=== PATIENT | female | born 1935 | race Caucasian/White ===

== ENCOUNTER 2016-11-03 15:35 | Inpatient (IN) | payer OTHER, MEDICARE ==
[2016-11-03] VITALS (10 sets, daily range): BP systolic 87–146; BP diastolic 50–88; PULSE 86–138; RESP 18–22; TEMP 97.9–98; O2SAT 92–95
[~2016-11-03] VITALS: Ht 149.9 cm; Wt 77.9 kg
[~2016-11-03 15:35] MED LIST: ALBU1AER INH; ASPI81TA82 PO; ATOR10TA PO; CETI10 PO; CLIN1CAP6 PO; ENAL20TA81 PO; GABA100C4 PO; GLUCTAB PO; HYDR-2768 PO; IRON325T2 PO; LEVO100T4 PO; MAGN400C2 PO; METF-324 PO; METO50TA PO; OMEP20TA39 PO; PERC5TAB12 PO; SPIRCAP INH; TAB-TAB PO; Z.0.OXYGEN INH
[2016-11-03] MEDS ORDERED: SODIUM CHLORIDE 0.9% FLUSH 5 ML FLUSH IVF PRN ×2 (16:00→18:15)
[2016-11-03] MEDS: RESP: ALBUTEROL 2.5 MG/3 ML NEB (SCH) INH (16:02)
--- NOTE | 2016-11-03 16:12 | PD ---
HPI Chief Complaint: copd exacerbation Time Seen by Provider: 15:42 Travel History International Travel<30 days: No Contact w/Intl Traveler<30days: No History of Present Illness HPI Patient is an 81-year-old female with history of COPD who wears 2 L of oxygen nasal cannula at nighttime, presents to the emergency room with COPD exacerbation. Patient reports for the past few days, she has had an increased productive cough with increased congestion. Reports that when she coughs, she has thick yellow -green mucous production. Reports no fever/chills. Reports that her son was sick prior to her with similar symptoms and may have gotten her sick. Patient denies any recent travels/trips. pt presents to ER via [facility]. pt was given solumedrol 125mg as well as 4 duonebs on route to ER. PFSH Past Medical History Cancer: No Cardiovascular Problems: No High Cholesterol: Yes COPD: Yes Diabetes: Yes Diminished Hearing: No Endocrine: Yes Gastrointestinal Disorders: Yes (COLITIS,DIVERTICULITIS ; GERD) Genitourinary: Yes (CURRENTLY ON CIPRO FOR UTI) Hepatitis: No Hiatal Hernia: No Hypertension: Yes Immune Disorder: No Musculoskeletal: Yes Neurologic: Yes (BACK PROBLEM; ARTHRITIS) Psychiatric: No Reproductive: No Respiratory: Yes (COPD; SLEEP APNEA ; O2 HS @2 LITERS) Sleep Apnea: Yes Thyroid Disease: Yes Menopausal: Yes Past Surgical History Abdominal Surgery: Yes ( X3) Section: Yes Eye Surgery: Yes (MAGNUS CATARACT EXTRACTION) Gynecologic Surgery: Yes ( X 3) Other Surgery: Yes Social History Alcohol Use: No Tobacco Use: No (quit 28 years ago) Substance Use: No Allergies-Medications (Allergen,Severity, Reaction): Coded Allergies: Penicillin (Verified Allergy, Intermediate, Rash, 11/03/16) Reported Meds & Prescriptions Reported Meds & Active Scripts Active Reported Levothyroxine (Levothyroxine Sodium) 88 Mcg Tab 88 Mcg PO DAILY Proair Hfa 8.5 GM Inh (Albuterol Sulfate) 90 Mcg/Act Aer 2 Puff INH Q6H PRN 108 mcg/actuation Latanoprost Opth Drops (Latanoprost) 0.005% Drops 1 Drop EACH EYE HS Refrigerate until opened. Stool Softener (Docusate Sodium) 100 Mg Cap 100 Mg PO BID Multivitamin Adults (Multiple Vitamins W/ Minerals) 1 Tab 1 Tab PO DAILY Iron (Ferrous Sulfate) 50 Mg Tab 65 Mg PO DAILY Aspirin 81 Mg Tabdr 81 Mg PO DAILY Fish Oil + D3 (Fish Oil-Cholecalciferol) 1,200-1,000 Mg-Unit Cap 1 Cap PO BID Magnesium Oxide 500 Mg Tab 500 Mg PO BID Vitamin B-12 (Cyanocobalamin) 500 Mcg Tab 500 Mcg PO DAILY Vitamin D (Cholecalciferol) 1,000 Unit Tab 1,000 Units PO DAILY Spiriva Handihaler (Tiotropium Inh) 18 Mcg Cap 18 Mcg INH DAILY 1 capsule = 18 mcg Gabapentin 100 Mg Cap 100 Mg PO TID Atorvastatin (Atorvastatin Calcium) 10 Mg Tab 10 Mg PO HS Hydrochlorothiazide 12.5 Mg Cap 12.5 Mg PO DAILY Enalapril (Enalapril Maleate) 20 Mg Tab 20 Mg PO BID Metoprolol Tartrate 50 Mg Tab 50 Mg PO BID Review of Systems General / Constitutional: No: Fever, Chills Eyes: No: Visual changes HENT: No: Headaches Cardiovascular: No: Chest Pain or Discomfort Respiratory: Positive: Cough, Shortness of Breath, Wheezing Gastrointestinal: No: Nausea, Vomiting, Diarrhea, Abdominal Pain Genitourinary: No: Dysuria Musculoskeletal: No: Pain Skin: No Rash Neurologic: No: Weakness Psychiatric: No: Depression Endocrine: No: Polydipsia Hematologic/Lymphatic: No: Easy Bruising Physical Exam Narrative GENERAL: Patient in mild distress SKIN: Warm and dry. HEAD: Atraumatic. Normocephalic. EYES: Pupils equal and round. No scleral icterus. No injection or drainage. ENT: No nasal bleeding or discharge. Mucous membranes pink and moist. NECK: Trachea midline. No JVD. CARDIOVASCULAR: Regular rate and rhythm. No murmur appreciated. RESPIRATORY: Patient with scattered wheezing on exam, pt with intercostal retractions GASTROINTESTINAL: Abdomen soft, non-tender, nondistended. Hepatic and splenic margins not palpable. MUSCULOSKELETAL: No obvious deformities. No clubbing. No cyanosis. +2 edema to b/l le's NEUROLOGICAL: Awake and alert. No obvious cranial nerve deficits. Motor grossly within normal limits. Normal speech. PSYCHIATRIC: Appropriate mood and affect; insight and judgment normal. Data Data Last Documented VS Vital Signs Date Time Temp Pulse Resp B/P Pulse Ox O2 Delivery O2 Flow Rate FiO2 11/03/16 16:23 95 2 11/03/16 16:23 Nasal Cannula 11/03/16 16:13 86 22 11/03/16 15:41 97.9 146/79 Orders Complete Blood Count With Diff (11/03/16 15:46) Comprehensive Metabolic Panel (11/03/16 15:46) B-Type Natriuretic Peptide (11/03/16 15:46) Act Partial Throm Time (Ptt) (11/03/16 15:46) Prothrombin Time / Inr (Pt) (11/03/16 15:46) Ckmb (Isoenzyme) Profile (11/03/16 15:46) Troponin I (11/03/16 15:46) Urinalysis - C+S If Indicated (11/03/16 15:46) Influenzae A/B Antigen (11/03/16 15:46) Blood Culture (11/03/16 15:46) Iv Access Insert/Monitor (11/03/16 15:46) Ecg Monitoring (11/03/16 15:46) Oximetry (11/03/16 15:46) Oxygen Administration (11/03/16 15:46) Chest, Single Ap (11/03/16 15:46) Sodium Chloride 0.9% Flush (Ns Flush) (11/03/16 16:00) Albuterol Neb (Albuterol Neb) (11/03/16 16:00) Lactic Acid Sepsis Protocol (11/03/16 15:46) Sputum Culture And Gram Stain (11/03/16 16:08) Magnesium Sulfate 1 Gm Premix (Magnesium (11/03/16 16:15) Albuterol Neb (Albuterol Neb) (11/03/16 17:15) Albuterol Neb (Albuterol Neb) (11/03/16 17:15) Admit Order (Ed Use Only) (11/03/16 17:13) Labs Laboratory Tests Test 11/03/16 11/03/16 15:50 17:00 White Blood Count 12.0 TH/MM3 Red Blood Count 3.78 MIL/MM3 Hemoglobin 12.0 GM/DL Hematocrit 37.0 % Mean Corpuscular Volume 97.9 FL Mean Corpuscular Hemoglobin 31.8 PG Mean Corpuscular Hemoglobin 32.5 % Concent Red Cell Distribution Width 12.0 % Platelet Count 228 TH/MM3 Mean Platelet Volume 8.8 FL Neutrophils (%) (Auto) 76.1 % Lymphocytes (%) (Auto) 16.3 % Monocytes (%) (Auto) 4.8 % Eosinophils (%) (Auto) 1.6 % Basophils (%) (Auto) 1.2 % Neutrophils # (Auto) 9.1 TH/MM3 Lymphocytes # (Auto) 2.0 TH/MM3 Monocytes # (Auto) 0.6 TH/MM3 Eosinophils # (Auto) 0.2 TH/MM3 Basophils # (Auto) 0.1 TH/MM3 CBC Comment DIFF FINAL Differential Comment Prothrombin Time 10.9 SEC Prothromb Time International 1.0 RATIO Ratio Activated Partial 28.0 SEC Thromboplast Time Sodium Level 131 MEQ/L Potassium Level 3.6 MEQ/L Chloride Level 90 MEQ/L Carbon Dioxide Level 29.6 MEQ/L Anion Gap 11 MEQ/L Blood Urea Nitrogen 16 MG/DL Creatinine 0.87 MG/DL Estimat Glomerular Filtration 63 ML/MIN Rate Random Glucose 111 MG/DL Lactic Acid Level 1.6 mmol/L Calcium Level 9.2 MG/DL Total Bilirubin 0.8 MG/DL Aspartate Amino Transf 27 U/L (AST/SGOT) Alanine Aminotransferase 17 U/L (ALT/SGPT) Alkaline Phosphatase 61 U/L Total Creatine Kinase 97 U/L Troponin I 0.02 NG/ML B-Type Natriuretic Peptide 196 PG/ML Total Protein 7.3 GM/DL Albumin 3.3 GM/DL Urine Collection Type CLEAN CATCH Urine Color YELLOW Urine Turbidity CLEAR Urine pH 6.5 Urine Specific [place] 1.015 Urine Protein TRACE mg/dL Urine Glucose (UA) NEG mg/dL Urine Ketones NEG mg/dL Urine Occult Blood NEG Urine Nitrite NEG Urine Bilirubin NEG Urine Leukocyte Esterase NEG Urine WBC 0-2 /hpf Urine Squamous Epithelial 0-5 /hpf Cells Microscopic Urinalysis Comment CULT NOT INDICATED MDM Medical Decision Making Medical Screen Exam Complete: Yes Emergency Medical Condition: Yes Interpretation(s) EKG at 1516: Normal sinus rhythm at 74 bpm, QT/qtc: 400/447, no acute st or t wave changes Differential Diagnosis copd exacerbation, pneumonia, influenza, PE, arrhythmia, electrolyte abnormality , pneumothorax Narrative Course Patient is an 81-year-old female with history of COPD, presents to emergency room with complaints of COPD exacerbation. Patient reports that for the past 3 days, she has had increased cough congestion with thick sputum production. Patient has had sick contacts at home. Patient was given Solu-Medrol 125 mg IV by EMS as well as 4 DuoNeb's Patient with continued wheezing and increased work of breathing with retraction on exam. IV magnesium as well as albuterol treatments ordered for patient. CBC, BMP, EKG, x-ray of chest, lactate and blood culture ordered for patient. We'll continue to monitor patient Kecia Dailey DO Nov 03, 2016 16:12
[2016-11-03] MEDS ORDERED: MAGNESIUM SULFATE 1 GM PREMIX 100 ML IV ONE (16:15)
[2016-11-03 16:18] LABS: AUTOMATED NEUTROPHIL # 9.1 TH/MM3 (1.8-7.7); BASOPHIL # 0.1 TH/MM3 (0-0.2); BASOPHIL % 1.2 % (0.0-2.0); EOSINOPHIL # 0.2 TH/MM3 (0-0.4); EOSINOPHIL % 1.6 % (0.0-4.0); LYMPH % 16.3 % (9.0-44.0); MEAN CELL VOLUME 97.9 FL (80.0-100.0); MEAN CORPUSCULAR HEMOGLOBIN 31.8 PG (27.0-34.0); MEAN CORPUSCULAR HGB CONC 32.5 % (32.0-36.0); MONO % 4.8 % (0.0-8.0); NEUT % 76.1 % (16.0-70.0); PLATELET COUNT 228 TH/MM3 (150-450); RED BLOOD COUNT 3.78 MIL/MM3 (4.00-5.30)
[2016-11-03 16:19] LABS: HEMO FLAGS DIFF FINAL
[2016-11-03 16:26] LABS: CHLORIDE 90 MEQ/L (98-107); POTASSIUM 3.6 MEQ/L (3.5-5.1); SODIUM (NA) 131 MEQ/L (136-145)
[2016-11-03 16:30] LABS: ANION GAP 11 MEQ/L (5-15); BICARBONATE 29.6 MEQ/L (21.0-32.0); BLOOD UREA NITROGEN 16 MG/DL (7-18)
[2016-11-03 16:32] LABS: PROTHROMBIN TIME - PATIENT 10.9 SEC (9.8-11.6)
[2016-11-03 16:33] LABS: ALT (GPT) 17 U/L (10-53); AST (GOT) 27 U/L (15-37); GLOMERULAR FILTRATION RATE 63 ML/MIN (>89)
[2016-11-03 16:35] LABS: TOTAL BILIRUBIN ADULT 0.8 MG/DL (0.2-1.0)
[2016-11-03 16:36] LABS: ALKALINE PHOSPHATASE 61 U/L (45-117)
[2016-11-03 16:38] LABS: CREATINE KINASE 97 U/L (26-192)
[2016-11-03] MEDS ORDERED: LATA0.002 EACH EYE (16:44)
[2016-11-03] MEDS ORDERED: ATOR10TA15 PO (16:44)
[2016-11-03] MEDS ORDERED: MAGN500T2 PO (16:44)
[2016-11-03] MEDS ORDERED: ASPI1TAB69 PO (16:44)
[2016-11-03] MEDS ORDERED: METO50TA PO (16:44)
[2016-11-03] MEDS ORDERED: GABA100C4 PO (16:44)
[2016-11-03] MEDS ORDERED: ENAL20TA PO (16:44)
[2016-11-03] MEDS ORDERED: STOO100C PO (16:44)
[2016-11-03] MEDS ORDERED: MULT1TAB84 PO (16:44)
[2016-11-03] MEDS ORDERED: [UNRECOGNIZED DRUG - CODE] PO (16:44)
[2016-11-03] MEDS ORDERED: SPIRCAP INH (16:44)
[2016-11-03] MEDS ORDERED: ALBUAER3 INH (16:44)
[2016-11-03] MEDS ORDERED: HYDR12.57 PO (16:44)
[2016-11-03] MEDS ORDERED: VITA500T4 PO (16:44)
[2016-11-03] MEDS ORDERED: VITA100064 PO (16:44)
[2016-11-03] MEDS ORDERED: FISHCAP4 PO (16:44)
[2016-11-03] MEDS ORDERED: FERR1TAB58 PO (16:44)
--- NOTE | 2016-11-03 17:08 | RADHPO ---
EXAM DATE/TIME: 11/03/2016 16:23 [facility] COMPARISON: CHEST SINGLE AP, October 23, 2014, 13:48. INDICATIONS : Shortness of breath. MEDICAL HISTORY : None. SURGICAL HISTORY : None. ENCOUNTER: Initial ACUITY: 1 day PAIN SCORE: 3/10 LOCATION: Bilateral chest FINDINGS: A single view of the chest demonstrates the lungs to be symmetrically aerated without evidence of mas s, infiltrate or effusion. The cardiomediastinal contours are unremarkable. Osseous structures are intact. CONCLUSION: No acute cardiopulmonary disease demonstrated. Pj Armando MD on November 03, 2016 at 17:06 Board Certified Radiologist. This report was verified electronically.
[2016-11-03] MEDS ORDERED: RESP: ALBUTEROL 2.5 MG/3 ML NEB (SCH) NEB ONE ×2 (17:15)
[2016-11-03 17:26] LABS: BLOOD, URINE NEG (NEG); GLUCOSE,URINE NEG (NEG); KETONE, URINE NEG (NEG); NITRITE,URINE NEG (NEG); PH, URINE 6.5 (5.0-8.5)
[2016-11-03 17:46] LABS: METHOD OF COLLECTION CLEAN CATCH
[2016-11-03 17:47] LABS: COMMENT (UR) CULT NOT INDICATED; CULTURE IF INDICATED CULT NOT INDICATED; SQUAMOUS EPITHELIAL CELL URINE 0-5 /hpf (0-5); URINE COLOR YELLOW (YELLW/STRAW); WBC, URINE 0-2 /hpf (0-5)
[2016-11-03] MEDS ORDERED: LEVO88TA2 PO (17:52)
--- NOTE | 2016-11-03 18:00 | HHI.HP ---
[facility] Valentino Ellis MD Admission Diagnosis COPD Exacerbation Diagnoses: (1) COPD exacerbation Diagnosis: Principal (2) Leukocytosis Diagnosis: Principal Chief Complaint: "can't breathe good" Travel History International Travel<30 Days: No Contact w/Intl Traveler <30 Da: No Traveled to Known Affected Are: No History of Present Illness 81 year-old female with history of COPD, diabetes mellitus, hypertension, hyperlipidemia, thyroid disease, anemia, GERD, and colitis is admitted for COPD exacerbation. 2 daughters at bedside. Patient states she can' t breathe well. She has cold symptoms which started on Friday. Her daughter states she has been wheezing and dizzy, hasn't eaten, and is weak. Daughter states she was unable to bring patient to the car and hence called ambulance. States the patient's son has been sick. The patient admits to presyncopal feeling and weakness. She admits to productive cough with yellow phlegm. Patient uses 2 L of oxygen at night and as needed during the day although her daughter states she is supposed to use it during the daytime. She admits to feeling constipated but states this is chronic. She denies any fevers, chills, chest pain. Denies any nausea, vomiting, or diarrhea. Her leadership program associate is Dr. Webb. PCP is Valentino lElis. Review of Systems Other ROS 10 negative unless otherwise indicated in history of present illness. Past Family Social History Past Medical History COPD on O2 at night Hypertension Hyperlipidemia A. fib with RVR during hospitalization in 2013 Diabetes mellitus. Patient was taken off metformin a couple of months ago due to hemoglobin A1c of 5.8. Thyroid disease Colitis, diverticulitis GERD Back pain, arthritis EMR indicates history of UTIs and pyelonephritis Past Surgical History 3 Bilateral cataract surgery Tonsillectomy Reported Medications Levothyroxine (Levothyroxine Sodium) 88 Mcg Tab 88 Mcg PO DAILY Proair Hfa 8.5 GM Inh (Albuterol Sulfate) 90 Mcg/Act Aer 2 Puff INH Q6H PRN 108 mcg/actuation Latanoprost Opth Drops (Latanoprost) 0.005% Drops 1 Drop EACH EYE HS Refrigerate until opened. Stool Softener (Docusate Sodium) 100 Mg Cap 100 Mg PO BID Multivitamin Adults (Multiple Vitamins W/ Minerals) 1 Tab 1 Tab PO DAILY Iron (Ferrous Sulfate) 50 Mg Tab 65 Mg PO DAILY Aspirin 81 Mg Tabdr 81 Mg PO DAILY Fish Oil + D3 (Fish Oil-Cholecalciferol) 1,200-1,000 Mg-Unit Cap 1 Cap PO BID Magnesium Oxide 500 Mg Tab 500 Mg PO BID Vitamin B-12 (Cyanocobalamin) 500 Mcg Tab 500 Mcg PO DAILY Vitamin D (Cholecalciferol) 1,000 Unit Tab 1,000 Units PO DAILY Spiriva Handihaler (Tiotropium Inh) 18 Mcg Cap 18 Mcg INH DAILY 1 capsule = 18 mcg Gabapentin 100 Mg Cap 100 Mg PO TID Atorvastatin (Atorvastatin Calcium) 10 Mg Tab 10 Mg PO HS Hydrochlorothiazide 12.5 Mg Cap 12.5 Mg PO DAILY Enalapril (Enalapril Maleate) 20 Mg Tab 20 Mg PO BID Metoprolol Tartrate 50 Mg Tab 50 Mg PO BID Allergies: Coded Allergies: Penicillin (Verified Allergy, Intermediate, Rash, 11/03/16) Family History Mother: Enlarged heart, diabetes. Cancer runs in father's side of family. Social History Patient quit smoking 50+ years ago. Denies alcohol use. Denies illicit drug use. Physical Exam Vital Signs Vital Signs Date Time Temp Pulse Resp B/P Pulse Ox O2 Delivery O2 Flow Rate FiO2 11/03/16 16:23 95 2 11/03/16 16:23 95 Nasal Cannula 2 11/03/16 16:13 86 22 95 Nasal Cannula 2 11/03/16 16:01 95 Nasal Cannula 2.00 11/03/16 15:41 97.9 86 22 146/79 95 Physical Exam GENERAL: This is a pleasant elderly patient who appears tired and ill. SKIN: No rashes, ecchymoses or lesions. HEAD: Atraumatic. Normocephalic. EYES: No scleral icterus. No injection or drainage. ENT: Tongue dry. Airway patent. NECK: Trachea midline. CARDIOVASCULAR: Tachycardic rate with regular rhythm. RESPIRATORY: Significant wheezing. Productive cough. GASTROINTESTINAL: Abdomen soft, non-tender, nondistended. MUSCULOSKELETAL: Bilateral lower extremity edema. NEUROLOGICAL: Awake and alert. Motor grossly within normal limits. Normal speech. Laboratory Laboratory Tests Test 11/03/16 11/03/16 15:50 17:00 White Blood Count 12.0 Red Blood Count 3.78 Hemoglobin 12.0 Hematocrit 37.0 Mean Corpuscular Volume 97.9 Mean Corpuscular Hemoglobin 31.8 Mean Corpuscular Hemoglobin 32.5 Concent Red Cell Distribution Width 12.0 Platelet Count 228 Mean Platelet Volume 8.8 Neutrophils (%) (Auto) 76.1 Lymphocytes (%) (Auto) 16.3 Monocytes (%) (Auto) 4.8 Eosinophils (%) (Auto) 1.6 Basophils (%) (Auto) 1.2 Neutrophils # (Auto) 9.1 Lymphocytes # (Auto) 2.0 Monocytes # (Auto) 0.6 Eosinophils # (Auto) 0.2 Basophils # (Auto) 0.1 CBC Comment DIFF FINAL Differential Comment Prothrombin Time 10.9 Prothromb Time International 1.0 Ratio Activated Partial 28.0 Thromboplast Time Sodium Level 131 Potassium Level 3.6 Chloride Level 90 Carbon Dioxide Level 29.6 Anion Gap 11 Blood Urea Nitrogen 16 Creatinine 0.87 Estimat Glomerular Filtration 63 Rate Random Glucose 111 Lactic Acid Level 1.6 Calcium Level 9.2 Total Bilirubin 0.8 Aspartate Amino Transf 27 (AST/SGOT) Alanine Aminotransferase 17 (ALT/SGPT) Alkaline Phosphatase 61 Total Creatine Kinase 97 Troponin I 0.02 B-Type Natriuretic Peptide 196 Total Protein 7.3 Albumin 3.3 Urine Collection Type CLEAN CATCH Urine Color YELLOW Urine Turbidity CLEAR Urine pH 6.5 Urine Specific [place] 1.015 Urine Protein TRACE Urine Glucose (UA) NEG Urine Ketones NEG Urine Occult Blood NEG Urine Nitrite NEG Urine Bilirubin NEG Urine Leukocyte Esterase NEG Urine WBC 0-2 Urine Squamous Epithelial 0-5 Cells Microscopic Urinalysis Comment CULT NOT INDICATED Date/Time Procedure Status Source Growth 11/03/16 16:05 Gram Stain Received Sputum Expectorated Sputum Pending 11/03/16 16:05 Sputum Culture Received Sputum Expectorated Sputum Pending 11/03/16 16:00 Aerobic Blood Culture Received Blood Peripheral Pending 11/03/16 16:00 Anaerobic Blood Culture Received Blood Peripheral Pending 11/03/16 15:50 Influenza Types A,B Antigen (MAURICE) - Final Complete Nasal Aspirate NEGATIVE FOR FLU A AND B ANTIGEN.... Result Diagram: 11/03/16 1550 11/03/16 1550 Assessment and Plan Assessment and Plan 81 year-old female with: COPD exacerbation: Significant wheezing on exam. Mild leukocytosis of 12.0. Oxygen saturation 95% on 2 L. Patient appears tired and generally weak due to illness. Influenza test is negative. Lactic acid is normal. BNP 196. Chest x- ray personally reviewed and compared to prior from 2013, appears similar. No acute abnormalities. Patient received 125 mg Solu-Medrol in ambulance and total of 8 DuoNeb's as well as 1 g of magnesium IV. -Start azithromycin 500 mg IV every 24 -Solu-Medrol 60 mg every 6 hours IV -DuoNebs q 4 hours scheduled with albuterol q2 prn. Patient's heart rate on telemetry is 130s-150 during evaluation likely due to 8 DuoNebs which had been administered although patient also did not take her metoprolol this morning per med rec. EKG personally interpreted without arrhythmia. Will not continue nebulizer treatments for a few hours due to this. -Monitor on telemetry -Sputum culture pending -Oxygen Chronic medical problems include anemia, hypertension, hyperlipidemia, thyroid disease: -Hold home Lisinopril and HCTZ due to hypotension on most recent vitals (96/54 MAP 68). Continue night dose of metoprolol as patient is tachycardic only if SBP >110. Constipation: Scheduled Colace, Dulcolax as needed. Deconditioning: Consult physical therapy. DVT prevention: heparin sq. Written by Eli Arce PA-C acting as scribe for Dr. Fontana on 11/03/16 at 1745. The documentation accurately reflects the work and decisions performed face-to- face by de Dr. Fontana on 11/03/16 at 1745. Discussed Condition With ED physician, patient and her daughters Eli Arce Nov 03, 2016 18:00
[2016-11-03] MEDS: AZITHROMYCIN INJ 500 MG in SODIUM CHLOR 0.9% 250 ML INJ 250 ML IV SCH (18:27)
[2016-11-03] MEDS ORDERED: BISACODYL 10 MG SUPP PR PRN (19:00)
[2016-11-03] MEDS ORDERED: RESP: ALBUTEROL 2.5 MG/3 ML NEB (PRN) INH (20:00)
[2016-11-03] MEDS: RESP: ALBUTEROL 2.5 MG/IPRATROPIUM 0.5 MG NEB (SCH) INH ×2 (20:00→23:20)
[2016-11-03] MEDS: HEPARIN SODIUM - SQ 10,000 UNITS/ML VIAL SQ SCH (20:49)
[2016-11-03] MEDS: METOPROLOL TARTRATE 50 MG TAB PO SCH (20:50)
[2016-11-03] MEDS: SODIUM CHLORIDE 0.9% FLUSH 5 ML FLUSH IVF SCH (20:50)
[2016-11-03] MEDS: MAGNESIUM OXIDE 400 MG TAB PO SCH (20:50)
[2016-11-03] MEDS: DOCUSATE SODIUM 100 MG CAP PO SCH (20:50)
[2016-11-03] MEDS: ATORVASTATIN 10 MG TAB PO SCH (20:53)
[2016-11-03] MEDS: LATANOPROST 0.005% OPHT SOLN 2.5 ML BTL EACH EYE SCH (20:53)
[2016-11-03] MEDS: methylPREDNISolone SOD SUCC 125 MG/2 ML VIAL IVP SCH (21:34)
[2016-11-04] VITALS (12 sets, daily range): BP systolic 131–156; BP diastolic 70–77; PULSE 63–71; RESP 17–18; TEMP 96.5–97.8; O2SAT 92–97
[2016-11-04] MEDS: methylPREDNISolone SOD SUCC 125 MG/2 ML VIAL IVP SCH ×4 (03:45→21:33)
[2016-11-04] MEDS: RESP: ALBUTEROL 2.5 MG/IPRATROPIUM 0.5 MG NEB (SCH) INH ×6 (04:12→23:24)
[2016-11-04] MEDS: ONDANSETRON HCL 4 MG/2 ML VIAL IV PUSH PRN ×2 (04:29→16:52)
[2016-11-04] MEDS: LEVOTHYROXINE SODIUM 88 MCG TAB PO SCH (05:55)
[2016-11-04 06:28] LABS: AUTOMATED NEUTROPHIL # 10.9 TH/MM3 (1.8-7.7); BASOPHIL # 0.3 TH/MM3 (0-0.2); BASOPHIL % 2.5 % (0.0-2.0); EOSINOPHIL # 0.1 TH/MM3 (0-0.4); EOSINOPHIL % 0.7 % (0.0-4.0); LYMPH % 5.3 % (9.0-44.0); LYMPHOCYTE # 0.6 TH/MM3 (1.0-4.8); MEAN CELL VOLUME 97.4 FL (80.0-100.0); MEAN CORPUSCULAR HGB CONC 32.9 % (32.0-36.0); NEUT % 90.5 % (16.0-70.0); PLATELET COUNT 224 TH/MM3 (150-450); RED BLOOD COUNT 3.59 MIL/MM3 (4.00-5.30); RED CELL DISTRIBUTION WIDTH 11.9 % (11.6-17.2); WHITE BLOOD COUNT 12.1 TH/MM3 (4.0-11.0)
[2016-11-04 06:29] LABS: HEMO FLAGS AUTO DIFF
[2016-11-04 06:38] LABS: BICARBONATE 30.8 MEQ/L (21.0-32.0)
[2016-11-04 07:05] LABS: BANDS 3 % (0-6); NEUTROPHIL # MANUAL DIFF 10.9 TH/MM3 (1.8-7.7); POLYS (SEG NEUTROPHILS) 87 % (16-70); SCAN/DIFF FINAL DIFF MANUAL; WBC DIFF SAMPLE 100
[2016-11-04] MEDS: HEPARIN SODIUM - SQ 10,000 UNITS/ML VIAL SQ SCH ×2 (08:51→21:31)
[2016-11-04] MEDS: ASPIRIN EC 81 MG TABEC PO SCH (08:52)
[2016-11-04] MEDS: DOCUSATE SODIUM 100 MG CAP PO SCH ×2 (08:52→21:32)
[2016-11-04] MEDS: MULTIVITAMINS/MINERALS THERAPEUTIC TAB PO SCH (08:53)
[2016-11-04] MEDS: METOPROLOL TARTRATE 50 MG TAB PO SCH ×2 (08:53→21:31)
[2016-11-04] MEDS: MAGNESIUM OXIDE 400 MG TAB PO SCH ×2 (08:53→21:32)
[2016-11-04] MEDS: CHOLECALCIFEROL (VIT D3) 1000 UNIT TAB PO SCH (08:53)
[2016-11-04] MEDS: CYANOCOBALAMIN 1,000 MCG TAB PO SCH (08:54)
[2016-11-04] MEDS: SODIUM CHLORIDE 0.9% FLUSH 5 ML FLUSH IVF SCH ×2 (08:55→21:33)
[2016-11-04] MEDS ORDERED: GABAPENTIN 100 MG CAP PO SCH (09:00)
[2016-11-04] MEDS ORDERED: FERROUS SULFATE 325 MG (65 MG ELEMENTAL IRON) TAB PO SCH (09:00)
[2016-11-04] MEDS ORDERED: LEVOTHYROXINE SODIUM 88 MCG TAB PO SCH (09:00)
[2016-11-04] MEDS ORDERED: GABAPENTIN 100 MG CAP PO ONE (09:15)
[2016-11-04] MEDS ORDERED: GLUCAGON 1 MG/ML VIAL OTHER PRN (09:30)
[2016-11-04] MEDS ORDERED: DEXTROSE 50% IN WATER 50 ML VIAL(D50) IV PUSH PRN (09:30)
[2016-11-04] MEDS: ENALAPRIL MALEATE 10 MG TAB PO SCH ×2 (10:19→21:33)
[2016-11-04] MEDS: HYDROCHLOROTHIAZIDE 12.5 MG CAP PO SCH (10:19)
[2016-11-04] MEDS: ACETAMINOPHEN 325 MG TAB PO PRN (10:20)
[2016-11-04] MEDS: INSULIN ASPART SUPPLEMENTAL SCALE SQ SCH ×3 (13:27→21:00)
[2016-11-04] MEDS: AZITHROMYCIN INJ 500 MG in SODIUM CHLOR 0.9% 250 ML INJ 250 ML IV SCH (16:53)
--- NOTE | 2016-11-04 17:17 | HHI.PR ---
Subjective Remarks Pt sleeping during duoneb treatment, she remains weak per nursing staff, stable on NC. Objective Vitals Vital Signs Date Time Temp Pulse Resp B/P Pulse Ox O2 Delivery O2 Flow Rate FiO2 11/04/16 12:00 96.6 63 17 136/74 93 11/04/16 11:43 71 11/04/16 08:06 96 Nasal Cannula 2.00 11/04/16 08:00 97.0 63 18 136/76 96 11/04/16 07:09 Nasal Cannula 2 11/04/16 07:09 97 Nasal Cannula 2 11/04/16 07:09 97.8 68 17 156/77 97 Nasal Cannula 2 11/04/16 05:00 93 Nasal Cannula 2 11/04/16 05:00 70 18 153/71 93 Nasal Cannula 2 11/04/16 03:35 64 18 142/76 92 Nasal Cannula 2 11/04/16 03:00 18 92 Nasal Cannula 2 11/04/16 01:40 65 18 134/70 93 Nasal Cannula 2 11/04/16 01:00 18 93 Nasal Cannula 2 11/03/16 23:14 121 18 128/88 92 Nasal Cannula 2 11/03/16 23:00 92 Nasal Cannula 2 11/03/16 22:03 123 18 123/69 93 Nasal Cannula 2 11/03/16 21:21 128 18 117/71 92 Nasal Cannula 2 11/03/16 21:00 92 Nasal Cannula 2 11/03/16 20:43 124 20 121/61 92 Nasal Cannula 2 11/03/16 19:55 93 Nasal Cannula 2.00 11/03/16 19:22 98.0 125 18 87/50 93 Nasal Cannula 2 11/03/16 19:01 20 94 Nasal Cannula 2 11/03/16 18:28 138 20 96/54 94 Nasal Cannula 2 I/O 11/03/16 11/03/16 11/03/16 11/04/16 11/04/16 11/04/16 06:59 14:59 22:59 06:59 14:59 22:59 Intake Total 100 ml Balance 100 ml Intake IV Total 100 ml # Voids 2 Result Diagram: 11/04/16 0605 11/04/16 06 Objective Remarks GENERAL: Well-nourished, well-developed obese elderly CF patient. SKIN: Warm and dry. HEAD: Normocephalic. EYES: No scleral icterus. No injection or drainage. NECK: Supple, trachea midline. No JVD or lymphadenopathy. CARDIOVASCULAR: Regular rate and rhythm without murmurs, gallops, or rubs. RESPIRATORY: Breath sounds equal bilaterally with end exp wheeze anteriorly. No accessory muscle use. GASTROINTESTINAL: Abdomen soft, non-tender, nondistended. EXTREMITIES: No cyanosis, or edema. NEUROLOGICAL: sleeping. A/P Problem List: (1) COPD exacerbation ICD Code: J44.1 Status: Acute (2) Leukocytosis ICD Code: D72.829 Status: Acute Assessment and Plan 81 year-old female with: COPD exacerbation: Significant wheezing on exam yesterday, much improved today but she still requires continued inpatient treatment as she failed treatment in [facility] and ER. -Continue azithromycin 500 mg IV every 24 -Solu-Medrol 60 mg every 6 hours IV -DuoNebs q 4 hours scheduled with albuterol q2 prn. -Monitor on telemetry -Sputum culture growing Moraxella Catarrhalis - cont zithromax -Oxygen via NC -Hypertension. Blood pressure is running higher. I will resume her lisinopril. Hold HCTZ. Continue metoprolol. -Chronic anemia - stable. -Hypothyroidism. Continue Synthroid. -Constipation: Scheduled Colace, Dulcolax as needed. -Generalized weakness. Continue PT. -DVT prevention: heparin sq. Luh Banks MD Nov 04, 2016 17:17
[2016-11-04] MEDS ORDERED: MAGNESIUM HYDROXIDE SUSP 30 ML CUP PO PRN (18:30)
[2016-11-04] MEDS: POLYETHYLENE GLYCOL 17 GM PKG PO SCH (21:28)
[2016-11-04] MEDS: ATORVASTATIN 10 MG TAB PO SCH (21:32)
[2016-11-04] MEDS: GABAPENTIN 100 MG CAP PO SCH (21:32)
[2016-11-04] MEDS: LATANOPROST 0.005% OPHT SOLN 2.5 ML BTL EACH EYE SCH (21:42)
[2016-11-05] VITALS (8 sets, daily range): BP systolic 109–172; BP diastolic 59–92; PULSE 62–72; RESP 16–18; TEMP 97.5–98; O2SAT 18–98
[2016-11-05] MEDS: RESP: ALBUTEROL 2.5 MG/IPRATROPIUM 0.5 MG NEB (SCH) INH ×6 (03:56→23:35)
[2016-11-05] MEDS: ACETAMINOPHEN 325 MG TAB PO PRN (04:34)
[2016-11-05] MEDS: methylPREDNISolone SOD SUCC 125 MG/2 ML VIAL IVP SCH ×4 (04:36→21:44)
[2016-11-05] MEDS: LEVOTHYROXINE SODIUM 88 MCG TAB PO SCH (07:01)
[2016-11-05] MEDS: INSULIN ASPART SUPPLEMENTAL SCALE SQ SCH ×4 (07:05→21:35)
[2016-11-05] MEDS: MAGNESIUM OXIDE 400 MG TAB PO SCH ×2 (08:34→21:34)
[2016-11-05] MEDS: CHOLECALCIFEROL (VIT D3) 1000 UNIT TAB PO SCH (08:34)
[2016-11-05] MEDS: GABAPENTIN 100 MG CAP PO SCH ×2 (08:34→21:34)
[2016-11-05] MEDS: METOPROLOL TARTRATE 50 MG TAB PO SCH ×2 (08:34→21:34)
[2016-11-05] MEDS: MULTIVITAMINS/MINERALS THERAPEUTIC TAB PO SCH (08:34)
[2016-11-05] MEDS: CYANOCOBALAMIN 1,000 MCG TAB PO SCH ×2 (08:34→09:00)
[2016-11-05] MEDS: DOCUSATE SODIUM 100 MG CAP PO SCH ×2 (08:34→21:34)
[2016-11-05] MEDS: ASPIRIN EC 81 MG TABEC PO SCH (08:34)
[2016-11-05] MEDS: ENALAPRIL MALEATE 10 MG TAB PO SCH ×2 (08:34→21:34)
[2016-11-05] MEDS: HYDROCHLOROTHIAZIDE 12.5 MG CAP PO SCH (08:34)
[2016-11-05] MEDS: HEPARIN SODIUM - SQ 10,000 UNITS/ML VIAL SQ SCH ×2 (08:35→21:35)
[2016-11-05] MEDS: POLYETHYLENE GLYCOL 17 GM PKG PO SCH (08:35)
[2016-11-05] MEDS: SODIUM CHLORIDE 0.9% FLUSH 5 ML FLUSH IVF SCH ×2 (08:38→21:35)
[2016-11-05] MEDS ORDERED: IBUPROFEN 600 MG TAB PO PRN (09:00)
--- NOTE | 2016-11-05 12:12 | HHI.PR ---
Subjective Remarks The patient states that her cough and wheezing have improved by about 25% but she still gets easily fatigued. She does not feel any stronger. She does not want to go to a rehabilitation at discharge and she states she cannot afford co- pay for home health care. Objective Vitals Vital Signs Date Time Temp Pulse Resp B/P Pulse Ox O2 Delivery O2 Flow Rate FiO2 11/05/16 12:00 97.9 68 17 148/82 95 11/05/16 08:00 62 11/05/16 08:00 97.6 70 18 172/89 18 11/05/16 07:37 98 Nasal Cannula 2.00 11/05/16 04:00 97.5 72 18 159/87 96 11/05/16 00:00 98.0 68 16 109/59 96 11/04/16 23:24 95 Nasal Cannula 2.00 11/04/16 20:00 65 11/04/16 20:00 97.5 67 18 131/73 96 11/04/16 19:48 97 Nasal Cannula 2.00 11/04/16 16:00 96.5 64 18 133/76 95 I/O 11/04/16 11/04/16 11/04/16 11/05/16 11/05/16 11/05/16 06:59 14:59 22:59 06:59 14:59 22:59 Intake Total 240 ml 280 ml Balance 240 ml 280 ml Intake Oral 240 ml 280 ml # Voids 6 1 1 # Bowel Movements 0 0 0 Result Diagram: 11/04/16 0605 11/04/16 06 Objective Remarks GENERAL: Well-nourished, well-developed obese elderly CF patient. Appears fatigued. SKIN: Warm and dry. HEAD: Normocephalic. EYES: No scleral icterus. No injection or drainage. NECK: Supple, trachea midline. No JVD or lymphadenopathy. CARDIOVASCULAR: Regular rate and rhythm without murmurs, gallops, or rubs. RESPIRATORY: Breath sounds equal bilaterally with exp wheeze anteriorly. No accessory muscle use. GASTROINTESTINAL: Abdomen soft, non-tender, nondistended. EXTREMITIES: No cyanosis, or edema. NEUROLOGICAL: awake, alert, cognitively sharp. A/P Problem List: (1) COPD exacerbation ICD Code: J44.1 Status: Acute (2) Leukocytosis ICD Code: D72.829 Status: Acute Assessment and Plan 81 year-old female with: COPD exacerbation: Still wheezing, but she still requires continued inpatient treatment as she failed treatment in [facility] and ER. -Continue azithromycin 500 mg IV every 24 -Solu-Medrol 60 mg every 6 hours IV -DuoNebs q 4 hours scheduled with albuterol q2 prn. -Monitor on telemetry -Sputum culture growing Moraxella Catarrhalis - cont zithromax -Oxygen via NC -Hypertension. Cont HCTZ, enalapril, metoprolol. -Chronic anemia - stable. -Hypothyroidism. Continue Synthroid. -Constipation: Scheduled Colace, Dulcolax as needed. MOM this morning. -Generalized weakness. Continue PT. -DVT prevention: heparin sq. Luh Banks MD Nov 05, 2016 12:12
[2016-11-05] MEDS: AZITHROMYCIN INJ 500 MG in SODIUM CHLOR 0.9% 250 ML INJ 250 ML IV SCH (17:00)
[2016-11-05] MEDS: oxyCODONE/ACETAMINOPHEN 5 MG/325 MG TAB PO PRN ×2 (17:00→23:18)
[2016-11-05] MEDS: ATORVASTATIN 10 MG TAB PO SCH (21:34)
[2016-11-05] MEDS: LATANOPROST 0.005% OPHT SOLN 2.5 ML BTL EACH EYE SCH (21:39)
[2016-11-05] MEDS: FERROUS SULFATE 325 MG (65 MG ELEMENTAL IRON) TAB PO SCH (21:43)
[2016-11-06] VITALS: BP 169/92; PULSE 61; RESP 18; TEMP 96.9; O2SAT 98
[2016-11-06] MEDS: RESP: ALBUTEROL 2.5 MG/IPRATROPIUM 0.5 MG NEB (SCH) INH ×4 (03:57→15:14)
[2016-11-06] MEDS: LEVOTHYROXINE SODIUM 88 MCG TAB PO SCH (05:23)
[2016-11-06] MEDS: methylPREDNISolone SOD SUCC 125 MG/2 ML VIAL IVP SCH ×3 (05:23→15:56)
[2016-11-06] MEDS: INSULIN ASPART SUPPLEMENTAL SCALE SQ SCH ×3 (05:24→16:00)
[2016-11-06 07:26] VITALS: O2SAT 92
[2016-11-06 08:00] VITALS: BP 142/78; PULSE 62; RESP 17; TEMP 97.1; O2SAT 93
[2016-11-06] MEDS: ASPIRIN EC 81 MG TABEC PO SCH (09:19)
[2016-11-06] MEDS: METOPROLOL TARTRATE 50 MG TAB PO SCH (09:19)
[2016-11-06] MEDS: HYDROCHLOROTHIAZIDE 12.5 MG CAP PO SCH (09:19)
[2016-11-06] MEDS: CHOLECALCIFEROL (VIT D3) 1000 UNIT TAB PO SCH (09:19)
[2016-11-06] MEDS: DOCUSATE SODIUM 100 MG CAP PO SCH (09:20)
[2016-11-06] MEDS: MAGNESIUM OXIDE 400 MG TAB PO SCH (09:20)
[2016-11-06] MEDS: FERROUS SULFATE 325 MG (65 MG ELEMENTAL IRON) TAB PO SCH (09:20)
[2016-11-06] MEDS: MULTIVITAMINS/MINERALS THERAPEUTIC TAB PO SCH (09:20)
[2016-11-06] MEDS: CYANOCOBALAMIN 1,000 MCG TAB PO SCH (09:21)
[2016-11-06] MEDS: ENALAPRIL MALEATE 10 MG TAB PO SCH (09:21)
[2016-11-06] MEDS: GABAPENTIN 100 MG CAP PO SCH (09:22)
[2016-11-06] MEDS: SODIUM CHLORIDE 0.9% FLUSH 5 ML FLUSH IVF SCH (09:23)
[2016-11-06] MEDS: POLYETHYLENE GLYCOL 17 GM PKG PO SCH (09:23)
[2016-11-06] MEDS: HEPARIN SODIUM - SQ 10,000 UNITS/ML VIAL SQ SCH (09:23)
[2016-11-06] MEDS ORDERED: PRED20 PO (11:48)
[2016-11-06] MEDS ORDERED: NEBULIZER1 MI1 (11:48)
[2016-11-06] MEDS ORDERED: AZIT500T2 PO (11:48)
[2016-11-06] MEDS ORDERED: VENTAER INH (11:48)
[2016-11-06] MEDS ORDERED: IPRASOL INH (11:48)
--- NOTE | 2016-11-06 11:49 | HHI.FF ---
Face to Face Verification Diagnosis: (1) Positive blood cultures (2) COPD exacerbation (3) Chronic respiratory failure Physical Therapy Order: Evaluate and Treat Occupational Therapy Order: Evaluate and Treat Home Health Nursing Order: Medical education Oxygen administration education Medication education-adverse effect Nursing assessment with vital signs I have seen patient Ana Zepeda on 11/06/16. My clinical findings support the need for the requested home health care services because: Ltd mobility - disease progression Patient has SOB Deconditioned w/ increased weakness I certify that my clinical findings support that this patient is homebound because: Unsteady gait/balance Need for psychosocial assistance Luh Banks MD Nov 06, 2016 11:49
[2016-11-06] MEDS ORDERED: REME15TA PO (11:51)
[2016-11-06] MEDS: ACETAMINOPHEN 325 MG TAB PO PRN (11:52)
--- NOTE | 2016-11-06 11:54 | HHI.DS ---
Discharge Summary Admission Date Nov 04, 2016 at 16:22 Discharge Date: Nov 06, 2016 Admitting Diagnosis COPD Exacerbation (1) COPD exacerbation ICD Code: J44.1 Diagnosis: Principal (2) Leukocytosis ICD Code: D72.829 Diagnosis: Principal (3) Chronic respiratory failure ICD Code: J96.10 (4) Weakness generalized ICD Code: R53.1 (5) Depression ICD Code: F32.9 Procedures None Brief History - From Admission 81 year-old female with history of COPD, diabetes mellitus, hypertension, hyperlipidemia, thyroid disease, anemia, GERD, and colitis is admitted for COPD exacerbation. 2 daughters at bedside. Patient states she can' t breathe well. She has cold symptoms which started on Friday. Her daughter states she has been wheezing and dizzy, hasn't eaten, and is weak. Daughter states she was unable to bring patient to the car and hence called ambulance. States the patient's son has been sick. The patient admits to presyncopal feeling and weakness. She admits to productive cough with yellow phlegm. Patient uses 2 L of oxygen at night and as needed during the day although her daughter states she is supposed to use it during the daytime. She admits to feeling constipated but states this is chronic. She denies any fevers, chills, chest pain. Denies any nausea, vomiting, or diarrhea. Her inventory control assistant is Dr. Webb. PCP is Valentino Ellis. CBC/BMP: 11/04/16 0605 11/04/16 0605 Significant Findings Laboratory Tests Test 11/03/16 11/04/16 15:50 06:05 White Blood Count 12.0 TH/MM3 12.1 TH/MM3 (4.0-11.0) (4.0-11.0) Red Blood Count 3.78 MIL/MM3 3.59 MIL/MM3 (4.00-5.30) (4.00-5.30) Neutrophils (%) (Auto) 76.1 % 90.5 % (16.0-70.0) (16.0-70.0) Neutrophils # (Auto) 9.1 TH/MM3 10.9 TH/MM3 (1.8-7.7) (1.8-7.7) Sodium Level 131 MEQ/L 131 MEQ/L (136-145) (136-145) Chloride Level 90 MEQ/L 90 MEQ/L (98-107) (98-107) Estimat Glomerular Filtration 63 ML/MIN (>89) 53 ML/MIN (>89) Rate Random Glucose 111 MG/DL 170 MG/DL (74-106) (74-106) B-Type Natriuretic Peptide 196 PG/ML (0-100) Albumin 3.3 GM/DL (3.4-5.0) Hemoglobin 11.5 GM/DL (11.6-15.3) Lymphocytes (%) (Auto) 5.3 % (9.0-44.0) Basophils (%) (Auto) 2.5 % (0.0-2.0) Lymphocytes # (Auto) 0.6 TH/MM3 (1.0-4.8) Basophils # (Auto) 0.3 TH/MM3 (0-0.2) Neutrophils % (Manual) 87 % (16-70) Lymphocytes % 7 % (9-44) Neutrophils # (Manual) 10.9 TH/MM3 (1.8-7.7) Blood Urea Nitrogen 24 MG/DL (7-18) Imaging Last Impressions Chest X-Ray 11/03/16 1546 Signed Impressions: Service Date/Time: Thursday, November 03, 2016 16:23 - CONCLUSION: No acute cardiopulmonary disease demonstrated. Pj Armando MD PE at Discharge GENERAL: Well-nourished, well-developed obese elderly CF patient. Appears fatigued. SKIN: Warm and dry. HEAD: Normocephalic. EYES: No scleral icterus. No injection or drainage. NECK: Supple, trachea midline. No JVD or lymphadenopathy. CARDIOVASCULAR: Regular rate and rhythm without murmurs, gallops, or rubs. RESPIRATORY: Breath sounds equal bilaterally with exp wheeze anteriorly. No accessory muscle use. GASTROINTESTINAL: Abdomen soft, non-tender, nondistended. EXTREMITIES: No cyanosis, or edema. NEUROLOGICAL: awake, alert, cognitively sharp. Pt update on day of discharge Breathing well. C/o headache and constipation which is a chronic problem for her. Hospital Course Mrs. Zepeda was admitted to the hospital and treated with IV Solu-Medrol, bronchodilators. The patient made clinical progress and ambulated well today with physical therapy. She is on oxygen at home only at night but is requiring this 24 7 currently. While hospitalized she appeared depressed and her family voiced concerns about this. Patient endorses depression and insomnia and would like to try Remeron which will be prescribed to her. She is to follow-up with her primary care physician Dr. Ellis within 1 week. The patient is advised to wear her oxygen 24 7 at this time. She's been divided prescriptions for prednisone, nebulizer machine and Ventolin inhaler. Pt Condition on Discharge: Stable Discharge Disposition: Disch w/ Home Health Serv Discharge Time: > 30 minutes Discharge Instructions DIET: Follow Instructions for: Heart Healthy Diet Activities you can perform: Regular-No Restrictions New Medications: Albuterol 18 GM Inh (Ventolin Hfa 18 GM Inh) 90 Mcg/Act Aer 2 PUFF INH Q4H PRN SHORTNESS OF BREATH #1 Ref 0 INHALER Azithromycin (Azithromycin) 500 Mg Tab 500 MG PO DAILY Infection #2 Ref 0 TAB Ipratropium-Albuterol Neb (Duoneb) 0.5-2.5 Mg/3 Ml Neb 1 NEBULE INH Q4HR NEB Breathing Treatment #180 Ref 0 NEBULE Mirtazapine (Remeron) 15 Mg Tab 15 MG PO HS Depression Control #30 Ref 0 TAB Nebulizer (Nebulizer) 1 Mis Mis 1 EA .ROUTE DIRECTED Breathing Treatment #1 Ref 0 EA Prednisone (Prednisone) 20 Mg Tab 20 MG PO DIRECTED 40 MG twice a day x 3 days, then 20 MG daily x 3 days, then 10 MG daily x 3 days Inflammation #11 Ref 0 TAB Polyethylene Glycol 3350 Powder (Polyethylene Glycol 3350 Powder) 17 Gm Pow 17 GM PO DAILY constipation #1 BOTTLE Continued Medications: Albuterol 8.5 GM Inh (Proair Hfa 8.5 GM Inh) 90 Mcg/Act Aer 2 PUFF INH Q6H 108 mcg/actuation PRN SHORTNESS OF BREATH #1 Ref 0 INHALER Aspirin (Aspirin) 81 Mg Tabdr 81 MG PO DAILY TAB Atorvastatin (Atorvastatin) 10 Mg Tab 10 MG PO HS Cholesterol Management #30 Ref 0 TAB Cholecalciferol (Vitamin D) 1,000 Unit Tab 1000 UNITS PO DAILY Nutritional Supplement #1 Ref 0 BOTTLE Cyanocobalamin (Vitamin B-12) 500 Mcg Tab 500 MCG PO DAILY Nutritional Supplement #1 Ref 0 BOTTLE Docusate Sodium (Stool Softener) 100 Mg Cap 100 MG PO BID Enalapril (Enalapril) 20 Mg Tab 20 MG PO BID #30 Ref 0 TAB Ferrous Sulfate (Iron) 50 Mg Tab 65 MG PO DAILY Nutritional Supplement Ref 0 TAB Fish Oil-Cholecalciferol (Fish Oil + D3) 1,200-1,000 Mg-Unit Cap 1 CAP PO BID Nutritional Supplement #30 Ref 0 CAP Gabapentin (Gabapentin) 100 Mg Cap 100 MG PO TID #90 Ref 0 CAP Hydrochlorothiazide (Hydrochlorothiazide) 12.5 Mg Cap 12.5 MG PO DAILY #30 Ref 0 CAP Latanoprost Opth Drops (Latanoprost Opth Drops) 0.005% Drops 1 DROP EACH EYE HS Refrigerate until opened. Glaucoma #2.5 Ref 0 ML Levothyroxine (Levothyroxine) 88 Mcg Tab 88 MCG PO DAILY Thyroid #30 Ref 0 TAB Magnesium Oxide (Magnesium Oxide) 500 Mg Tab 500 MG PO BID Ref 0 TAB Metoprolol Tartrate (Metoprolol Tartrate) 50 Mg Tab 50 MG PO BID #60 Ref 0 TAB Multiple Vitamins W/ Minerals (Multivitamin Adults) 1 Tab 1 TAB PO DAILY Nutritional Supplement Ref 0 TAB Tiotropium Inh (Spiriva Handihaler) 18 Mcg Cap 18 MCG INH DAILY 1 capsule = 18 mcg COPD #30 Ref 0 CAP Luh Banks MD Nov 06, 2016 11:54
[2016-11-06] MEDS ORDERED: POLY17S PO (11:55)
[2016-11-06] MEDS ORDERED: ACETAMIN 325 MG/BUTALBITAL 50 MG/CAFFEINE 40 MG TAB PO ONE (12:00)
[2016-11-06] MEDS: ONDANSETRON HCL 4 MG/2 ML VIAL IV PUSH PRN (12:45)
[2016-11-06] MEDS: AZITHROMYCIN INJ 500 MG in SODIUM CHLOR 0.9% 250 ML INJ 250 ML IV SCH (17:07)
== END 2016-11-06 18:25 | disposition home health service (06) | DRG 191 ==
LOC: PHED 15:35 → PHEDA 17:15 → PHEDH 20:38 → PH3B 11-04 07:54 → OBSVTOIN 11-04 16:22
PROVIDERS: ADMIT Family Medicine; ATTEND Family Medicine
PROC: 3E0F7GC Introduction of Other Therapeutic Substance into Respiratory Tract, Via Natural or Artificial Opening (ICD-10-PCS; principal; 2016-11-04)
DX: J44.1 Chronic obstructive pulmonary disease with (acute) exacerbation (principal); J96.10 Chronic respiratory failure, unspecified whether with hypoxia or hypercapnia; Z99.81 Dependence on supplemental oxygen; E11.9 Type 2 diabetes mellitus without complications; I10 Essential (primary) hypertension; D72.829 Elevated white blood cell count, unspecified; E03.9 Hypothyroidism, unspecified; E78.00 Pure hypercholesterolemia, unspecified; M19.90 Unspecified osteoarthritis, unspecified site; G47.30 Sleep apnea, unspecified; K21.9 Gastro-esophageal reflux disease without esophagitis; E78.5 Hyperlipidemia, unspecified; K59.00 Constipation, unspecified; M54.9 Dorsalgia, unspecified; Z87.891 Personal history of nicotine dependence; F32.9 Major depressive disorder, single episode, unspecified; G47.00 Insomnia, unspecified
CPT/HCPCS: 71010; 80048; 80053; 81001; 82550; 82948; 83605; 83880; 84484; 85007; 85025; 85027; 85610; 85730; 87040; 87070; 87205; 87804; 94640; 94664; 96374; G0378; G8987-GP; G8988-GP; J0456; J1644; J1815; J2405; J2930; J3475; J7050; J7613

== ENCOUNTER 2018-07-14 12:29 | Inpatient (IN) ==
[2018-07-14] MEDS ORDERED: MethylPREDNISolone Sod Succinate Inj 125 MG/2 ML Vial IV.PUSH ONE (13:56)
[2018-07-14] MEDS ORDERED: Sod Chloride 0.9% Inj 1,000 ML IV.CONT SCH (14:15)
[2018-07-14] MEDS ORDERED: Azithromycin 250 MG Tablet PO ONE (14:15)
--- NOTE | 2018-07-14 14:40 | XR ---
EXAM DATE: 07/14/2018 2:37 PM EDT AGE/SEX: 83 years / Female INDICATIONS: Shortness of breath, chest pain, and weakness. CLINICAL DATA: This is the patient's initial encounter. Patient reports that signs and symptoms have been present for 3 days and indicates a pain score of 3/10. MEDICAL/SURGICAL HISTORY: Chronic obstructive pulmonary disease. None. COMPARISON: [facility], CHEST SINGLE AP, 11/03/2016. . FINDINGS: Lungs are hyperinflated. Emphysematous changes are noted throughout. There is no evidence of acute ai rspace disease, mass densities or effusions. Heart is within normal limits in size. Osseous structures are intact. CONCLUSION: COPD Otherwise stable chest without evidence of acute process. Electronically signed by: Kody Crawford MD 07/14/2018 2:38 PM EDT
--- NOTE | 2018-07-14 14:53 | ED ---
HPI General Chief Complaint: Respiratory Symptoms Stated Complaint: Caugh x 1 week History of Present Illness 83-year-old female with a past medical history COPD, diabetes, coronary artery disease presents to the emergency room with one-week history of persistent cough , productive sputum, fever, chills, generalized weakness, pleuritic chest pain and increased use of nebulizer due to shortness of breath and wheezing. She denies seeing a primary care physician for this episode or receiving steroids or antibiotics in the last week. Patient denies any nausea, vomiting, chills, diarrhea, skin rash or recent falls. Related Data Home Medications Medication Instructions Recorded Confirmed acetaminophen 325 mg PO Q6H PRN 07/14/18 07/14/18 aspirin [Aspir-81] 07/14/18 atorvastatin 10 mg PO DAILY 07/14/18 07/14/18 calcium carbonate [Calcium 500] 1,000 mg PO DAILY 07/14/18 07/14/18 cholecalciferol (vitamin D3) 07/14/18 [Vitamin D3] cyanocobalamin (vitamin B-12) 500 mcg PO DAILY 07/14/18 07/14/18 [Vitamin B-12] docusate sodium [Stool Softener] 50 mg PO DAILY 07/14/18 07/14/18 enalapril maleate 20 mg PO BID 07/14/18 07/14/18 ferrous sulfate, dried [iron] 65 mg PO DAILY 07/14/18 07/14/18 gabapentin 300 mg PO TID 07/14/18 07/14/18 lactobacillus combination no.4 3,000 mmu cells PO DAILY 07/14/18 07/14/18 [Probiotic] latanoprost 1 drp OPHTHALMIC (EYE) QPM 07/14/18 07/14/18 levothyroxine 88 mcg PO DAILY 07/14/18 07/14/18 magnesium 600 mg PO BID 07/14/18 07/14/18 metoprolol tartrate 50 mg PO BID 07/14/18 07/14/18 multivitamin 1 cap PO QAM 07/14/18 07/14/18 omega 9-lnf-hcb-fish oil [Fish Oil] 07/14/18 polyethylene glycol 3350 [Miralax] 17 g PO DAILY PRN 07/14/18 07/14/18 psyllium seed (with dextrose) 1.7 g PO DAILY 07/14/18 07/14/18 [fiber] Allergies Allergy/AdvReac Type Severity Reaction Status Date / Time Cephalosporins Allergy Intermediate Rash Verified 07/14/18 14:20 penicillin G Allergy Intermediate Rash Verified 07/14/18 13:18 Review of Systems Constitutional Reports chills and Reports weakness Eyes Denies change in vision ENT Denies headache(s) and Denies nasal congestion Cardiovascular Denies chest pain Respiratory Reports change in phlegm color, Reports cough, Reports pain with cough, Reports dyspnea and Reports dyspnea on exertion Gastrointestinal Denies abdominal pain Genitourinary Denies difficulty voiding Musculoskeletal Denies myalgias Integumentary/Breasts Denies rash Neurologic Denies headache(s) Psychiatric Denies depression Endocrine Denies polyuria Hematologic/Lymphatic Denies easy bruising PMFSH Medical History Medical History Back pain (Acute) COPD (chronic obstructive pulmonary disease) (Acute) Diabetes mellitus (Acute) High cholesterol (Acute) Hypertension (Acute) Social History Social History Substance History: No History of Abuse Second Hand Smoke Exposure: No Smoking Status: Never smoker How Often Do You Have a Drink Containing Alcohol: Never Recent Travel in [facility] within the Last 8 Weeks: No Recent Out of Country Travel within the Last 8 Weeks: No Immunization History Tetanus Immunization: Unsure Hx Influenza Vaccine This Season: Yes Exam Narrative Exam Narrative: GENERAL: Patient is alert and oriented -3 SKIN: Focused skin assessment warm/dry. HEAD: Atraumatic. Normocephalic. EYES: Pupils equal and round. No scleral icterus. No injection or drainage. ENT: No nasal bleeding or discharge. Mucous membranes pink and moist. NECK: Trachea midline. No JVD. CARDIOVASCULAR: Regular rate and rhythm. No murmur appreciated. RESPIRATORY: No accessory muscle use. Decreased air entry bilaterally with scattered rhonchi and bibasilar rales. GASTROINTESTINAL: Abdomen soft, non-tender, nondistended. Hepatic and splenic margins not palpable. MUSCULOSKELETAL: No obvious deformities. No clubbing. No cyanosis. No edema. NEUROLOGICAL: Awake and alert. No obvious cranial nerve deficits. Motor grossly within normal limits. Normal speech. PSYCHIATRIC: Appropriate mood and affect; insight and judgment normal. Course Reevaluation(s) Reevaluation #1: Patient condition improved during the ER course. Improved lung aeration was decreased rhonchi and decreased work of breathing. I personally reexamined and counseled the patient about her diagnosis and results. Time: 17:00 Initial Documented Vital Signs Temperature 97.6 F 07/14/18 13:14 Pulse Rate 62 07/14/18 13:14 Blood Pressure 131/82 07/14/18 13:14 Pulse Oximetry 95 07/14/18 13:14 Last Documented Vital Signs Temperature 97.6 F 07/14/18 13:14 Pulse Rate 68 07/14/18 16:55 Respiratory Rate 16 07/14/18 16:55 Blood Pressure 162/87 H 07/14/18 16:55 Pulse Oximetry 95 07/14/18 16:55 Medical Decision Making MDM Narrative Medical Screen Exam Complete: Yes Emergency Medical Condition: Yes Lab Data Result diagrams: 07/14/18 14:29 07/14/18 14:29 Lab Results 07/14/18 07/14/18 07/14/18 Range/Units 14:29 14:29 14:31 CBC w Diff Slide review pending WBC 9.7 (4.0-11.0) th/mm3 RBC 3.73 L (4.00-5.30) mil/mm3 Hgb 12.5 (11.6-15.3) gm/dL Hct 37.2 (35.0-46.0) % MCV 99.6 (80.0-100.0) fL MCH 33.6 (27.0-34.0) pg MCHC 33.7 (32.0-36.0) % RDW 11.7 (11.6-17.2) % Plt Count 221 (150-450) th/mm3 MPV 9.0 (7.0-11.0) fL Neut % (Auto) 74.3 H (16.0-70.0) % Lymph % (Auto) 15.0 (9.0-44.0) % Dewitt % (Auto) 8.2 H (0.0-8.0) % Eos % (Auto) 1.4 (0.0-4.0) % Baso % (Auto) 1.1 (0.0-2.0) % Neut # (Auto) 7.2 (1.8-7.7) th/mm3 Lymph # (Auto) 1.5 (1.0-4.8) th/mm3 Dewitt # (Auto) 0.8 (0.0-0.9) th/mm3 Eos # (Auto) 0.1 (0.0-0.4) th/mm3 Baso # (Auto) 0.1 (0.0-0.2) th/mm3 WBC Differential Manual diff final Seg Neuts % (Manual) 66 (16-70) % Band Neuts % (Manual) 7 H (0-6) % Lymphocytes % (Manual) 14 (9-44) % Monocytes % (Manual) 10 H (0-8) % Eosinophils % (Manual) 2 (0-4) % Basophils % (Manual) 1 (0-2) % Abs Neuts (Manual) 7.1 (1.8-7.7) th/mm3 Differential Comment . Platelet Estimate Normal (Normal) Platelet Morphology Normal (Normal) RBC Morphology Normal (Normal) Sodium 132 L (136-145) meq/L Potassium 5.5 H (3.5-5.1) meq/L Chloride 93 L (98-107) meq/L Carbon Dioxide 29.1 (21.0-32.0) meq/L Anion Gap 10 (5-15) meq/L BUN 12 (7-18) mg/dL Creatinine 0.95 (0.50-1.00) mg/dL Estimated GFR 56 L (>89) mL/min Random Glucose 88 (74-106) mg/dL Lactic Acid 1.0 (0.4-2.0) mmol/L Calcium 9.7 (8.5-10.1) mg/dL Total Bilirubin 1.0 (0.2-1.0) mg/dL AST 39 H (15-37) U/L ALT 22 (10-53) U/L Alkaline Phosphatase 76 (45-117) U/L Total Protein 7.2 (6.4-8.2) g/dL Albumin 3.5 (3.4-5.0) g/dL Imaging Data Radiologist's impression: Chest X-Ray 07/14/18 13:56 CONCLUSION: COPD Otherwise stable chest without evidence of acute process. Discharge Plan Discharge Disposition Patient Disposition: Transfer to [facility] Discharge Condition Condition: Stable Discharge Details Discharge Comment: Admission has been accepted by Dr. MURPHY as an observation to the [facility] Diagnosis: COPD exacerbation Physicians Team ED Provider: Deniz Mccray Primary Care Provider: Valentino Ellis Rxs /Orders / Referrals /Forms Prescriptions: No Action atorvastatin 10 mg Tablet 10 mg PO DAILY RF: 0 enalapril maleate 20 mg Tablet 20 mg PO BID RF: 0 cyanocobalamin (vitamin B-12) [Vitamin B-12] 1,000 mcg Tablet 500 mcg PO DAILY RF: 0 aspirin [Aspir-81] 81 mg Tablet,Delayed Release (Dr/Ec) RF: 0 metoprolol tartrate 50 mg Tablet 50 mg PO BID RF: 0 magnesium 250 mg Tablet 600 mg PO BID RF: 0 gabapentin 100 mg Capsule 300 mg PO TID RF: 0 cholecalciferol (vitamin D3) [Vitamin D3] 1,000 unit Capsule RF: 0 omega 0-ndh-tlt-fish oil [Fish Oil] 1,000 mg (120 mg-180 mg) Capsule RF: 0 levothyroxine 88 mcg Capsule 88 mcg PO DAILY RF: 0 ferrous sulfate, dried [iron] 159 mg (45 mg iron) Tablet Extended Release 65 mg PO DAILY RF: 0 latanoprost 0.005 % Drops 1 drp OPHTHALMIC (EYE) QPM RF: 0 polyethylene glycol 3350 [Miralax] 17 gram Powder In Packet 17 g PO DAILY PRN (Reason: Constipation) RF: 0 docusate sodium [Stool Softener] 50 mg Capsule 50 mg PO DAILY RF: 0 calcium carbonate [Calcium 500] 500 mg calcium (1,250 mg) Tablet 1,000 mg PO DAILY RF: 0 multivitamin Capsule 1 cap PO QAM RF: 0 psyllium seed (with dextrose) [fiber] Powder 1.7 g PO DAILY RF: 0 acetaminophen 325 mg Capsule 325 mg PO Q6H PRN (Reason: Acute Pain) RF: 0 lactobacillus combination no.4 [Probiotic] 3 billion cell Capsule 3,000 mmu cells PO DAILY RF: 0 Discharge Interventions Interventions: Vital Signs Last Done: 07/14/18 16:55 Status ED Status: With Nurse
[2018-07-14 14:54] LABS: Baso # (Auto) 0.1 th/mm3 (0.0-0.2); Baso % (Auto) 1.1 % (0.0-2.0); Eos # (Auto) 0.1 th/mm3 (0.0-0.4); Eos % (Auto) 1.4 % (0.0-4.0); Hematocrit 37.2 % (35.0-46.0); Hemoglobin 12.5 gm/dL (11.6-15.3); Lymph # (Auto) 1.5 th/mm3 (1.0-4.8); Mean Corpuscular HGB Conc 33.7 % (32.0-36.0); Mean Corpuscular Hemoglobin 33.6 pg (27.0-34.0); Mean Corpuscular Volume 99.6 fL (80.0-100.0); Mono # (Auto) 0.8 th/mm3 (0.0-0.9); Mono % (Auto) 8.2 % (0.0-8.0); Neut # (Auto) 7.2 th/mm3 (1.8-7.7); Neut % (Auto) 74.3 % (16.0-70.0); Platelet Count 221 th/mm3 (150-450); Red Blood Count 3.73 mil/mm3 (4.00-5.30); Red Cell Distribution Width 11.7 % (11.6-17.2); White Blood Count 9.7 th/mm3 (4.0-11.0)
[2018-07-14 15:06] LABS: Chloride 93 meq/L (98-107); Sodium 132 meq/L (136-145)
[2018-07-14 15:07] LABS: Potassium 5.5 meq/L (3.5-5.1)
[2018-07-14 15:10] LABS: Calcium 9.7 mg/dL (8.5-10.1)
[2018-07-14 15:11] LABS: Albumin 3.5 g/dL (3.4-5.0); Anion Gap 10 meq/L (5-15); Blood Urea Nitrogen 12 mg/dL (7-18); Carbon Dioxide 29.1 meq/L (21.0-32.0); Glucose,Random 88 mg/dL (74-106)
[2018-07-14 15:14] LABS: Alanine Aminotransferase 22 U/L (10-53); Aspartate Aminotransferase 39 U/L (15-37); Glomerular Filtration Rate 56 mL/min (>89)
[2018-07-14 15:16] LABS: Total Protein 7.2 g/dL (6.4-8.2)
[2018-07-14 15:17] LABS: Alkaline Phosphatase 76 U/L (45-117)
[2018-07-14 15:18] LABS: Eosinophils 2 % (0-4); Lymphocytes 14 % (9-44); Monocytes 10 % (0-8)
[2018-07-14 15:19] LABS: Platelet Estimate Normal (Normal); Platelet Morphology Normal (Normal); RBC Morphology Normal (Normal)
[2018-07-14] MEDS ORDERED: Dextrose 5%/NaCl 0.9% Inj 1,000 ML IV.CONT SCH (17:45)
--- NOTE | 2018-07-14 17:57 | P.HPIM ---
History of Present Illness Primary Care Physician: Valentino Ellis MD Chief Complaint: Cough History of Present Illness: The patient is an 83-year-old female with a past medical history of COPD on home oxygen who is presenting to the hospital with cough and phlegm production. The patient states that over a week ago she developed a cough productive of yellow phlegm. She says she has not been eating much over the past few days. She has a generalized sensation of weakness throughout her body. She says she normally ambulates with a cane but she also has a walker. She denies any recent sick contacts or any recent travel. She says she is on home oxygen at night but she has been told to use it whenever she needs it. She denies any chest pain. She denies any dysuria but does endorse constipation. She has not noticed any fevers. Inpatient Certification: I certify that the inpatient services were ordered in accordance with Medicare regulations governing the order. This includes certification that hospital inpatient services are reasonable and necessary and in the case of services not specified as inpatient-only under 42 CFR 419.22(n), that they are appropriately provided as inpatient services in accordance to with the 2-midnight benchmark under 43 CFR 412.3(e) Estimated Total Length of Stay (Days): 2 Plans for Post Hospital Care: Not yet determined Review of Systems All other systems reviewed negative except as stated in HPI [facility] - History History Provided By: Patient, Family Member - Medical History Medical History: Medical History (Last Updated 07/14/18 @ 17:51 by Mahendra Hogdes DO) Aortic valve regurgitation Back pain COPD (chronic obstructive pulmonary disease) Colitis Diabetes mellitus High cholesterol Hypertension Hypothyroidism - Family History Family History: Family History (Last Updated 07/14/18 @ 17:52 by Mahendra Hodges DO) Other CAD (coronary artery disease) Epilepsy - Social History I have reviewed the patient's Social History: Yes - Tobacco History Second Hand Smoke Exposure: No Tobacco Use In Past 30 Days: No Smoking Status: Former smoker - Alcohol History How Often Do You Have a Drink Containing Alcohol: Never - Substance Use History Substance History: No History of Abuse - Travel History Recent Travel in the [place] Within the Last 8 Weeks: No Recent Travel Out of the Country Within the Last 8 Weeks: No - Immunization History Tetanus Immunization: Unsure Hx Influenza Vaccine This Season: Yes Medications and Allergies Active Medications: Active Medications Albuterol (Duoneb Neb (Sharif)) 1 ampul NEB Q6HR WHILE AWAKE NEB SHARIF Albuterol (Duoneb Neb (Prn)) 1 ampul NEB Q2HR NEB PRN PRN Reason: DYSPNEA Aspirin (Ecotrin) 81 mg PO DAILY [facility] Atorvastatin Calcium (Lipitor) 10 mg PO DAILY [facility] Cyanocobalamin (Vitamin B12) 500 mcg PO DAILY [facility] Gabapentin (Neurontin) 300 mg PO TID [facility] Dextrose/Sodium Chloride (D5w/Normal Saline Inj) 1,000 mls @ 100 mls/hr IV.CONT .Q10H SHARIF Stop: 07/15/18 03:44 Levofloxacin/Dextrose (Levaquin 750 Mg Premix Inj) 150 mls @ 100 mls/hr IV.SIG Q24H [facility] Latanoprost (Xalatan 0.005% Opth Drops) 1 drop EACH EYE QPM [facility] Levothyroxine Sodium (Synthroid) 88 mcg PO DAILY@0600 [facility] Magnesium Oxide (Mag-Ox) 400 mg PO BID [facility] Methylprednisolone Sodium Succinate (Solumedrol Inj) 40 mg IV.PUSH Q8HR [facility] Metoprolol Tartrate (Lopressor) 50 mg PO BID [facility] Allergies Allergy/AdvReac Type Severity Reaction Status Date / Time Cephalosporins Allergy Intermediate Rash Verified 07/14/18 14:20 penicillin G Allergy Intermediate Rash Verified 07/14/18 13:18 Home Medications Medication Instructions Recorded Confirmed Type acetaminophen 325 mg PO Q6H PRN 07/14/18 07/14/18 History aspirin [Aspir-81] 07/14/18 History atorvastatin 10 mg PO DAILY 07/14/18 07/14/18 History calcium carbonate [Calcium 500] 1,000 mg PO DAILY 07/14/18 07/14/18 History cholecalciferol (vitamin D3) 07/14/18 History [Vitamin D3] cyanocobalamin (vitamin B-12) 500 mcg PO DAILY 07/14/18 07/14/18 History [Vitamin B-12] docusate sodium [Stool Softener] 50 mg PO DAILY 07/14/18 07/14/18 History enalapril maleate 20 mg PO BID 07/14/18 07/14/18 History ferrous sulfate, dried [iron] 65 mg PO DAILY 07/14/18 07/14/18 History gabapentin 300 mg PO TID 07/14/18 07/14/18 History lactobacillus combination no.4 3,000 mmu cells PO DAILY 07/14/18 07/14/18 History [Probiotic] latanoprost 1 drp OPHTHALMIC (EYE) QPM 07/14/18 07/14/18 History levothyroxine 88 mcg PO DAILY 07/14/18 07/14/18 History magnesium 600 mg PO BID 07/14/18 07/14/18 History metoprolol tartrate 50 mg PO BID 07/14/18 07/14/18 History multivitamin 1 cap PO QAM 07/14/18 07/14/18 History omega 6-fwd-xys-fish oil [Fish Oil] 07/14/18 History polyethylene glycol 3350 [Miralax] 17 g PO DAILY PRN 07/14/18 07/14/18 History psyllium seed (with dextrose) 1.7 g PO DAILY 07/14/18 07/14/18 History [fiber] Exam Vital signs: Vital Signs 07/14/18 13:14 07/14/18 13:29 07/14/18 15:02 Temperature 97.6 F Pulse Rate 62 64 59 L Respiratory Rate 20 20 Blood Pressure 131/82 152/76 H Pulse Oximetry 95 100 07/14/18 15:37 07/14/18 16:55 Temperature Pulse Rate 65 68 Respiratory Rate 16 16 Blood Pressure 158/82 H 162/87 H Pulse Oximetry 95 95 Intake & Output 07/13/18 07/14/18 07/14/18 18:59 06:59 18:59 Weight 70.2 kg Narrative: GENERAL: No distress. SKIN: Focused skin assessment warm/dry. HEAD: Atraumatic. Normocephalic. EYES: Pupils equal and round. No scleral icterus. No injection or drainage. ENT: No nasal bleeding or discharge. Mucous membranes pink and moist. NECK: Trachea midline. No JVD. CARDIOVASCULAR: Regular rate and rhythm. No murmur appreciated. RESPIRATORY: Diffuse wheezing and rhonchi. GASTROINTESTINAL: Abdomen soft, non-tender, nondistended. Hepatic and splenic margins not palpable. MUSCULOSKELETAL: No obvious deformities. No clubbing. No cyanosis. 1+ edema. NEUROLOGICAL: Awake and alert. No obvious cranial nerve deficits. Motor grossly within normal limits. Normal speech. Results - Labs CBC & Chem 7: 07/14/18 14:29 07/14/18 14:29 Labs: Short CBC 07/14/18 Range/Units 14:29 WBC 9.7 (4.0-11.0) th/mm3 Hgb 12.5 (11.6-15.3) gm/dL Hct 37.2 (35.0-46.0) % Plt Count 221 (150-450) th/mm3 BMP 07/14/18 14:29 Sodium 132 L Potassium 5.5 H Chloride 93 L Carbon Dioxide 29.1 BUN 12 Creatinine 0.95 Calcium 9.7 Liver Function 07/14/18 Range/Units 14:29 Total Bilirubin 1.0 (0.2-1.0) mg/dL AST 39 H (15-37) U/L ALT 22 (10-53) U/L Alkaline Phosphatase 76 (45-117) U/L Albumin 3.5 (3.4-5.0) g/dL - Imaging Impressions Chest X-Ray 07/14/18 13:56 CONCLUSION: COPD Otherwise stable chest without evidence of acute process. Caprini VTE Risk Assessment Caprini VTE Risk Assessment: Moderate/High Risk (score >= 2) Caprini Risk Assessment Model: Point Value = 1 Point Value = 2 Point Value = 3 Point Value = 5 Age 41-60 Minor surgery BMI > 25 kg/m2 Swollen legs Varicose veins or History of unexplained or recurrent spontaneous Oral contraceptives or hormone replacement Sepsis (< 1 month) Serious lung disease, including pneumonia (< 1 month) Abnormal pulmonary function Acute myocardial infarction Congestive heart failure (< 1 month) History of inflammatory bowel disease Medical patient at bed rest Age 61-74 Arthroscopic surgery Major open surgery (> 45 min) Laparoscopic surgery (> 45 min) Malignancy Confined to bed (> 72 hours) Immobilizing plaster cast Central venous access Age >= 75 History of VTE Family history of VTE Factor V Leiden Prothrombin [id number] Lupus anticoagulant Anticardiolipin antibodies Elevated serum homocysteine Heparin-induced thrombocytopenia Other congenital or acquired thrombophilia Stroke (< 1 month) Elective arthroplasty Hip, pelvis, or leg fracture Acute spinal cord injury (< 1 month) Prophylaxis Regimen: Total Risk Factor Score Risk Level Prophylaxis Regimen 0-1 Low Early ambulation 2 Moderate Order ONE of the following: *Sequential Compression Device (SCD) *Heparin 5000 units SQ BID 3-4 Higher Order ONE of the following medications: *Heparin 5000 units SQ TID *Enoxaparin/Lovenox 40 mg SQ daily (WT < 150 kg, CrCl > 30 mL/min) *Enoxaparin/Lovenox 30 mg SQ daily (WT < 150 kg, CrCl > 10-29 mL/min) *Enoxaparin/Lovenox 30 mg SQ BID (WT < 150 kg, CrCl > 30 mL/min) AND/OR *Sequential Compression Device (SCD) 5 or more Highest Order ONE of the following medications: *Heparin 5000 units SQ TID (Preferred with Epidurals) *Enoxaparin/Lovenox 40 mg SQ daily (WT < 150 kg, CrCl > 30 mL/min) *Enoxaparin/Lovenox 30 mg SQ daily (WT < 150 kg, CrCl > 10-29 mL/min) *Enoxaparin/Lovenox 30 mg SQ BID (WT < 150 kg, CrCl > 30 mL/min) AND *Sequential Compression Device (SCD) Assessment and Plan - Plan Acute COPD exacerbation On home oxygen at night. CXR unremarkable. Diffuse wheezing on exam. -IV Solumedrol and Levaquin. -standing and as needed nebs. -incentive spirometry. -oxygen as needed. -encourage ambulation. -sputum and blood cultures. Hyperkalemia Potassium level 5.5. -telemetry. -check EKG. -Kayexalate 15 g po x 1. Weakness Likely s/t respiratory status. -PT eval. -IVFs. -treatment as above. HTN Blood pressure has been elevated. -resume home meds. -clonidine as needed. PPx: Lovenox
[2018-07-14] MEDS ORDERED: Sodium Polystyrene Sulfonate/Sorbitol Liq 15 GM/60 ML UDC PO ONE (18:00)
[2018-07-14] MEDS: Gabapentin 300 MG Capsule PO SCH (18:10)
[2018-07-14] MEDS: Enoxaparin Inj 30 MG/0.3 ML Syringe SQ SCH (18:15)
[2018-07-14] MEDS: Magnesium Oxide 400 MG Tablet PO SCH (21:43)
[2018-07-14] MEDS: Metoprolol Tartrate 50 MG Tablet PO SCH (21:43)
[2018-07-14] MEDS: Latanoprost 0.005% Opth Drops 2.5 ML Bottle EACH EYE SCH (21:43)
[2018-07-14] MEDS: MethylPREDNISolone Sod Succinate Inj 40 MG/ML Vial IV.PUSH SCH (21:43)
[2018-07-14] MEDS: Senna/Docusate Sodium 8.6/50 MG Tablet PO SCH (21:43)
[2018-07-14] MEDS ORDERED: Dextrose 50% in Water 50 ML Vial IV.PUSH PRN (23:21)
[2018-07-15] MEDS: Levothyroxine 88 MCG Tablet PO SCH ×2 (04:44→05:03)
[2018-07-15] MEDS: MethylPREDNISolone Sod Succinate Inj 40 MG/ML Vial IV.PUSH SCH ×4 (04:44→21:17)
[2018-07-15 06:38] LABS: Hemoglobin 12.1 gm/dL (11.6-15.3); Mean Corpuscular HGB Conc 32.8 % (32.0-36.0); Mean Corpuscular Hemoglobin 32.8 pg (27.0-34.0); Mean Platelet Volume 8.6 fL (7.0-11.0); Platelet Count 218 th/mm3 (150-450); Red Cell Distribution Width 11.6 % (11.6-17.2); White Blood Count 11.2 th/mm3 (4.0-11.0)
[2018-07-15 07:11] LABS: Calcium 8.9 mg/dL (8.5-10.1); Carbon Dioxide 27.1 meq/L (21.0-32.0); Magnesium 1.6 mg/dL (1.5-2.5); Phosphorus 2.6 mg/dL (2.5-4.9); Potassium 3.5 meq/L (3.5-5.1)
[2018-07-15] MEDS: Senna/Docusate Sodium 8.6/50 MG Tablet PO SCH ×2 (08:51→20:40)
[2018-07-15] MEDS: Gabapentin 300 MG Capsule PO SCH ×3 (08:51→18:14)
[2018-07-15] MEDS: Metoprolol Tartrate 50 MG Tablet PO SCH ×2 (08:51→20:40)
[2018-07-15] MEDS: Calcium Carbonate 500 MG Tablet PO SCH (08:52)
[2018-07-15] MEDS: Magnesium Oxide 400 MG Tablet PO SCH ×2 (08:52→20:41)
[2018-07-15] MEDS: Insulin NovoLOG Aspart Correctional Sugar Inj SQ SCH ×4 (08:52→20:58)
--- NOTE | 2018-07-15 11:53 | ECG ---
Date Performed: 07/14/2018 Time Performed: 15:37:34 PTAGE: 83 years EKG: Sinus rhythm MINIMAL ST DEPRESSION BORDERLINE ECG PREVIOUS TRACING : 06/16/2014 00.20 DOCTOR: Sudeep Paredes Interpretating Date/Time 07/15/2018 11:50:18
--- NOTE | 2018-07-15 13:23 | P.PNIM ---
Subjective Interval history: The patient was sitting up in a chair. She said she was ready to get back to bed. She said she worked with physical therapy. She said she feels a bit better. She had a bowel movement. Tolerating a diet. Physical Exam Vital signs: Vital Signs 07/14/18 13:29 07/14/18 15:02 07/14/18 15:37 Temperature Pulse Rate 64 59 L 65 Respiratory Rate 20 20 16 Blood Pressure 152/76 H 158/82 H Pulse Oximetry 100 95 07/14/18 16:55 07/14/18 17:55 07/14/18 20:00 Temperature 96.2 F L Pulse Rate 68 69 75 Respiratory Rate 16 16 18 Blood Pressure 162/87 H 165/78 H 141/67 H Pulse Oximetry 95 95 97 07/15/18 00:00 07/15/18 04:00 07/15/18 07:15 Temperature 96.4 F L 96.6 F L Pulse Rate 71 66 63 Respiratory Rate 18 18 18 Blood Pressure 183/90 H 182/83 H Pulse Oximetry 95 93 L 95 07/15/18 08:00 Temperature 95.6 F L Pulse Rate 77 Respiratory Rate 20 Blood Pressure 189/85 H Pulse Oximetry 90 L Intake & Output 07/14/18 07/15/18 07/15/18 18:59 06:59 18:59 Intake Total 400 / 400 1390 / 1390 Output Total 600 / 600 250 / 250 Balance -200 / -200 1140 / 1140 Weight 70.2 kg 71.6 kg Intake: IV 400 / 400 1150 / 1150 D5W/Normal Saline Inj 1,000 ML 1000 / 1000 @ 100 mls/hr IV.CONT .Q10H [facility] Rx#:[id number] NS Inj 1,000 ML @ 250 mls/hr IV 400 / 400 .CONT .Q4H [facility] Rx#:[id number] Levaquin 750 mg Premix Inj 150 150 / 150 ML @ 100 mls/hr IV.SIG Q24H [facility] Rx#:[id number] Oral 240 / 240 Output: Urine 600 / 600 250 / 250 Other: # Voids 1 Weight On Admission 71.7 kg Narrative: GENERAL: No distress. SKIN: Focused skin assessment warm/dry. HEAD: Atraumatic. Normocephalic. EYES: Pupils equal and round. No scleral icterus. No injection or drainage. ENT: No nasal bleeding or discharge. Mucous membranes pink and moist. NECK: Trachea midline. No JVD. CARDIOVASCULAR: Regular rate and rhythm. No murmur appreciated. RESPIRATORY: Diffuse wheezing and rhonchi, improved. GASTROINTESTINAL: Abdomen soft, non-tender, nondistended. Hepatic and splenic margins not palpable. MUSCULOSKELETAL: No obvious deformities. No clubbing. No cyanosis. 1+ edema. NEUROLOGICAL: Awake and alert. No obvious cranial nerve deficits. Motor grossly within normal limits. Normal speech. Results - Labs CBC & Chem 7: 07/15/18 04:45 07/15/18 04:45 Laboratory Results - last 24 hr 07/14/18 07/14/18 07/14/18 14:29 14:29 14:31 CBC w Diff Slide review pending WBC 9.7 RBC 3.73 L Hgb 12.5 Hct 37.2 MCV 99.6 MCH 33.6 MCHC 33.7 RDW 11.7 Plt Count 221 MPV 9.0 Neut % (Auto) 74.3 H Lymph % (Auto) 15.0 [place] % (Auto) 8.2 H Eos % (Auto) 1.4 Baso % (Auto) 1.1 Neut # (Auto) 7.2 Lymph # (Auto) 1.5 [place] # (Auto) 0.8 Eos # (Auto) 0.1 Baso # (Auto) 0.1 WBC Differential Manual diff final Seg Neuts % (Manual) 66 Band Neuts % (Manual) 7 H Lymphocytes % (Manual) 14 Monocytes % (Manual) 10 H Eosinophils % (Manual) 2 Basophils % (Manual) 1 Abs Neuts (Manual) 7.1 Differential Comment . Platelet Estimate Normal Platelet Morphology Normal RBC Morphology Normal Sodium 132 L Potassium 5.5 H Chloride 93 L Carbon Dioxide 29.1 Anion Gap 10 BUN 12 Creatinine 0.95 Estimated GFR 56 L POC Glucose Random Glucose 88 Lactic Acid 1.0 Calcium 9.7 Phosphorus Magnesium Total Bilirubin 1.0 AST 39 H ALT 22 Alkaline Phosphatase 76 Total Protein 7.2 Albumin 3.5 07/15/18 07/15/18 07/15/18 00:02 04:45 04:45 CBC w Diff WBC 11.2 H RBC 3.70 L Hgb 12.1 Hct 37.0 MCV 100.0 MCH 32.8 MCHC 32.8 RDW 11.6 Plt Count 218 MPV 8.6 Neut % (Auto) Lymph % (Auto) [place] % (Auto) Eos % (Auto) Baso % (Auto) Neut # (Auto) Lymph # (Auto) [place] # (Auto) Eos # (Auto) Baso # (Auto) WBC Differential Seg Neuts % (Manual) Band Neuts % (Manual) Lymphocytes % (Manual) Monocytes % (Manual) Eosinophils % (Manual) Basophils % (Manual) Abs Neuts (Manual) Differential Comment Platelet Estimate Platelet Morphology RBC Morphology Sodium 133 L Potassium 3.5 D Chloride 95 L Carbon Dioxide 27.1 Anion Gap 11 BUN 16 Creatinine 0.84 Estimated GFR 65 L POC Glucose 190 H Random Glucose 203 H D Lactic Acid Calcium 8.9 D Phosphorus 2.6 Magnesium 1.6 Total Bilirubin AST ALT Alkaline Phosphatase Total Protein Albumin 07/15/18 07/15/18 08:14 12:09 CBC w Diff WBC RBC Hgb Hct MCV MCH MCHC RDW Plt Count MPV Neut % (Auto) Lymph % (Auto) [place] % (Auto) Eos % (Auto) Baso % (Auto) Neut # (Auto) Lymph # (Auto) [place] # (Auto) Eos # (Auto) Baso # (Auto) WBC Differential Seg Neuts % (Manual) Band Neuts % (Manual) Lymphocytes % (Manual) Monocytes % (Manual) Eosinophils % (Manual) Basophils % (Manual) Abs Neuts (Manual) Differential Comment Platelet Estimate Platelet Morphology RBC Morphology Sodium Potassium Chloride Carbon Dioxide Anion Gap BUN Creatinine Estimated GFR POC Glucose 156 H 210 H Random Glucose Lactic Acid Calcium Phosphorus Magnesium Total Bilirubin AST ALT Alkaline Phosphatase Total Protein Albumin Microbiology 07/14/18 14:31 Blood - Peripheral Aerobic Blood Culture - Preliminary No growth in 1 day 07/14/18 14:31 Blood - Peripheral Anaerobic Blood Culture - Preliminary No growth in 1 day 07/14/18 14:25 Blood - Peripheral Aerobic Blood Culture - Preliminary No growth in 1 day 07/14/18 14:25 Blood - Peripheral Anaerobic Blood Culture - Preliminary No growth in 1 day 07/15/18 00:30 Sputum - Expectorated Sputum Gram Stain - Final - Imaging Impressions Chest X-Ray 07/14/18 13:56 CONCLUSION: COPD Otherwise stable chest without evidence of acute process. Assessment and Plan - Plan Acute COPD exacerbation On home oxygen at night. CXR unremarkable. Diffuse wheezing on exam. Improved. -IV Solumedrol and Levaquin. -standing and as needed nebs. -incentive spirometry. -oxygen as needed. -encourage ambulation. -sputum and blood cultures. Hyperkalemia Potassium level 5.5. Improved with Kayexalate. -telemetry. -follow BMP. Check mag and phos. Weakness Likely s/t respiratory status. -PT eval. -IVFs. -treatment as above. HTN Blood pressure has been elevated. -resume home meds. -add amlodipine 5 mg daily. -clonidine as needed. DM Diet controlled. Exacerbated by steroids. -insulin sliding scale. -would add low dose Levemir if needed. PPx: Lovenox Discharge Planning: Awaiting improvement in respiratory status. Anticipate two more days with home health care.
[2018-07-15] MEDS: amLODIPine 5 MG Tablet PO SCH (13:45)
[2018-07-15] MEDS: Enoxaparin Inj 30 MG/0.3 ML Syringe SQ SCH (18:14)
[2018-07-15] MEDS: Latanoprost 0.005% Opth Drops 2.5 ML Bottle EACH EYE SCH (18:25)
[2018-07-16] MEDS: Levothyroxine 88 MCG Tablet PO SCH (06:01)
[2018-07-16] MEDS: MethylPREDNISolone Sod Succinate Inj 40 MG/ML Vial IV.PUSH SCH ×3 (06:02→21:15)
[2018-07-16] MEDS: Insulin NovoLOG Aspart Correctional Sugar Inj SQ SCH ×4 (09:18→20:40)
[2018-07-16] MEDS: Magnesium Oxide 400 MG Tablet PO SCH ×2 (09:19→20:47)
[2018-07-16] MEDS: Senna/Docusate Sodium 8.6/50 MG Tablet PO SCH ×2 (09:19→20:47)
[2018-07-16] MEDS: amLODIPine 5 MG Tablet PO SCH (09:19)
[2018-07-16] MEDS: Metoprolol Tartrate 50 MG Tablet PO SCH ×2 (09:19→20:47)
[2018-07-16] MEDS: Calcium Carbonate 500 MG Tablet PO SCH (09:19)
[2018-07-16] MEDS: Gabapentin 300 MG Capsule PO SCH ×3 (09:19→17:27)
--- NOTE | 2018-07-16 09:29 | P.PN ---
Subjective Interval history: 83-year-old female who is seen and examined today for follow-up on chronic obstructive pulmonary disease exacerbation. Patient states still having difficulty breathing. She did work with physical therapy this morning and she feels more shaky than usual. Patient indicates that she does not feel much better than yesterday. Vital signs are stable. Patient remains afebrile. Physical Exam Vital signs: Vital Signs 07/15/18 12:00 07/15/18 13:32 07/15/18 16:00 Temperature 97.2 F L 96.7 F L Pulse Rate 65 66 62 Respiratory Rate 20 18 20 Blood Pressure 170/73 H 160/79 H Pulse Oximetry 96 94 L 07/15/18 20:00 07/16/18 00:00 07/16/18 04:00 Temperature 97.4 F L 97.1 F L 97.1 F L Pulse Rate 64 65 59 L Respiratory Rate 16 16 16 Blood Pressure 92/58 L 108/58 L 134/65 Pulse Oximetry 95 95 97 07/16/18 07:31 07/16/18 07:32 07/16/18 07:53 Temperature Pulse Rate 64 Respiratory Rate 20 Blood Pressure Pulse Oximetry 98 96 07/16/18 08:00 Temperature 97.8 F Pulse Rate 80 Respiratory Rate 19 Blood Pressure 134/63 Pulse Oximetry 96 Intake & Output 07/15/18 07/16/18 07/16/18 18:59 06:59 18:59 Intake Total 240 / 240 Output Total 300 / 300 Balance -60 / -60 Intake: Oral 240 / 240 Output: Urine 300 / 300 Narrative: GENERAL: Well-developed, well-nourished, in no acute distress. alert and orientated HEENT: Head is normocephalic without any lesions or masses noted. Facial features are symmetric. Eyes: Extraocular muscles are intact. Conjunctivae were clear. NECK: Supple without any masses. Trachea midline no deviation. No JVD, CARDIAC: Regular rhythm, regular rate. S1/S2 are heard. No murmurs gallops or rubs. LUNGS: Patient with rather impressive lung sounds with wheeze, rhonchi bilaterally. Patient able to take a deep breath due to induced coughing. No use of accessory muscles on inspiration or expiration. ABDOMEN: Soft, nontender. Nondistended. Bowel sounds heard in all 4 quadrants. No organomegaly or masses. Negative rebound, negative guarding EXTREMITIES: No edema, pulses are equal bilaterally. No cyanosis or clubbing NEUROLOGY: Mood and affect appear appropriate. Cranial nerves II through XII grossly intact. Moving all extremities, speech is clear Results - Labs CBC & Chem 7: 07/15/18 04:45 07/15/18 04:45 Laboratory Results - last 24 hr 07/15/18 07/15/18 07/15/18 12:09 16:46 20:52 POC Glucose 210 H 188 H 213 H 07/16/18 08:03 POC Glucose 194 H Microbiology 07/14/18 14:31 Blood - Peripheral Aerobic Blood Culture - Preliminary No growth in 1 day 07/14/18 14:31 Blood - Peripheral Anaerobic Blood Culture - Preliminary No growth in 1 day 07/14/18 14:25 Blood - Peripheral Aerobic Blood Culture - Preliminary No growth in 1 day 07/14/18 14:25 Blood - Peripheral Anaerobic Blood Culture - Preliminary No growth in 1 day 07/15/18 00:30 Sputum - Expectorated Sputum Gram Stain - Final Assessment and Plan - Plan Acute chronic obstructive pulmonary disease exacerbation in a patient with chronic hypoxic respiratory failure on home oxygen -Continue Solu-Medrol 40 mg IV every 8 -Continue Levaquin 750 mg daily -Duo nebs every 6 hours while awake and every 2 hours as needed -Start Mucinex 600 mg twice daily -Continue incentive spirometry -Continue O2 supplementation maintain O2 sats greater than 92% -Continue to monitor sputum culture Hyperkalemia, resolved -Potassium level 5.5. Status post Kayexalate -Continue to monitor Weakness -Continue physical therapy, patient may need home health care Hypertension -Blood pressure improved today -Home medications were continued -Amlodipine 5 mg daily was added -Clonidine as needed Diabetes -Diet controlled. Exacerbated by steroids. -Accu-Cheks with sliding scale insulin DVT prevention -Subcutaneous Lovenox
[2018-07-16] MEDS: guaiFENesin 600 MG ER Tablet PO SCH ×2 (12:27→20:47)
[2018-07-16] MEDS: Enoxaparin Inj 30 MG/0.3 ML Syringe SQ SCH (17:27)
[2018-07-16] MEDS: Latanoprost 0.005% Opth Drops 2.5 ML Bottle EACH EYE SCH (17:33)
[2018-07-17] MEDS: MethylPREDNISolone Sod Succinate Inj 40 MG/ML Vial IV.PUSH SCH ×3 (05:46→21:25)
[2018-07-17] MEDS: Acetaminophen 325 MG Tablet PO PRN ×3 (05:47→20:23)
[2018-07-17] MEDS: Levothyroxine 88 MCG Tablet PO SCH (05:47)
[2018-07-17 06:22] LABS: Baso # (Auto) 0.2 th/mm3 (0.0-0.2); Baso % (Auto) 0.8 % (0.0-2.0); Eos % (Auto) 0.1 % (0.0-4.0); Hematocrit 39.4 % (35.0-46.0); Hemoglobin 13.5 gm/dL (11.6-15.3); Lymph # (Auto) 1.8 th/mm3 (1.0-4.8); Lymph % (Auto) 8.7 % (9.0-44.0); Mean Corpuscular HGB Conc 34.3 % (32.0-36.0); Mean Corpuscular Hemoglobin 33.3 pg (27.0-34.0); Mean Corpuscular Volume 97.1 fL (80.0-100.0); Mono # (Auto) 0.5 th/mm3 (0.0-0.9); Mono % (Auto) 2.5 % (0.0-8.0); Neut % (Auto) 87.9 % (16.0-70.0); Platelet Count 317 th/mm3 (150-450); Red Blood Count 4.05 mil/mm3 (4.00-5.30); Red Cell Distribution Width 12.2 % (11.6-17.2); White Blood Count 20.5 th/mm3 (4.0-11.0)
[2018-07-17 06:45] LABS: Calcium 9.2 mg/dL (8.5-10.1); Carbon Dioxide 31.4 meq/L (21.0-32.0); Potassium 4.5 meq/L (3.5-5.1)
[2018-07-17] MEDS: Insulin NovoLOG Aspart Correctional Sugar Inj SQ SCH ×4 (08:34→20:19)
[2018-07-17] MEDS: Calcium Carbonate 500 MG Tablet PO SCH (08:37)
[2018-07-17] MEDS: Metoprolol Tartrate 50 MG Tablet PO SCH ×2 (08:37→20:15)
[2018-07-17] MEDS: Gabapentin 300 MG Capsule PO SCH ×3 (08:38→17:29)
[2018-07-17] MEDS: Magnesium Oxide 400 MG Tablet PO SCH ×2 (08:38→20:15)
[2018-07-17] MEDS: guaiFENesin 600 MG ER Tablet PO SCH ×2 (08:38→20:15)
[2018-07-17] MEDS: Senna/Docusate Sodium 8.6/50 MG Tablet PO SCH ×2 (08:40→20:15)
[2018-07-17] MEDS: amLODIPine 5 MG Tablet PO SCH (08:40)
--- NOTE | 2018-07-17 10:32 | P.PN ---
Subjective Interval history: 83-year-old female who is seen and examined today for follow-up on chronic obstructive pulmonary disease exacerbation. Patient is improving on a daily basis. She is up and walking around when I saw her today. Patient states that she still more short of breath than she usually is. Vital signs appear to be stable. Patient remains afebrile. Physical Exam Vital signs: Vital Signs 07/16/18 12:00 07/16/18 13:24 07/16/18 16:00 Temperature 98.7 F 97.9 F Pulse Rate 68 67 67 Respiratory Rate 22 20 20 Blood Pressure 144/75 H 113/57 L Pulse Oximetry 96 95 07/16/18 19:40 07/16/18 20:00 07/17/18 00:00 Temperature 97.7 F 97.3 F L Pulse Rate 69 61 68 Respiratory Rate 18 20 18 Blood Pressure 132/74 127/62 Pulse Oximetry 95 95 95 07/17/18 07:45 07/17/18 08:00 Temperature 97.8 F Pulse Rate 66 64 Respiratory Rate 16 19 Blood Pressure 170/79 H Pulse Oximetry 98 95 Intake & Output 07/16/18 07/17/18 07/17/18 18:59 06:59 18:59 Intake Total 780 / 780 270 / 270 240 / 240 Output Total 750 / 750 Balance 30 / 30 270 / 270 240 / 240 Weight 71.4 kg Intake: IV 150 / 150 Levaquin 750 mg Premix Inj 150 150 / 150 ML @ 100 mls/hr IV.SIG Q48H JABIER Rx#:[id number] Oral 780 / 780 120 / 120 240 / 240 Output: Urine 750 / 750 Other: # Voids 2 Narrative: GENERAL: Well-developed, well-nourished, in no acute distress. alert and orientated HEENT: Head is normocephalic without any lesions or masses noted. Facial features are symmetric. Eyes: Extraocular muscles are intact. Conjunctivae were clear. NECK: Supple without any masses. Trachea midline no deviation. No JVD, CARDIAC: Regular rhythm, regular rate. S1/S2 are heard. No murmurs gallops or rubs. LUNGS: Lung sounds are much improved today. There is diminished breath sounds. However no wheeze, rhonchi, rales. No use of accessory muscles on inspiration or expiration. ABDOMEN: Soft, nontender. Nondistended. Bowel sounds heard in all 4 quadrants. No organomegaly or masses. Negative rebound, negative guarding EXTREMITIES: No edema, pulses are equal bilaterally. No cyanosis or clubbing NEUROLOGY: Mood and affect appear appropriate. Cranial nerves II through XII grossly intact. Moving all extremities, speech is clear Results - Labs CBC & Chem 7: 07/17/18 05:48 07/17/18 05:48 Laboratory Results - last 24 hr 07/16/18 07/16/18 07/16/18 12:17 16:24 20:38 CBC w Diff WBC RBC Hgb Hct MCV MCH MCHC RDW Plt Count MPV Neut % (Auto) Lymph % (Auto) [place]ickson % (Auto) Eos % (Auto) Baso % (Auto) Neut # (Auto) Lymph # (Auto) [place] # (Auto) Eos # (Auto) Baso # (Auto) WBC Differential Diff Scan Differential Comment Sodium Potassium Chloride Carbon Dioxide Anion Gap BUN Creatinine Estimated GFR POC Glucose 174 H 165 H 210 H Random Glucose Calcium 07/17/18 07/17/18 07/17/18 05:48 05:48 07:40 CBC w Diff Slide review pending WBC 20.5 H RBC 4.05 Hgb 13.5 Hct 39.4 MCV 97.1 MCH 33.3 MCHC 34.3 RDW 12.2 Plt Count 317 D MPV 9.0 Neut % (Auto) 87.9 H Lymph % (Auto) 8.7 L Dickson % (Auto) 2.5 Eos % (Auto) 0.1 Baso % (Auto) 0.8 Neut # (Auto) 18.0 H Lymph # (Auto) 1.8 Dickson # (Auto) 0.5 Eos # (Auto) 0.0 Baso # (Auto) 0.2 WBC Differential . Diff Scan Auto diff confirmed Differential Comment . Sodium 132 L Potassium 4.5 Chloride 93 L Carbon Dioxide 31.4 Anion Gap 8 BUN 26 H Creatinine 1.10 H Estimated GFR 48 L POC Glucose 162 H Random Glucose 155 H Calcium 9.2 Microbiology 07/15/18 00:30 Sputum - Expectorated Sputum Gram Stain - Final 07/15/18 00:30 Sputum - Expectorated Sputum Sputum Culture - Preliminary Heavy growth normal respiratory mana at 24 hours 07/14/18 14:31 Blood - Peripheral Aerobic Blood Culture - Preliminary No growth in 2 days 07/14/18 14:31 Blood - Peripheral Anaerobic Blood Culture - Preliminary No growth in 2 days 07/14/18 14:25 Blood - Peripheral Aerobic Blood Culture - Preliminary No growth in 2 days 07/14/18 14:25 Blood - Peripheral Anaerobic Blood Culture - Preliminary No growth in 2 days Assessment and Plan - Plan Acute chronic obstructive pulmonary disease exacerbation in a patient with chronic hypoxic respiratory failure on home oxygen -Continue Solu-Medrol 40 mg IV every 8 -Continue Levaquin 750 mg daily -Duo nebs every 6 hours while awake and every 2 hours as needed -Continue Mucinex 600 mg twice daily -Continue incentive spirometry/Acapella -Continue O2 supplementation maintain O2 sats greater than 92% -Continue to monitor sputum culture Leukocytosis -Secondary to steroid use -Patient remains afebrile, patient is on empirical antibiotics -No signs of any infection at this time hyperkalemia, resolved -Potassium level 5.5. Status post Kayexalate -Continue to monitor Weakness -Continue physical therapy, patient may need home health care Hypertension -Blood pressure improved today -Home medications were continued -Amlodipine 5 mg daily was added -Clonidine as needed Diabetes -Diet controlled. Exacerbated by steroids. -Accu-Cheks with sliding scale insulin DVT prevention -Subcutaneous Lovenox Discharge Planning: Anticipate discharge home tomorrow with home health care if continues to improve
--- NOTE | 2018-07-17 10:37 | P.DCO ---
- Physical Therapy Order: Evaluate and treat, Improve ambulation, Strength and gait training - Home Health Nursing Order: Medical education, Signs/symptoms of disease process, Oxygen administration education, Nursing assessment with vital signs - Certification I have seen patient Ana Zepeda on 07/17/18. My clinical findings support the need for the requested home health care services because: Patient has SOB, High risk of falls I certify that my clinical findings support that this patient is homebound because: Hx COPD - exertion dyspnea/weakness, Unsteady gait/balance
[2018-07-17 14:33] LABS: Bilirubin,Urine Negative (Negative); Clarity,Urine Clear (Clear); Color,Urine Yellow (Yellw/Straw); Glucose,Urine (UA) Negative (Negative); Leukocyte Esterase,Urine Negative (Negative); Nitrite,Urine Negative (Negative); Specific Gravity,Urine 1.015 (1.002-1.035); Urobilinogen,Urine 0.2 mg/dL (Less than 2)
[2018-07-17 14:38] LABS: Squamous Epithelial Cell,Urine 0-5 /hpf (0-5); WBC,Urine 0-5 /hpf (0-5)
[2018-07-17 14:39] LABS: Bacteria,Urine Rare /hpf
[2018-07-17] MEDS: Enoxaparin Inj 30 MG/0.3 ML Syringe SQ SCH (17:29)
[2018-07-17] MEDS: Latanoprost 0.005% Opth Drops 2.5 ML Bottle EACH EYE SCH (17:49)
[2018-07-18] MEDS: Levothyroxine 88 MCG Tablet PO SCH (05:05)
[2018-07-18] MEDS: MethylPREDNISolone Sod Succinate Inj 40 MG/ML Vial IV.PUSH SCH (05:06)
[2018-07-18] MEDS ORDERED: amLODIPine 5 MG Tablet PO SCH (07:27)
--- NOTE | 2018-07-18 07:45 | P.DS ---
Date of admission: 07/14/18 17:44 Primary care physician: Valentino Ellis MD Attending physician on discharge: Jorge Walker Anticipated date of discharge: 07/18/18 Brief History from admission: The patient is an 83-year-old female with a past medical history of COPD on home oxygen who is presenting to the hospital with cough and phlegm production. The patient states that over a week ago she developed a cough productive of yellow phlegm. She says she has not been eating much over the past few days. She has a generalized sensation of weakness throughout her body. She says she normally ambulates with a cane but she also has a walker. She denies any recent sick contacts or any recent travel. She says she is on home oxygen at night but she has been told to use it whenever she needs it. She denies any chest pain. She denies any dysuria but does endorse constipation. She has not noticed any fevers. DS: Diagnosis - Discharge Diagnosis (1) COPD (chronic obstructive pulmonary disease) Status: Acute (2) Physical deconditioning Status: Acute DS: Medications - Discharge Medications Prescriptions: guaifenesin [Mucinex] 600 mg PO BID #14 tab ipratropium-albuterol 1 amp NEB Q6HR WHILE AWAKE NEB #1 box levofloxacin [Levaquin] 750 mg PO Q48H #4 tab prednisone 5 mg PO DIRECTED #21 tab DS: Summary Hospital Course: 83-year-old female who originally presented the hospital because of shortness of breath and dyspnea. Patient does have chronic proximal respiratory failure on home O2, long-standing history of chronic obstructive pulmonary disease and was admitted for acute on chronic hypoxic respiratory failure secondary to COPD exacerbation. Patient had significantly decreased lung sounds with rhonchi, wheeze. Patient was admitted with IV antibiotics to include Levaquin, IV Solu-Medrol, duo nebs every 6 hours while awake and every 2 hours as needed, Mucinex 600 mg twice daily. Patient was started on supportive treatments to include incentive spirometry and Acapella. Patient tolerated treatment throughout the hospitalization with continued improvement of airway and lung sounds. Patient did undergo physical therapy who recommended outpatient home health care with physical therapy. Patient did have cultures performed blood cultures remain negative during his stay in the hospital. Sputum culture showed heavy growth normal respiratory mana. Patient did have increase leukocytosis during his stay in the hospital secondary to steroid use. Patient did remain afebrile during her stay in the hospital. Patient is doing much better. Patient does have oxygen at home which she is on 2 L on a regular basis. It was discussed with patient that she should continue oxygen when she gets home. Patient clinically improved at this time. Case management consulted to arrange home health care. We will plan discharge accordingly. - Time Spent with Patient Total time spent providing and/or coordinating discharge services: Greater than 30 minutes - Quality: VTE Deep Vein Thrombosis/Pulmonary Embolism Present on Admission: No Exam Vital signs: Vital Signs 07/17/18 07:45 07/17/18 08:00 07/17/18 11:16 Temperature 97.8 F Pulse Rate 66 64 Respiratory Rate 16 19 18 Blood Pressure 170/79 H Pulse Oximetry 98 95 07/17/18 12:00 07/17/18 16:00 07/17/18 19:43 Temperature 97.8 F 97.8 F Pulse Rate 64 71 69 Respiratory Rate 21 20 18 Blood Pressure 136/66 157/75 H Pulse Oximetry 97 95 98 07/17/18 20:00 07/18/18 00:00 Temperature 97.1 F L 96.1 F L Pulse Rate 65 61 Respiratory Rate 20 20 Blood Pressure 155/95 H 152/70 H Pulse Oximetry 98 97 Intake & Output 07/17/18 07/18/18 07/18/18 18:59 06:59 18:59 Intake Total 920 / 920 720 / 720 Output Total 201 / 201 1000 / 1000 Balance 719 / 719 -280 / -280 Weight 73.9 kg Intake: Oral 920 / 920 720 / 720 Output: Urine 200 / 200 1000 / 1000 Stool Other: # Voids 3 Date of Last Bowel Movement 07/17/18 Narrative: GENERAL: Well-developed, well-nourished, in no acute distress. alert and orientated HEENT: Head is normocephalic without any lesions or masses noted. Facial features are symmetric. Eyes: Extraocular muscles are intact. Conjunctivae were clear. NECK: Supple without any masses. Trachea midline no deviation. No JVD, CARDIAC: Regular rhythm, regular rate. S1/S2 are heard. No murmurs gallops or rubs. LUNGS: Lung sounds continue to be improved. There is diminished breath sounds. However no wheeze, rhonchi, rales. No use of accessory muscles on inspiration or expiration. ABDOMEN: Soft, nontender. Nondistended. Bowel sounds heard in all 4 quadrants. No organomegaly or masses. Negative rebound, negative guarding EXTREMITIES: No edema, pulses are equal bilaterally. No cyanosis or clubbing NEUROLOGY: Mood and affect appear appropriate. Cranial nerves II through XII grossly intact. Moving all extremities, speech is clear Results Procedures completed during hospitalization: none Labs on day of discharge: Labs from last 24 hours 07/17/18 07/17/18 07/17/18 20:18 16:27 14:20 POC Glucose 146 H 133 H Urine Color Yellow Urine Clarity Clear Urine pH 6.0 Ur Specific [place] 1.015 Urine Protein Negative Urine Glucose (UA) Negative Urine Ketones Negative Urine Occult Blood Negative Urine Nitrate Negative Urine Bilirubin Negative Urine Urobilinogen 0.2 Ur Leukocyte Esterase Negative Urine WBC 0-5 Ur Squamous Epith Cells 0-5 Urine Bacteria Rare H Micro UA Comment Culture not ind Ur Microscopic Review Microscopic reviewed Urine Culture Comments Culture not ind 07/17/18 07/17/18 11:15 07:40 POC Glucose 254 H 162 H Urine Color Urine Clarity Urine pH Ur Specific [place] Urine Protein Urine Glucose (UA) Urine Ketones Urine Occult Blood Urine Nitrate Urine Bilirubin Urine Urobilinogen Ur Leukocyte Esterase Urine WBC Ur Squamous Epith Cells Urine Bacteria Micro UA Comment Ur Microscopic Review Urine Culture Comments Preliminary micro results at discharge 07/14/18 14:31 Aerobic Blood Culture - Preliminary Blood - Peripheral No growth in 3 days Anaerobic Blood Culture - Preliminary No growth in 3 days 07/14/18 14:25 Aerobic Blood Culture - Preliminary Blood - Peripheral No growth in 3 days Anaerobic Blood Culture - Preliminary No growth in 3 days - Impressions ITS Impressions Chest X-Ray 07/14/18 13:56 CONCLUSION: COPD Otherwise stable chest without evidence of acute process. Discharge Plan - Discharge Disposition Patient Disposition: /Home Health Service - Discharge Condition Condition: Stable - Discharge Order Discharge Orders: Discharge Order (Routine); Ordered 07/18/18 Ordered By: Oumar Carter - Discharge Details Anticipated Discharge Date: 07/18/18 Discharge Comment: Admission has been accepted by Dr. MURPHY as an observation to the [facility] - Physicians Team Primary Care Provider: Valentino Ellis Attending Provider: Jorge Walker Other Providers: Terell Figueredo
[2018-07-18] MEDS: Calcium Carbonate 500 MG Tablet PO SCH (09:03)
[2018-07-18 09:04] LABS: Hematocrit 38.3 % (35.0-46.0); Mean Corpuscular HGB Conc 33.8 % (32.0-36.0); Mean Corpuscular Hemoglobin 33.6 pg (27.0-34.0); Mean Corpuscular Volume 99.2 fL (80.0-100.0); Mean Platelet Volume 8.3 fL (7.0-11.0); Platelet Count 243 th/mm3 (150-450); Red Blood Count 3.86 mil/mm3 (4.00-5.30); White Blood Count 15.1 th/mm3 (4.0-11.0)
[2018-07-18] MEDS: Gabapentin 300 MG Capsule PO SCH (09:04)
[2018-07-18] MEDS: Magnesium Oxide 400 MG Tablet PO SCH (09:04)
[2018-07-18] MEDS: guaiFENesin 600 MG ER Tablet PO SCH (09:05)
[2018-07-18] MEDS: Insulin NovoLOG Aspart Correctional Sugar Inj SQ SCH (09:06)
[2018-07-18] MEDS: Metoprolol Tartrate 50 MG Tablet PO SCH (09:06)
[2018-07-18] MEDS: Senna/Docusate Sodium 8.6/50 MG Tablet PO SCH (09:06)
[2018-07-18 09:32] VITALS: BP 154/82; PULSE 74; RESP 17; TEMP 98.1; O2SAT 96
[2018-07-18 09:36] LABS: Lymphocytes 17 % (9-44); Monocytes 3 % (0-8); Platelet Estimate Normal (Normal); Platelet Morphology Normal (Normal); RBC Morphology Normal (Normal)
== END 2018-07-18 10:07 | disposition home health service (06) ==
LOC: PHED 12:29 → PHEDA 17:44 → PH3 19:56
PROVIDERS: ADMIT Family Medicine; ATTEND Family Medicine

== ENCOUNTER 2018-07-23 14:14 | Observation (INO) ==
--- NOTE | 2018-07-23 14:27 | ED ---
HPI General Chief Complaint: Altered Mental Status Stated Complaint: AMS Time Seen by Provider: 07/23/18 14:20 Source: patient and EMS Mode of arrival: EMS Limitations: physical limitation History of Present Illness HPI Narrative: The patient is an 83-year-old female with past medical of COPD as well as colitis, aortic valve regurgitation, hypothyroidism, hypertension, diabetes and hyperlipidemia that was brought in by EMS as a possible stroke. It is unknown whether the onset of symptoms were the source convoluted. As per EMS they received a call 30 minutes prior to arrival for what they believed to be a vasovagal response because the patient felt dizzy as per daughter that was there. It is unknown about the onset of symptoms and and on arrival EMS reported a blood pressure of we asked the paramedics several times but they stated that they were both poor historians and will cannot get an onset of symptoms. Apparently the patient had episodes of dizziness 90/60 that did not start an IV that did not give any fluids in the just brought to the emergency department as a possible stroke alert. She had taken MiraLAX this morning for constipation and it is unknown whether she had any diarrhea or bowel movement since then. Apparently her daughter is on the way here. we do not have information if the patient is on any anticoagulation meds. EMS also reported that on arrival to the house her HR was in the 30s Apparently the patient was discharged on the of this month when she was admitted for COPD exacerbation and physical deconditioning. Onset (ago): unknown (call to EMS was 30 minutes prior to arrival here) Location: other (weakness, EMS reported Right Facial droop) History of same: No Quality: weak Associated symptoms: confusion Treatments Prior to Arrival: none Related Data Home Medications Medication Instructions Recorded Confirmed aspirin [Aspir-81] 81 mg PO DAILY 07/14/18 07/24/18 atorvastatin 10 mg PO DAILY 07/14/18 07/23/18 calcium carbonate [Calcium 500] 1,000 mg PO DAILY 07/14/18 07/23/18 cholecalciferol (vitamin D3) See Label Instructions .ROUTE 07/14/18 07/23/18 [Vitamin D3] .COMPLEX cyanocobalamin (vitamin B-12) 500 mcg PO DAILY 07/14/18 07/23/18 [Vitamin B-12] docusate sodium [Stool Softener] 50 mg PO DAILY 07/14/18 07/23/18 enalapril maleate 20 mg PO BID 07/14/18 07/23/18 ferrous sulfate, dried [iron] 65 mg PO DAILY 07/14/18 07/23/18 gabapentin 300 mg PO TID 07/14/18 07/23/18 lactobacillus combination no.4 3,000 mmu cells PO DAILY 07/14/18 07/23/18 [Probiotic] latanoprost 1 drp OPHTHALMIC (EYE) QPM 07/14/18 07/23/18 levothyroxine 88 mcg PO DAILY 07/14/18 07/23/18 magnesium 600 mg PO BID 07/14/18 07/23/18 metoprolol tartrate 50 mg PO BID 07/14/18 07/23/18 multivitamin See Label Instructions .ROUTE 07/14/18 07/23/18 .COMPLEX omega [id number]-fish oil [Fish Oil] See Label Instructions .ROUTE 07/14/1807/23 .COMPLEX polyethylene glycol 3350 [Miralax] 17 g PO DAILY PRN 07/14/18 07/23/18 psyllium seed (with dextrose) 1.7 g PO DAILY 07/14/18 07/23/18 [fiber] Previous Rx's Medication Instructions Recorded guaifenesin [Mucinex] 600 mg PO BID #14 tab 07/18/18 ipratropium-albuterol 1 amp NEB Q6HR WHILE AWAKE NEB #1 07/18/18 box levofloxacin [Levaquin] 750 mg PO Q48H #4 tab 07/18/18 prednisone 5 mg PO DIRECTED #21 tab 07/18/18 Allergies Allergy/AdvReac Type Severity Reaction Status Date / Time Cephalosporins Allergy Intermediate Rash Verified 07/14/18 14:20 penicillin G Allergy Intermediate Rash Verified 07/14/18 13:18 Review of Systems ROS Unobtainable ROS Unobtainable: unobtainable due to mental condition and other (Patient denies any pain.) PMFSH History History Provided By: Patient, Medical Record and Devulcanizer Head / EMT Medical History Medical History Aortic valve regurgitation (Acute) Back pain (Acute) COPD (chronic obstructive pulmonary disease) (Acute) Colitis (Acute) Diabetes mellitus (Acute) High cholesterol (Acute) Hypertension (Acute) Hypothyroidism (Acute) Social History Social History Substance History: No History of Abuse Second Hand Smoke Exposure: No Smoking Status: Former smoker Tobacco Type: Cigarettes How Often Do You Have a Drink Containing Alcohol: Never Recent Travel in [facility] within the Last 8 Weeks: No Recent Out of Country Travel within the Last 8 Weeks: No Immunization History Hx Influenza Vaccine This Season: Unable to Assess Exam Narrative Exam Narrative: GENERAL: Alert and oriented in no distress SKIN: Focused skin assessment warm/dry. HEAD: Atraumatic. Normocephalic. EYES: Pupils equal and round. No scleral icterus. No injection or drainage. ENT: No nasal bleeding or discharge. Mucous membranes pink and moist. NECK: Trachea midline. No JVD. CARDIOVASCULAR: Regular rate and rhythm. No murmur appreciated. RESPIRATORY: No accessory muscle use. Clear to auscultation. Breath sounds equal bilaterally. GASTROINTESTINAL: Abdomen soft, non-tender, nondistended. Hepatic and splenic margins not palpable. MUSCULOSKELETAL: No obvious deformities. No clubbing. No cyanosis. No edema. NEUROLOGICAL: Awake and alert. No obvious cranial nerve deficits. Motor grossly within normal limits. Normal speech. PSYCHIATRIC: Appropriate mood and affect; insight and judgment normal. Course Reevaluation(s) Reevaluation #1: Her son just arrived and he actually told us that she was fine up until 5 minutes prior to them calling an ambulance which means that the patient was at normal baseline 36 minutes prior to arriving to our facility. We will initiate stroke alert and continue with our evaluation. Time: 14:54 Reevaluation #2: Family not very helpful with presentation disease process and past medical history. Pt appears to be comfortable in no distress. Alert and Oriented Time: 15:58 Reevaluation #3: Patient with elevated lactate and white count of 14,000 she has 1800 cc of urine in the collection bag. UA is pending still at this time. We will going to start her on Cipro for presumptive UTI/urosepsis because she is allergic to penicillin and cephalosporins. Time: 17:09 Additional Reevaluation(s): admitting physician requested ABGs. will obtain and call back with results Initial Documented Vital Signs Temperature 97.9 F 07/23/18 14:36 Pulse Rate 66 07/23/18 14:36 Respiratory Rate 20 07/23/18 14:36 Blood Pressure 139/80 07/23/18 14:36 Pulse Oximetry 96 07/23/18 14:36 Last Documented Vital Signs Temperature 98.4 F 07/25/18 11:50 Pulse Rate 66 07/25/18 11:50 Respiratory Rate 18 07/25/18 11:50 Blood Pressure 127/67 07/25/18 11:50 Pulse Oximetry 100 07/25/18 11:50 Critical Care Time Critical Care Time: Yes Total Critical Care Time: 30 Attestation: Aggregate critical care time was 30 minutes. Time to perform other separately billable procedures was not included in the critical care time. My time did not include minutes spent treating any other patients simultaneously or on activities that did not directly contribute to the patient's treatment. The services I provided to this patient were to treat and/or prevent clinically significant deterioration that could result in: Permanent disability and/or I provided critical care services requiring my management, as noted below: Chart data review, documentation time, medication orders and management, vital sign assessments/reviewing monitor data, ordering and reviewing lab tests, ordering and interpreting/reviewing x-rays and diagnostic studies, care of the patient and discussion of the patient with the admitting physicians. Sign Out Sign Out Data: Patient Sign Out occurred on 07/23/18 at 19:03. Patient's care was discussed, and care was transferred from Hugh Urbano DO to Haresh Smith. Sign Out Comment: Patient to be admitted for possible TIA. She has an elevated lactate and leukocytosis without definitive source. Will awaiting ABGs at this time patient CARE was transferred to Dr. Smith. Last updated by Hugh Urbano DO at 07/23/18 18:57 Post-Handoff Eval: UA negative for UTI Leukocytosis 14.5, no anemia, normal platelet count, mild left shift of 74% neutrophilia Chest x-ray read by radiologist as no acute cardia pulmonary disease CT head read by radiologist as old findings such as lacunar infarcts, periventricular white matter disease, cerebral atrophy, no acute hemorrhage CTA shows no significant stenosis occlusion or aneurysm CTA neck shows no significant carotid artery disease and patent bilateral vertebral arteries Coagulation profile within normal limits ABG shows 7.57 PCO2 of 26 PaO2 0105 this was on room air showing respiratory hyper ventilation/respiratory alkalosis Hyponatremia noted at 128, potassium 4.1, chloride 87, BUN of 28, 1.3 creatinine First set of cardiac enzymes negative. Lactic acid slightly elevated at 2.3 NIH Stroke Scale NIHSS Time Completed NIHSS Time Completed: 14:20 NIH Stroke Scale Level of Consciousness: 0-Alert Orientation Questions: 0-Answers both correct Responds to Commands: 0-Both tasks correct Gaze Eye Movement: 0-Horizontal movement WNL Visual [place]: 0-No visual field defect Facial Movement: 0-Normal Motor Functions Arm LEFT: 1-Drift before 10 seconds Motor Functions Arm RIGHT: 1-Drift before 10 seconds Motor Functions Leg LEFT: 1-Drift before 5 seconds Motor Functions Leg RIGHT: 1-Drift before 5 seconds Limb Ataxia: 0-No ataxia Sensory Loss: 0-No sensory loss Best Language: 0-Normal Articulation: 1-Mild dysarthia Extinction or Inattention Sensory: 0-Absent Total: 5 Medical Decision Making MDM Narrative Medical decision making narrative: not a TPa Candidate. Medical Screen Exam Complete: Yes Emergency Medical Condition: Yes Medical Records Medical records reviewed: Yes I reviewed the patient's medical records. Lab Data Lab results reviewed: Yes I reviewed the patient's lab results. Result diagrams: 07/25/18 04:30 07/25/18 04:30 Lab Results 07/23/18 07/23/18 07/23/18 Range/Units 14:23 14:50 14:50 WBC 14.5 H (4.0-11.0) th/mm3 RBC 4.04 (4.00-5.30) mil/mm3 Hgb 13.3 (11.6-15.3) gm/dL POC Hgb (Calc) (11.6-15.3) g/dL Hct 39.7 (35.0-46.0) % POC Hct (35-46.0) % MCV 98.2 (80.0-100.0) fL MCH 32.9 (27.0-34.0) pg MCHC 33.5 (32.0-36.0) % RDW 12.8 (11.6-17.2) % Plt Count 257 (150-450) th/mm3 MPV 8.1 (7.0-11.0) fL Neut % (Auto) 73.7 H (16.0-70.0) % Lymph % (Auto) 18.7 (9.0-44.0) % [place] % (Auto) 7.0 (0.0-8.0) % Eos % (Auto) 0.4 (0.0-4.0) % Baso % (Auto) 0.2 (0.0-2.0) % Neut # (Auto) 10.7 H (1.8-7.7) th/mm3 Lymph # (Auto) 2.7 (1.0-4.8) th/mm3 [place] # (Auto) 1.0 H (0.0-0.9) th/mm3 Eos # (Auto) 0.1 (0.0-0.4) th/mm3 Baso # (Auto) 0.0 (0.0-0.2) th/mm3 WBC Differential . Differential Comment Auto diff final PT 11.0 (9.8-11.6) sec INR 1.1 Ratio APTT 21.2 L (24.3-30.1) sec Puncture Site Patient Temperature O2 Saturation (90-100) % ABG pH (7.380-7.420) ABG pCO2 (38-42) mmHg ABG pO2 (61-120) mmHg ABG HCO3 (22-26) mmol/L ABG O2 Content (12.0-20.0) Vol % ABG Base Excess (-2-2) mmol/L ABG Methemoglobin (0-2) % Ming Test Hemoglobin (12.0-16.0) G/DL Carboxyhemoglobin (0-4) % O2 Delivery Device Liter Flow L/M Critical Value POC Sodium (137-144) mmol/L Sodium (136-145) meq/L POC Potassium (3.6-5.0) mmol/L Potassium (3.5-5.1) meq/L POC Chloride (102-111) mmol/L Chloride (98-107) meq/L Carbon Dioxide (21.0-32.0) meq/L Anion Gap (5-15) meq/L POC BUN (5-21) mg/dL BUN (7-18) mg/dL Creatinine (0.50-1.00) mg/dL POC Creatinine (0.6-1.3) mg/dL Estimated GFR (>89) mL/min POC Glucose 131 H (68-110) mg/dl Random Glucose (74-106) mg/dL Lactic Acid (0.4-2.0) mmol/L Calcium (8.5-10.1) mg/dL Total Bilirubin (0.2-1.0) mg/dL AST (15-37) U/L ALT (10-53) U/L Alkaline Phosphatase (45-117) U/L Total Creatine Kinase (26-192) U/L Troponin I (0.02-0.05) ng/mL Total Protein (6.4-8.2) g/dL Albumin (3.4-5.0) g/dL Urine Color (Yellw/Straw) Urine Clarity (Clear) Urine pH (5.0-8.5) Ur Specific [place] (1.002-1.035) Urine Protein (Neg-Trace) mg/dL Urine Glucose (UA) (Negative) mg/dL Urine Ketones (Negative) mg/dL Urine Occult Blood (Negative) Urine Nitrate (Negative) Urine Bilirubin (Negative) Urine Urobilinogen (Less than 2) mg/dL Ur Leukocyte Esterase (Negative) Urine RBC (0-3) /hpf Urine WBC (0-5) /hpf Hyaline Casts (0-3) /lpf Urine Mucus (Occasional) /lpf Micro UA Comment Ur Microscopic Review Urine Culture Comments 07/23/18 07/23/18 07/23/18 Range/Units 14:51 15:20 15:20 WBC (4.0-11.0) th/mm3 RBC (4.00-5.30) mil/mm3 Hgb (11.6-15.3) gm/dL POC Hgb (Calc) 12.9 (11.6-15.3) g/dL Hct (35.0-46.0) % POC Hct 38.0 (35-46.0) % MCV (80.0-100.0) fL MCH (27.0-34.0) pg MCHC (32.0-36.0) % RDW (11.6-17.2) % Plt Count (150-450) th/mm3 MPV (7.0-11.0) fL Neut % (Auto) (16.0-70.0) % Lymph % (Auto) (9.0-44.0) % [place] % (Auto) (0.0-8.0) % Eos % (Auto) (0.0-4.0) % Baso % (Auto) (0.0-2.0) % Neut # (Auto) (1.8-7.7) th/mm3 Lymph # (Auto) (1.0-4.8) th/mm3 [place] # (Auto) (0.0-0.9) th/mm3 Eos # (Auto) (0.0-0.4) th/mm3 Baso # (Auto) (0.0-0.2) th/mm3 WBC Differential Differential Comment PT (9.8-11.6) sec INR Ratio APTT (24.3-30.1) sec Puncture Site Patient Temperature O2 Saturation (90-100) % ABG pH (7.380-7.420) ABG pCO2 (38-42) mmHg ABG pO2 (61-120) mmHg ABG HCO3 (22-26) mmol/L ABG O2 Content (12.0-20.0) Vol % ABG Base Excess (-2-2) mmol/L ABG Methemoglobin (0-2) % Ming Test Hemoglobin (12.0-16.0) G/DL Carboxyhemoglobin (0-4) % O2 Delivery Device Liter Flow L/M Critical Value POC Sodium 128 L (137-144) mmol/L Sodium 127 L (136-145) meq/L POC Potassium 4.1 (3.6-5.0) mmol/L Potassium 4.1 (3.5-5.1) meq/L POC Chloride 87 L (102-111) mmol/L Chloride 91 L (98-107) meq/L Carbon Dioxide 27.5 (21.0-32.0) meq/L Anion Gap 9 (5-15) meq/L POC BUN 28 H (5-21) mg/dL BUN 26 H (7-18) mg/dL Creatinine 1.30 H (0.50-1.00) mg/dL POC Creatinine 1.2 (0.6-1.3) mg/dL Estimated GFR 39 L (>89) mL/min POC Glucose 112 H (68-110) mg/dl Random Glucose 108 H (74-106) mg/dL Lactic Acid 2.3 H (0.4-2.0) mmol/L Calcium 8.9 (8.5-10.1) mg/dL Total Bilirubin 0.8 (0.2-1.0) mg/dL AST 28 (15-37) U/L ALT 32 (10-53) U/L Alkaline Phosphatase 47 (45-117) U/L Total Creatine Kinase 51 (26-192) U/L Troponin I Less than 0.02 L (0.02-0.05) ng/mL Total Protein 5.9 L (6.4-8.2) g/dL Albumin 3.0 L (3.4-5.0) g/dL Urine Color (Yellw/Straw) Urine Clarity (Clear) Urine pH (5.0-8.5) Ur Specific [place] (1.002-1.035) Urine Protein (Neg-Trace) mg/dL Urine Glucose (UA) (Negative) mg/dL Urine Ketones (Negative) mg/dL Urine Occult Blood (Negative) Urine Nitrate (Negative) Urine Bilirubin (Negative) Urine Urobilinogen (Less than 2) mg/dL Ur Leukocyte Esterase (Negative) Urine RBC (0-3) /hpf Urine WBC (0-5) /hpf Hyaline Casts (0-3) /lpf Urine Mucus (Occasional) /lpf Micro UA Comment Ur Microscopic Review Urine Culture Comments 07/23/18 07/23/18 07/24/18 Range/Units 15:40 18:50 06:41 WBC 16.2 H (4.0-11.0) th/mm3 RBC 4.00 (4.00-5.30) mil/mm3 Hgb 13.1 (11.6-15.3) gm/dL POC Hgb (Calc) (11.6-15.3) g/dL Hct 39.8 (35.0-46.0) % POC Hct (35-46.0) % MCV 99.5 (80.0-100.0) fL MCH 32.7 (27.0-34.0) pg MCHC 32.8 (32.0-36.0) % RDW 12.3 (11.6-17.2) % Plt Count 250 (150-450) th/mm3 MPV 8.3 (7.0-11.0) fL Neut % (Auto) 63.4 (16.0-70.0) % Lymph % (Auto) 27.4 (9.0-44.0) % [place] % (Auto) 8.4 H (0.0-8.0) % Eos % (Auto) 0.6 (0.0-4.0) % Baso % (Auto) 0.2 (0.0-2.0) % Neut # (Auto) 10.3 H (1.8-7.7) th/mm3 Lymph # (Auto) 4.4 (1.0-4.8) th/mm3 [place] # (Auto) 1.4 H (0.0-0.9) th/mm3 Eos # (Auto) 0.1 (0.0-0.4) th/mm3 Baso # (Auto) 0.0 (0.0-0.2) th/mm3 WBC Differential . Differential Comment Auto diff final PT (9.8-11.6) sec INR Ratio APTT (24.3-30.1) sec Puncture Site Right radial Patient Temperature 98.6 O2 Saturation 97 (90-100) % ABG pH 7.57 H* (7.380-7.420) ABG pCO2 27 L (38-42) mmHg ABG pO2 105 (61-120) mmHg ABG HCO3 24 (22-26) mmol/L ABG O2 Content 18.3 (12.0-20.0) Vol % ABG Base Excess 2.1 H (-2-2) mmol/L ABG Methemoglobin 0.6 (0-2) % Ming Test Present Hemoglobin 13.3 (12.0-16.0) G/DL Carboxyhemoglobin 1.2 (0-4) % O2 Delivery Device Nasal cannula Liter Flow 2.00 L/M Critical Value Yes POC Sodium (137-144) mmol/L Sodium (136-145) meq/L POC Potassium (3.6-5.0) mmol/L Potassium (3.5-5.1) meq/L POC Chloride (102-111) mmol/L Chloride (98-107) meq/L Carbon Dioxide (21.0-32.0) meq/L Anion Gap (5-15) meq/L POC BUN (5-21) mg/dL BUN (7-18) mg/dL Creatinine (0.50-1.00) mg/dL POC Creatinine (0.6-1.3) mg/dL Estimated GFR (>89) mL/min POC Glucose (68-110) mg/dl Random Glucose (74-106) mg/dL Lactic Acid (0.4-2.0) mmol/L Calcium (8.5-10.1) mg/dL Total Bilirubin (0.2-1.0) mg/dL AST (15-37) U/L ALT (10-53) U/L Alkaline Phosphatase (45-117) U/L Total Creatine Kinase (26-192) U/L Troponin I (0.02-0.05) ng/mL Total Protein (6.4-8.2) g/dL Albumin (3.4-5.0) g/dL Urine Color Straw (Yellw/Straw) Urine Clarity Clear (Clear) Urine pH 8.0 (5.0-8.5) Ur Specific [place] 1.010 (1.002-1.035) Urine Protein Negative (Neg-Trace) mg/dL Urine Glucose (UA) Negative (Negative) mg/dL Urine Ketones Negative (Negative) mg/dL Urine Occult Blood Negative (Negative) Urine Nitrate Negative (Negative) Urine Bilirubin Negative (Negative) Urine Urobilinogen Less than 2 (Less than 2) mg/dL Ur Leukocyte Esterase Negative (Negative) Urine RBC Less than 1 (0-3) /hpf Urine WBC Less than 1 (0-5) /hpf Hyaline Casts 1 (0-3) /lpf Urine Mucus Few H (Occasional) /lpf Micro UA Comment Cath-culture not ind Ur Microscopic Review Not Reportable Urine Culture Comments Cath-cult not ind 07/24/18 07/24/18 07/24/18 Range/Units 06:41 12:34 17:50 WBC (4.0-11.0) th/mm3 RBC (4.00-5.30) mil/mm3 Hgb (11.6-15.3) gm/dL POC Hgb (Calc) (11.6-15.3) g/dL Hct (35.0-46.0) % POC Hct (35-46.0) % MCV (80.0-100.0) fL MCH (27.0-34.0) pg MCHC (32.0-36.0) % RDW (11.6-17.2) % Plt Count (150-450) th/mm3 MPV (7.0-11.0) fL Neut % (Auto) (16.0-70.0) % Lymph % (Auto) (9.0-44.0) % [place] % (Auto) (0.0-8.0) % Eos % (Auto) (0.0-4.0) % Baso % (Auto) (0.0-2.0) % Neut # (Auto) (1.8-7.7) th/mm3 Lymph # (Auto) (1.0-4.8) th/mm3 [place] # (Auto) (0.0-0.9) th/mm3 Eos # (Auto) (0.0-0.4) th/mm3 Baso # (Auto) (0.0-0.2) th/mm3 WBC Differential Differential Comment PT (9.8-11.6) sec INR Ratio APTT (24.3-30.1) sec Puncture Site Patient Temperature O2 Saturation (90-100) % ABG pH (7.380-7.420) ABG pCO2 (38-42) mmHg ABG pO2 (61-120) mmHg ABG HCO3 (22-26) mmol/L ABG O2 Content (12.0-20.0) Vol % ABG Base Excess (-2-2) mmol/L ABG Methemoglobin (0-2) % Ming Test Hemoglobin (12.0-16.0) G/DL Carboxyhemoglobin (0-4) % O2 Delivery Device Liter Flow L/M Critical Value POC Sodium (137-144) mmol/L Sodium 137 D (136-145) meq/L POC Potassium (3.6-5.0) mmol/L Potassium 4.4 (3.5-5.1) meq/L POC Chloride (102-111) mmol/L Chloride 98 (98-107) meq/L Carbon Dioxide 30.6 (21.0-32.0) meq/L Anion Gap 8 (5-15) meq/L POC BUN (5-21) mg/dL BUN 26 H (7-18) mg/dL Creatinine 1.18 H (0.50-1.00) mg/dL POC Creatinine (0.6-1.3) mg/dL Estimated GFR 44 L (>89) mL/min POC Glucose 89 77 (68-110) mg/dl Random Glucose 92 (74-106) mg/dL Lactic Acid (0.4-2.0) mmol/L Calcium 9.5 (8.5-10.1) mg/dL Total Bilirubin (0.2-1.0) mg/dL AST (15-37) U/L ALT (10-53) U/L Alkaline Phosphatase (45-117) U/L Total Creatine Kinase (26-192) U/L Troponin I (0.02-0.05) ng/mL Total Protein (6.4-8.2) g/dL Albumin (3.4-5.0) g/dL Urine Color (Yellw/Straw) Urine Clarity (Clear) Urine pH (5.0-8.5) Ur Specific [place] (1.002-1.035) Urine Protein (Neg-Trace) mg/dL Urine Glucose (UA) (Negative) mg/dL Urine Ketones (Negative) mg/dL Urine Occult Blood (Negative) Urine Nitrate (Negative) Urine Bilirubin (Negative) Urine Urobilinogen (Less than 2) mg/dL Ur Leukocyte Esterase (Negative) Urine RBC (0-3) /hpf Urine WBC (0-5) /hpf Hyaline Casts (0-3) /lpf Urine Mucus (Occasional) /lpf Micro UA Comment Ur Microscopic Review Urine Culture Comments 07/24/18 07/25/18 07/25/18 Range/Units 20:41 04:30 04:30 WBC 12.5 H (4.0-11.0) th/mm3 RBC 3.63 L (4.00-5.30) mil/mm3 Hgb 12.0 (11.6-15.3) gm/dL POC Hgb (Calc) (11.6-15.3) g/dL Hct 36.3 (35.0-46.0) % POC Hct (35-46.0) % MCV 100.0 (80.0-100.0) fL MCH 32.9 (27.0-34.0) pg MCHC 32.9 (32.0-36.0) % RDW 12.6 (11.6-17.2) % Plt Count 204 (150-450) th/mm3 MPV 8.4 (7.0-11.0) fL Neut % (Auto) (16.0-70.0) % Lymph % (Auto) (9.0-44.0) % [place] % (Auto) (0.0-8.0) % Eos % (Auto) (0.0-4.0) % Baso % (Auto) (0.0-2.0) % Neut # (Auto) (1.8-7.7) th/mm3 Lymph # (Auto) (1.0-4.8) th/mm3 [place] # (Auto) (0.0-0.9) th/mm3 Eos # (Auto) (0.0-0.4) th/mm3 Baso # (Auto) (0.0-0.2) th/mm3 WBC Differential Differential Comment PT (9.8-11.6) sec INR Ratio APTT (24.3-30.1) sec Puncture Site Patient Temperature O2 Saturation (90-100) % ABG pH (7.380-7.420) ABG pCO2 (38-42) mmHg ABG pO2 (61-120) mmHg ABG HCO3 (22-26) mmol/L ABG O2 Content (12.0-20.0) Vol % ABG Base Excess (-2-2) mmol/L ABG Methemoglobin (0-2) % Ming Test Hemoglobin (12.0-16.0) G/DL Carboxyhemoglobin (0-4) % O2 Delivery Device Liter Flow L/M Critical Value POC Sodium (137-144) mmol/L Sodium 135 L (136-145) meq/L POC Potassium (3.6-5.0) mmol/L Potassium 4.2 (3.5-5.1) meq/L POC Chloride (102-111) mmol/L Chloride 99 (98-107) meq/L Carbon Dioxide 25.4 (21.0-32.0) meq/L Anion Gap 11 (5-15) meq/L POC BUN (5-21) mg/dL BUN 27 H (7-18) mg/dL Creatinine 1.34 H (0.50-1.00) mg/dL POC Creatinine (0.6-1.3) mg/dL Estimated GFR 38 L (>89) mL/min POC Glucose 90 (68-110) mg/dl Random Glucose 77 (74-106) mg/dL Lactic Acid (0.4-2.0) mmol/L Calcium 8.5 D (8.5-10.1) mg/dL Total Bilirubin (0.2-1.0) mg/dL AST (15-37) U/L ALT (10-53) U/L Alkaline Phosphatase (45-117) U/L Total Creatine Kinase (26-192) U/L Troponin I (0.02-0.05) ng/mL Total Protein (6.4-8.2) g/dL Albumin (3.4-5.0) g/dL Urine Color (Yellw/Straw) Urine Clarity (Clear) Urine pH (5.0-8.5) Ur Specific [place] (1.002-1.035) Urine Protein (Neg-Trace) mg/dL Urine Glucose (UA) (Negative) mg/dL Urine Ketones (Negative) mg/dL Urine Occult Blood (Negative) Urine Nitrate (Negative) Urine Bilirubin (Negative) Urine Urobilinogen (Less than 2) mg/dL Ur Leukocyte Esterase (Negative) Urine RBC (0-3) /hpf Urine WBC (0-5) /hpf Hyaline Casts (0-3) /lpf Urine Mucus (Occasional) /lpf Micro UA Comment Ur Microscopic Review Urine Culture Comments 07/25/18 07/25/18 07/25/18 Range/Units 07:46 10:49 12:43 WBC (4.0-11.0) th/mm3 RBC (4.00-5.30) mil/mm3 Hgb (11.6-15.3) gm/dL POC Hgb (Calc) (11.6-15.3) g/dL Hct (35.0-46.0) % POC Hct (35-46.0) % MCV (80.0-100.0) fL MCH (27.0-34.0) pg MCHC (32.0-36.0) % RDW (11.6-17.2) % Plt Count (150-450) th/mm3 MPV (7.0-11.0) fL Neut % (Auto) (16.0-70.0) % Lymph % (Auto) (9.0-44.0) % [place] % (Auto) (0.0-8.0) % Eos % (Auto) (0.0-4.0) % Baso % (Auto) (0.0-2.0) % Neut # (Auto) (1.8-7.7) th/mm3 Lymph # (Auto) (1.0-4.8) th/mm3 [place] # (Auto) (0.0-0.9) th/mm3 Eos # (Auto) (0.0-0.4) th/mm3 Baso # (Auto) (0.0-0.2) th/mm3 WBC Differential Differential Comment PT (9.8-11.6) sec INR Ratio APTT (24.3-30.1) sec Puncture Site Patient Temperature O2 Saturation (90-100) % ABG pH (7.380-7.420) ABG pCO2 (38-42) mmHg ABG pO2 (61-120) mmHg ABG HCO3 (22-26) mmol/L ABG O2 Content (12.0-20.0) Vol % ABG Base Excess (-2-2) mmol/L ABG Methemoglobin (0-2) % Ming Test Hemoglobin (12.0-16.0) G/DL Carboxyhemoglobin (0-4) % O2 Delivery Device Liter Flow L/M Critical Value POC Sodium (137-144) mmol/L Sodium (136-145) meq/L POC Potassium (3.6-5.0) mmol/L Potassium (3.5-5.1) meq/L POC Chloride (102-111) mmol/L Chloride (98-107) meq/L Carbon Dioxide (21.0-32.0) meq/L Anion Gap (5-15) meq/L POC BUN (5-21) mg/dL BUN (7-18) mg/dL Creatinine (0.50-1.00) mg/dL POC Creatinine (0.6-1.3) mg/dL Estimated GFR (>89) mL/min POC Glucose 90 116 H 86 (68-110) mg/dl Random Glucose (74-106) mg/dL Lactic Acid (0.4-2.0) mmol/L Calcium (8.5-10.1) mg/dL Total Bilirubin (0.2-1.0) mg/dL AST (15-37) U/L ALT (10-53) U/L Alkaline Phosphatase (45-117) U/L Total Creatine Kinase (26-192) U/L Troponin I (0.02-0.05) ng/mL Total Protein (6.4-8.2) g/dL Albumin (3.4-5.0) g/dL Urine Color (Yellw/Straw) Urine Clarity (Clear) Urine pH (5.0-8.5) Ur Specific [place] (1.002-1.035) Urine Protein (Neg-Trace) mg/dL Urine Glucose (UA) (Negative) mg/dL Urine Ketones (Negative) mg/dL Urine Occult Blood (Negative) Urine Nitrate (Negative) Urine Bilirubin (Negative) Urine Urobilinogen (Less than 2) mg/dL Ur Leukocyte Esterase (Negative) Urine RBC (0-3) /hpf Urine WBC (0-5) /hpf Hyaline Casts (0-3) /lpf Urine Mucus (Occasional) /lpf Micro UA Comment Ur Microscopic Review Urine Culture Comments Imaging Data Radiologist's impression: Head MRI 07/23/18 00:00 CONCLUSION: 1. No acute findings. No recent infarct. Mild chronic white matter ischemic changes. Chest X-Ray 07/23/18 14:20 CONCLUSION: No acute cardiopulmonary disease. Head CT 07/23/18 14:20 CONCLUSION: 1. No acute hemorrhage, midline shift or extra-axial fluid collections. 2. Mild cerebral atrophy and periventricular white matter small vessel ischemic changes bilaterally. 3. Scattered old tiny lacunar infarcts within the bilateral basal ganglia. Report was called by Dr. Rodríguez to Dr. Urbano at 3:09 PM on 07/23/2018. Head CTA 07/23/18 14:20 CONCLUSION: 1. No significant stenosis, occlusion or aneurysm. 2. Patent bilateral posterior communicating arteries with the left posterior cerebral artery supplied by the left posterior communicating artery. Neck CTA 07/23/18 14:20 CONCLUSION: 1. No significant carotid artery stenosis. 2. Patent bilateral vertebral arteries. ECG Data Attestation: I personally reviewed and interpreted this ECG as follows: Interpretation: Sinus rhythm 64 bpm NJ 165 QTC [address]-T wave abnormalities no signs of acute ischemia. Discharge Plan Discharge Disposition Patient Disposition: 30 Still Patient Discharge Condition Condition: Good Discharge Order Discharge Orders: Discharge Order (Routine); Ordered 07/25/18 Ordered By: Lila Monterroso Discharge Details Anticipated Discharge Date: 07/25/18 Diagnosis: TIA (transient ischemic attack), Acute urinary retention, Acidosis, lactic Physicians Team ED Provider: Haresh Smith Primary Care Provider: UNKNOWN, Attending Provider: Lila Monterroso Other Providers: [employer] Status ED Status: Left Department Discharge Information Discharge Date/Time: 07/24/18 01:32
--- NOTE | 2018-07-23 15:07 | XR ---
EXAM DATE: 07/23/2018 2:58 PM EDT AGE/SEX: 83 years / Female INDICATIONS: Stroke alert; AMS. CLINICAL DATA: This is the patient's initial encounter. Patient reports that signs and symptoms have been present for 1 day and indicates a pain score of 0/10. MEDICAL/SURGICAL HISTORY: Chronic obstructive pulmonary disease. None. COMPARISON: [facility], CHEST 1V SINGLE AP, 07/14/2018. . FINDINGS: A single AP view of the chest demonstrates the lungs to be symmetrically aerated without evidence of mass, infiltrate or effusion. The cardiomediastinal contours are unremarkable. Osseous structures a re intact. CONCLUSION: No acute cardiopulmonary disease. Electronically signed by: Frank Rodríguez MD 07/23/2018 3:06 PM EDT
--- NOTE | 2018-07-23 15:12 | CT ---
EXAM DATE: 07/23/2018 3:05 PM EDT AGE/SEX: 83 years / Female INDICATIONS: Stroke alert, altered mental status. CLINICAL DATA: This is the patient's initial encounter. Patient reports that signs and symptoms have been present for 1 day and indicates a pain score of Nonresponsive. MEDICAL/SURGICAL HISTORY: Non-responsive. Non-responsive. RADIATION DOSE: 30.96 CTDI (mGy) COMPARISON: [facility], CT BRAIN W/O CONTRAST, 06/07/2016. . TECHNIQUE: CT of the head without contrast. Using automated exposure control and adjustment of the mA and/or kV according to patient size, radiation dose was kept as low as reasonably achievable to ob tain optimal diagnostic quality images. DICOM format image data is available electronically for revi ew and comparison. FINDINGS: Cerebrum: Mild cerebral atrophy is noted. No evidence of midline shift, mass lesion, hemorrhage or a cute infarction. No extraaxial fluid collections are seen. Mild periventricular white matter small v essel ischemic changes are noted bilaterally. Tiny old lacunar infarcts are noted within the bilatera l basal ganglia. Posterior Fossa: The cerebellum and brainstem are intact. The 4th ventricle is midline. The cerebe llopontine angle is unremarkable. Extracranial: The visualized portion of the orbits is intact. Skull: The calvaria is intact. No evidence of skull fracture. CONCLUSION: 1. No acute hemorrhage, midline shift or extra-axial fluid collections. 2. Mild cerebral atrophy and periventricular white matter small vessel ischemic changes bilaterally. 3. Scattered old tiny lacunar infarcts within the bilateral basal ganglia. Report was called by Dr. Rodríguez to Dr. Urbano at 3:09 PM on 07/23/2018. Electronically signed by: Frank Rodríguez MD 07/23/2018 3:11 PM EDT
--- NOTE | 2018-07-23 15:24 | CT ---
EXAM DATE: 07/23/2018 3:19 PM EDT AGE/SEX: 83 years / Female INDICATIONS: Stroke alert, altered mental status. CLINICAL DATA: This is the patient's initial encounter. Patient reports that signs and symptoms have been present for 1 day and indicates a pain score of Nonresponsive. MEDICAL/SURGICAL HISTORY: Non-responsive. Non-responsive. RADIATION DOSE: 26.41 CTDI (mGy) ; Combined studies COMPARISON: [facility], CT HEAD W/O CONTRAST, 07/23/2018. [facility], CT BRAIN W/O CONTRAST, 06/07/2016. . TECHNIQUE: Volumetric scanning was performed using a multi-row detector CT scanner during bolus infu ama of 79 ml Visipaque 320 (iodixanol) nonionic water-soluble contrast as a cumulative dose for mul tiple exams. The data was post processed with a variety of visualization algorithms including full volume maximum intensity projection, multi-planar sliding thin slab reformation, curved planar reform ation, and surface rendering techniques. Using automated exposure control and adjustment of the mA a nd/or kV according to patient size, radiation dose was kept as low as reasonably achievable to obtain optimal diagnostic quality images. DICOM format image data is available electronically for review a nd comparison. FINDINGS: There is excellent visualization of the major intracranial arteries out to the second-order branch ve ssels. There is no evidence for aneurysm, vessel truncation or stenosis, and no evidence for vascula r malformation. Patent bilateral posterior communicating arteries are noted. The left posterior cereb ral artery is supplied by the posterior communicating artery. CONCLUSION: 1. No significant stenosis, occlusion or aneurysm. 2. Patent bilateral posterior communicating arteries with the left posterior cerebral artery supplie d by the left posterior communicating artery. Electronically signed by: Frank Rodríguez MD 07/23/2018 3:23 PM EDT
[2018-07-23 15:27] LABS: Baso % (Auto) 0.2 % (0.0-2.0); Eos # (Auto) 0.1 th/mm3 (0.0-0.4); Eos % (Auto) 0.4 % (0.0-4.0); Hematocrit 39.7 % (35.0-46.0); Hemoglobin 13.3 gm/dL (11.6-15.3); Lymph # (Auto) 2.7 th/mm3 (1.0-4.8); Lymph % (Auto) 18.7 % (9.0-44.0); Mean Corpuscular HGB Conc 33.5 % (32.0-36.0); Mean Corpuscular Hemoglobin 32.9 pg (27.0-34.0); Mean Corpuscular Volume 98.2 fL (80.0-100.0); Mean Platelet Volume 8.1 fL (7.0-11.0); Neut # (Auto) 10.7 th/mm3 (1.8-7.7); Neut % (Auto) 73.7 % (16.0-70.0); Platelet Count 257 th/mm3 (150-450); Red Blood Count 4.04 mil/mm3 (4.00-5.30); Red Cell Distribution Width 12.8 % (11.6-17.2); White Blood Count 14.5 th/mm3 (4.0-11.0)
[2018-07-23] MEDS: Sod Chloride 0.9% Inj 1,000 ML IV.CONT SCH (15:34)
[2018-07-23 15:39] LABS: Activated Partial Thrombo Time 21.2 sec (24.3-30.1); INR 1.1 Ratio
[2018-07-23] MEDS ORDERED: Sod Chloride 0.9% Inj 1,000 ML IV.SIG ONE (15:48)
--- NOTE | 2018-07-23 15:53 | CT ---
EXAM DATE: 07/23/2018 3:30 PM EDT AGE/SEX: 83 years / Female INDICATIONS: Stroke alert, altered mental status. CLINICAL DATA: This is the patient's initial encounter. Patient reports that signs and symptoms have been present for 1 day and indicates a pain score of Nonresponsive. MEDICAL/SURGICAL HISTORY: Non-responsive. Non-responsive. RADIATION DOSE: 26.41 CTDI (mGy) ; Combined studies COMPARISON: [facility], CTA HEAD W CONTRAST W 3D, 07/23/2018. . TECHNIQUE: Volumetric scanning was performed using a multirow detector CT scanner during bolus infus ion of 73 ml Visipaque 320 (iodixanol) nonionic water-soluble contrast as a cumulative dose for mult iple exams. The data was postprocessed with a variety of visualization algorithms including full-vo lume maximum intensity projection, multiplanar sliding thin-slab reformation, curved-planar reformati on, and surface-rendering techniques. Using automated exposure control and adjustment of the mA and/ or kV according to patient size, radiation dose was kept as low as reasonably achievable to obtain op timal diagnostic quality images. DICOM format image data is available electronically for review and comparison. Percent stenosis is calculated using the diameter of the stenotic region over the diameter of the nor mal distal internal carotid artery. FINDINGS: Aortic Arch: Two-vessel bovine type arch anatomy. Arch vessels are tortuous but patent. Right Carotid: The common carotid artery is intact. The carotid bulb has a normal configuration wit hout ulceration or narrowing. The internal carotid artery lumen is patent without significant stenos is. There is medial displacement of the internal carotid artery which is otherwise tortuous. The ext ernal carotid artery is intact. Left Carotid: The common carotid artery is intact. Mild calcified plaque in the carotid bulb extendi ng to the origin of the internal carotid artery with resultant less than 10% stenosis. The internal c arotid artery lumen is medially deviated but otherwise patent to the skull base. The external carotid artery is intact. Vertebrals: The vertebral arteries have a symmetric diameter. No stenotic lesions are seen. General Findings: Lung apices demonstrate mild centrilobular emphysema. Thyroid is unremarkable by CT . No significant adenopathy. CONCLUSION: 1. No significant carotid artery stenosis. 2. Patent bilateral vertebral arteries. Electronically signed by: Jonny Meade MD 07/23/2018 3:52 PM EDT
[2018-07-23 16:24] LABS: Alanine Aminotransferase 32 U/L (10-53)
[2018-07-23 16:29] LABS: Alkaline Phosphatase 47 U/L (45-117); Total Protein 5.9 g/dL (6.4-8.2)
[2018-07-23 16:35] LABS: Creatine Kinase 51 U/L (26-192)
--- NOTE | 2018-07-23 16:35 | MB ---
cc: Aurea Loya MD DATE: 07/23/2018 REASON FOR CONSULTATION: Possible Stroke alert. HISTORY OF PRESENT ILLNESS: This is an 83-year-old woman with a history of COPD, aortic valve regurgitation, hypothyroidism, colitis, hypertension, diabetes, hyperlipidemia, who came in by EMS for possible stroke. Apparently, her daughter noted that she was sitting at her desk paying bills in her usual state of health when she wanted to go to the bathroom. While on the toilet, she had what sounds like a vasovagal type response. She became dizzy, diaphoretic and unresponsive, but did not lose awareness. She called paramedics and noted that she had a low blood pressure of 90/60, heart rate, possibly in the 30s. She has also been constipated for nearly 5 days. She came in as a stroke alert. She had CT, CTA of [place] and carotids that were really unremarkable for anything acute. The patient just complained that she feels cold, but is talking and moving everything now. She is not a candidate for tPA due to back at baseline. She was apparently here a few days ago with COPD exacerbation and discharged on Cipro and steroid taper. She does take baby aspirin regularly. PHYSICAL EXAMINATION: VITAL SIGNS: Temperature is 97.9, pulse 66, respiratory rate 20, blood pressure 139/80, saturating 96% on 2 liters. NECK: Supple, no bruits. HEART: Regular. GENERAL: She is awake and alert, in no acute distress. HEENT: She is hypophonic. Her pupils are reactive. Her face looks fairly symmetrical with oxygen. Tongue midline. Her facial sensation is normal. Hearing is normal. 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 I do not see any significant weakness on one side. Her DTRs are trace upper. I cannot elicit any at the ankles or the knees. Toes are neutral. Sensory is normal. Gait is withheld at this time. LABORATORY DATA: Her laboratory are reviewed. Her CBC: White count 14.5. Chemistries are not back. Lactic acid is pending. IMAGING: CT brain without any acute findings. CTA of the carotids and [place] without any stenosis. IMPRESSION: Possible vasovagal response. Possible transient ischemic attack. RECOMMENDATIONS: Recommend at this point in time continue the patient's baby aspirin. We will get an MRI of the brain and EEG and a 2-D echo. Watch her blood pressure, watch her heart rate, give her something for her constipation, maintain the Dc and further recommendations will be made if needed. SCDs and Lovenox for DVT prophylaxis. Further recommendations accordingly. MD DUSTY Juarez/arnaud , 04:16 PM , 04:25 PM
[2018-07-23 16:45] LABS: Bilirubin,Urine Negative (Negative); Clarity,Urine Clear (Clear); Color,Urine Straw (Yellw/Straw); Glucose,Urine (UA) Negative (Negative); Hyaline Casts,Urine 1 /lpf (0-3); Leukocyte Esterase,Urine Negative (Negative); Mucus,Urine Few /lpf (Occasional); Nitrite,Urine Negative (Negative)
[2018-07-23 16:46] LABS: Anion Gap 9 meq/L (5-15); Aspartate Aminotransferase 28 U/L (15-37); Blood Urea Nitrogen 26 mg/dL (7-18); Calcium 8.9 mg/dL (8.5-10.1); Carbon Dioxide 27.5 meq/L (21.0-32.0); Chloride 91 meq/L (98-107); Glomerular Filtration Rate 39 mL/min (>89); Glucose,Random 108 mg/dL (74-106); Potassium 4.1 meq/L (3.5-5.1); Sodium 127 meq/L (136-145)
[2018-07-23] MEDS ORDERED: Ciprofloxacin 400 MG/200 ML 400 MG/200 ML PIGGYBACK IV.SIG ONE (17:06)
--- NOTE | 2018-07-23 18:47 | MR ---
EXAM DATE: 07/23/2018 6:24 PM EDT AGE/SEX: 83 years / Female INDICATIONS: Altered mental status. CLINICAL DATA: This is the patient's initial encounter. Patient reports that signs and symptoms have been present for 1 day and indicates a pain score of 0/10. MEDICAL/SURGICAL HISTORY: Diabetes. Hypertension. Chronic obstructive pulmonary disease. Cesa rean section. COMPARISON: No prior exams available for comparison. TECHNIQUE: Multiplanar, multisequence examination of the brain was performed without contrast. FINDINGS: No intracranial mass, hemorrhage or shift. No hydrocephalus. Mild chronic white matter ischemic chand es. Mild cortical volume loss. No recent infarct on the diffusion-weighted images. No abnormal extra- axial fluid collections. No sellar mass. CONCLUSION: 1. No acute findings. No recent infarct. Mild chronic white matter ischemic changes. Electronically signed by: Rolan Hernandez MD 07/23/2018 6:46 PM EDT
[2018-07-23 19:00] LABS: ABG Base Excess 2.1 mmol/L (-2-2); ABG PCO2 27 mmHg (38-42); ABG PO2 105 mmHg (61-120)
[2018-07-23] MEDS ORDERED: Acetaminophen 325 MG Tablet PO PRN (22:19)
[2018-07-23] MEDS ORDERED: Bisacodyl 10 MG Supp RECTAL PRN (22:19)
[2018-07-23] MEDS ORDERED: Polyethylene Glycol 3350 17 GM Packet PO PRN (22:22)
[2018-07-23] MEDS ORDERED: Dextrose 50% in Water 50 ML Vial IV.PUSH PRN (22:22)
--- NOTE | 2018-07-23 22:38 | P.HP ---
History of Present Illness Service: [facility] Primary Care Physician: UNKNOWN History of Present Illness: 83-year-old female with a past medical history of COPD, AVR, hypothyroidism, hypertension, diabetes and hyperlipidemia presents to the emergency department after an episode of dizziness and possible syncope. Per the patient's report she needed to use the restroom but was feeling weak. She had her daughter assist her to the toilet. She reports while sitting on the toilet she became dizzy. She then states she does not remember the following events. Her daughter states that she became unresponsive for several moments and diaphoretic. No seizure-like activity was observed. The patient reports she has not had a bowel movement since her discharge from the hospital on 07/18/18 where she was treated for a COPD exacerbation. On arrival to the emergency department a Dc catheter was placed, recovering 2 L of urine. No chest pain or shortness of breath. No abdominal pain. No nausea/diarrhea. No lateralizing signs/symptoms. No fevers/chills. Inpatient Certification: I certify that the inpatient services were ordered in accordance with Medicare regulations governing the order. 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 - Medical History Medical History: Medical History (Last Updated 07/23/18 @ 22:27 by Kecia Navarrete MD) Aortic valve regurgitation Back pain COPD (chronic obstructive pulmonary disease) Colitis Diabetes mellitus High cholesterol Hypertension Hypothyroidism - Surgical History Surgical History: Surgical History (Last Updated 07/23/18 @ 22:28 by Kecia aNvarrete MD) History of History of cataract surgery History of tonsillectomy - Family History Family History: Family History (Last Reviewed 07/23/18 @ 22:27 by Kecia Navarrete MD) Other CAD (coronary artery disease) Epilepsy - Tobacco History Second Hand Smoke Exposure: No Tobacco Use In Past 30 Days: No Smoking Status: Former smoker Tobacco Type: Cigarettes - Alcohol History How Often Do You Have a Drink Containing Alcohol: Never - Substance Use History Substance History: No History of Abuse - Travel History Recent Travel in the [place] Within the Last 8 Weeks: No Recent Travel Out of the Country Within the Last 8 Weeks: No - Immunization History Tetanus Immunization: Unsure Hx Influenza Vaccine This Season: Unable to Assess Medications and Allergies Active Medications: Active Medications Sodium Chloride (Ns Inj) 1,000 mls @ 70 mls/hr IV.CONT .[id number] JABIER Stop: 07/24/18 04:47 Last Admin: 07/23/18 15:34 Dose: 70 mls/hr Sodium Chloride (Ns Flush) 2 ml IV.FLUSH PRN PRN PRN Reason: FLUSH AFTER USING IV ACCESS Allergies Allergy/AdvReac Type Severity Reaction Status Date / Time Cephalosporins Allergy Intermediate Rash Verified 07/14/18 14:20 penicillin G Allergy Intermediate Rash Verified 07/14/18 13:18 Home Medications Medication Instructions Recorded Confirmed Type aspirin [Aspir-81] PO DAILY 07/14/18 History atorvastatin 10 mg PO DAILY 07/14/18 07/23/18 History calcium carbonate [Calcium 500] 1,000 mg PO DAILY 07/14/18 07/23/18 History cholecalciferol (vitamin D3) See Label Instructions .ROUTE 07/14/18 07/23/18 History [Vitamin D3] .COMPLEX cyanocobalamin (vitamin B-12) 500 mcg PO DAILY 07/14/18 07/23/18 History [Vitamin B-12] docusate sodium [Stool Softener] 50 mg PO DAILY 07/14/18 07/23/18 History enalapril maleate 20 mg PO BID 07/14/18 07/23/18 History ferrous sulfate, dried [iron] 65 mg PO DAILY 07/14/18 07/23/18 History gabapentin 300 mg PO TID 07/14/18 07/23/18 History lactobacillus combination no.4 3,000 mmu cells PO DAILY 07/14/18 07/23/18 History [Probiotic] latanoprost 1 drp OPHTHALMIC (EYE) QPM 07/14/18 07/23/18 History levothyroxine 88 mcg PO DAILY 07/14/18 07/23/18 History magnesium 600 mg PO BID 07/14/18 07/23/18 History metoprolol tartrate 50 mg PO BID 07/14/18 07/23/18 History multivitamin See Label Instructions .ROUTE 07/14/18 07/23/18 History .COMPLEX omega [id number] oil [Fish Oil] See Label Instructions .ROUTE 07/14/1807/23 History .COMPLEX polyethylene glycol 3350 [Miralax] 17 g PO DAILY PRN 07/14/18 07/23/18 History psyllium seed (with dextrose) 1.7 g PO DAILY 07/14/18 07/23/18 History [fiber] Exam Vital signs: Vital Signs 07/23/18 14:36 07/23/18 19:25 07/23/18 20:00 Temperature 97.9 F Pulse Rate 66 65 62 Respiratory Rate 20 18 18 Blood Pressure 139/80 125/59 L 105/60 Pulse Oximetry 96 100 100 07/23/18 21:00 07/23/18 22:00 Temperature Pulse Rate 64 60 Respiratory Rate 18 20 Blood Pressure 104/65 94/61 L Pulse Oximetry 100 100 Intake & Output 07/23/18 07/23/18 07/24/18 06:59 18:59 06:59 Intake Total 1200 / 1200 Balance 1200 / 1200 Weight 69.4 kg Intake: IV 1200 / 1200 Cipro 400 MG/200 ML Inj 400 mg 200 / 200 In 200 ml @ 200 mls/hr IV.SIG ONCE ONE Rx#:[id number] NS Inj 1,000 ML @ Wide Open IV. 1000 / 1000 SIG BOLUS ONE Rx#:[id number] Narrative: Gen.: No acute distress Head: Normocephalic. Atraumatic. EENT: Pupils equal round and reactive to light. Nose without drainage. Airway intact. Throat without injection. Cardiovascular: Regular rate and rhythm. No murmurs, rubs or gallops. Respiratory: Lungs clear to auscultation bilaterally. No wheezes or rhonchi. Abdomen: Soft, nontender, nondistended. No peritoneal signs. Musculoskeletal: No gross deformities. No edema. Skin: No obvious rashes or erythema. Neuro: Cranial nerves II through XII intact. Alert and oriented x3. 5/5 strength throughout. Results - Labs CBC & Chem 7: 07/23/18 14:50 07/23/18 15:20 Labs: Laboratory Results - last 24 hr 07/23/18 07/23/18 07/23/18 14:23 14:50 14:50 WBC 14.5 H RBC 4.04 Hgb 13.3 POC Hgb (Calc) Hct 39.7 POC Hct MCV 98.2 MCH 32.9 MCHC 33.5 RDW 12.8 Plt Count 257 MPV 8.1 Neut % (Auto) 73.7 H Lymph % (Auto) 18.7 [place] % (Auto) 7.0 Eos % (Auto) 0.4 Baso % (Auto) 0.2 Neut # (Auto) 10.7 H Lymph # (Auto) 2.7 [place] # (Auto) 1.0 H Eos # (Auto) 0.1 Baso # (Auto) 0.0 WBC Differential . Differential Comment Auto diff final PT 11.0 INR 1.1 APTT 21.2 L Puncture Site Patient Temperature O2 Saturation ABG pH ABG pCO2 ABG pO2 ABG HCO3 ABG O2 Content ABG Base Excess ABG Methemoglobin Ming Test Hemoglobin Carboxyhemoglobin O2 Delivery Device Liter Flow Critical Value POC Sodium Sodium POC Potassium Potassium POC Chloride Chloride Carbon Dioxide Anion Gap POC BUN BUN Creatinine POC Creatinine Estimated GFR POC Glucose 131 H Random Glucose Lactic Acid Calcium Total Bilirubin AST ALT Alkaline Phosphatase Total Creatine Kinase Troponin I Total Protein Albumin Urine Color Urine Clarity Urine pH Ur Specific [place] Urine Protein Urine Glucose (UA) Urine Ketones Urine Occult Blood Urine Nitrate Urine Bilirubin Urine Urobilinogen Ur Leukocyte Esterase Urine RBC Urine WBC Hyaline Casts Urine Mucus Micro UA Comment Ur Microscopic Review Urine Culture Comments 07/23/18 07/23/18 07/23/18 14:51 15:20 15:20 WBC RBC Hgb POC Hgb (Calc) 12.9 Hct POC Hct 38.0 MCV MCH MCHC RDW Plt Count MPV Neut % (Auto) Lymph % (Auto) [place] % (Auto) Eos % (Auto) Baso % (Auto) Neut # (Auto) Lymph # (Auto) [place] # (Auto) Eos # (Auto) Baso # (Auto) WBC Differential Differential Comment PT INR APTT Puncture Site Patient Temperature O2 Saturation ABG pH ABG pCO2 ABG pO2 ABG HCO3 ABG O2 Content ABG Base Excess ABG Methemoglobin Ming Test Hemoglobin Carboxyhemoglobin O2 Delivery Device Liter Flow Critical Value POC Sodium 128 L Sodium 127 L POC Potassium 4.1 Potassium 4.1 POC Chloride 87 L Chloride 91 L Carbon Dioxide 27.5 Anion Gap 9 POC BUN 28 H BUN 26 H Creatinine 1.30 H POC Creatinine 1.2 Estimated GFR 39 L POC Glucose 112 H Random Glucose 108 H Lactic Acid 2.3 H Calcium 8.9 Total Bilirubin 0.8 AST 28 ALT 32 Alkaline Phosphatase 47 Total Creatine Kinase 51 Troponin I Less than 0.02 L Total Protein 5.9 L Albumin 3.0 L Urine Color Urine Clarity Urine pH Ur Specific [place] Urine Protein Urine Glucose (UA) Urine Ketones Urine Occult Blood Urine Nitrate Urine Bilirubin Urine Urobilinogen Ur Leukocyte Esterase Urine RBC Urine WBC Hyaline Casts Urine Mucus Micro UA Comment Ur Microscopic Review Urine Culture Comments 07/23/18 07/23/18 15:40 18:50 WBC RBC Hgb POC Hgb (Calc) Hct POC Hct MCV MCH MCHC RDW Plt Count MPV Neut % (Auto) Lymph % (Auto) [place] % (Auto) Eos % (Auto) Baso % (Auto) Neut # (Auto) Lymph # (Auto) [place] # (Auto) Eos # (Auto) Baso # (Auto) WBC Differential Differential Comment PT INR APTT Puncture Site Right radial Patient Temperature 98.6 O2 Saturation 97 ABG pH 7.57 H* ABG pCO2 27 L ABG pO2 105 ABG HCO3 24 ABG O2 Content 18.3 ABG Base Excess 2.1 H ABG Methemoglobin 0.6 Ming Test Present Hemoglobin 13.3 Carboxyhemoglobin 1.2 O2 Delivery Device Nasal cannula Liter Flow 2.00 Critical Value Yes POC Sodium Sodium POC Potassium Potassium POC Chloride Chloride Carbon Dioxide Anion Gap POC BUN BUN Creatinine POC Creatinine Estimated GFR POC Glucose Random Glucose Lactic Acid Calcium Total Bilirubin AST ALT Alkaline Phosphatase Total Creatine Kinase Troponin I Total Protein Albumin Urine Color Straw Urine Clarity Clear Urine pH 8.0 Ur Specific [place] 1.010 Urine Protein Negative Urine Glucose (UA) Negative Urine Ketones Negative Urine Occult Blood Negative Urine Nitrate Negative Urine Bilirubin Negative Urine Urobilinogen Less than 2 Ur Leukocyte Esterase Negative Urine RBC Less than 1 Urine WBC Less than 1 Hyaline Casts 1 Urine Mucus Few H Micro UA Comment Cath-culture not ind Ur Microscopic Review Not Reportable Urine Culture Comments Cath-cult not ind - Imaging Impressions Head MRI 07/23/18 00:00 CONCLUSION: 1. No acute findings. No recent infarct. Mild chronic white matter ischemic changes. Chest X-Ray 07/23/18 14:20 CONCLUSION: No acute cardiopulmonary disease. Head CT 07/23/18 14:20 CONCLUSION: 1. No acute hemorrhage, midline shift or extra-axial fluid collections. 2. Mild cerebral atrophy and periventricular white matter small vessel ischemic changes bilaterally. 3. Scattered old tiny lacunar infarcts within the bilateral basal ganglia. Report was called by Dr. Rodríguez to Dr. Urbano at 3:09 PM on 07/23/2018. Head CTA 07/23/18 14:20 CONCLUSION: 1. No significant stenosis, occlusion or aneurysm. 2. Patent bilateral posterior communicating arteries with the left posterior cerebral artery supplied by the left posterior communicating artery. Neck CTA 07/23/18 14:20 CONCLUSION: 1. No significant carotid artery stenosis. 2. Patent bilateral vertebral arteries. Caprini VTE Risk Assessment Caprini VTE Risk Assessment: Moderate/High Risk (score >= 2) Caprini Risk Assessment Model: Point Value = 1 Point Value = 2 Point Value = 3 Point Value = 5 Age 41-60 Minor surgery BMI > 25 kg/m2 Swollen legs Varicose veins or History of unexplained or recurrent spontaneous Oral contraceptives or hormone replacement Sepsis (< 1 month) Serious lung disease, including pneumonia (< 1 month) Abnormal pulmonary function Acute myocardial infarction Congestive heart failure (< 1 month) History of inflammatory bowel disease Medical patient at bed rest Age 61-74 Arthroscopic surgery Major open surgery (> 45 min) Laparoscopic surgery (> 45 min) Malignancy Confined to bed (> 72 hours) Immobilizing plaster cast Central venous access Age >= 75 History of VTE Family history of VTE Factor V Leiden Prothrombin [id number] Lupus anticoagulant Anticardiolipin antibodies Elevated serum homocysteine Heparin-induced thrombocytopenia Other congenital or acquired thrombophilia Stroke (< 1 month) Elective arthroplasty Hip, pelvis, or leg fracture Acute spinal cord injury (< 1 month) Prophylaxis Regimen: Total Risk Factor Score Risk Level Prophylaxis Regimen 0-1 Low Early ambulation 2 Moderate Order ONE of the following: *Sequential Compression Device (SCD) *Heparin 5000 units SQ BID 3-4 Higher Order ONE of the following medications: *Heparin 5000 units SQ TID *Enoxaparin/Lovenox 40 mg SQ daily (WT < 150 kg, CrCl > 30 mL/min) *Enoxaparin/Lovenox 30 mg SQ daily (WT < 150 kg, CrCl > 10-29 mL/min) *Enoxaparin/Lovenox 30 mg SQ BID (WT < 150 kg, CrCl > 30 mL/min) AND/OR *Sequential Compression Device (SCD) 5 or more Highest Order ONE of the following medications: *Heparin 5000 units SQ TID (Preferred with Epidurals) *Enoxaparin/Lovenox 40 mg SQ daily (WT < 150 kg, CrCl > 30 mL/min) *Enoxaparin/Lovenox 30 mg SQ daily (WT < 150 kg, CrCl > 10-29 mL/min) *Enoxaparin/Lovenox 30 mg SQ BID (WT < 150 kg, CrCl > 30 mL/min) AND *Sequential Compression Device (SCD) Assessment and Plan - Plan Assessment/plan: 1. Altered mental status/? Syncope Concern for CVA, neurology consulted Head CT, MRI, head and neck CTA all negative Echo pending Orthostatics pending May have been vasovagal 2. COPD Duo nebs 3. Diabetes mellitus Sliding-scale insulin Monitor blood glucose 4. Hypertension/hyperlipidemia/hypothyroidism Continue home medications 5. Constipation MiraLAX FEN N.p.o. Electrolytes: Monitor and replete as needed NS at 70 cc/hour Heparin
[2018-07-24] MEDS: Sod Chloride 0.9% Inj 1,000 ML IV.CONT SCH (04:42)
[2018-07-24] MEDS: Levothyroxine 88 MCG Tablet PO SCH (06:36)
[2018-07-24 07:13] LABS: Baso % (Auto) 0.2 % (0.0-2.0); Eos # (Auto) 0.1 th/mm3 (0.0-0.4); Eos % (Auto) 0.6 % (0.0-4.0); Hematocrit 39.8 % (35.0-46.0); Hemoglobin 13.1 gm/dL (11.6-15.3); Lymph # (Auto) 4.4 th/mm3 (1.0-4.8); Lymph % (Auto) 27.4 % (9.0-44.0); Mean Corpuscular HGB Conc 32.8 % (32.0-36.0); Mean Corpuscular Hemoglobin 32.7 pg (27.0-34.0); Mean Corpuscular Volume 99.5 fL (80.0-100.0); Mean Platelet Volume 8.3 fL (7.0-11.0); Mono # (Auto) 1.4 th/mm3 (0.0-0.9); Mono % (Auto) 8.4 % (0.0-8.0); Neut # (Auto) 10.3 th/mm3 (1.8-7.7); Neut % (Auto) 63.4 % (16.0-70.0); Platelet Count 250 th/mm3 (150-450); Red Cell Distribution Width 12.3 % (11.6-17.2); White Blood Count 16.2 th/mm3 (4.0-11.0)
[2018-07-24 07:35] LABS: Calcium 9.5 mg/dL (8.5-10.1); Carbon Dioxide 30.6 meq/L (21.0-32.0); Potassium 4.4 meq/L (3.5-5.1)
--- NOTE | 2018-07-24 08:37 | P.PN ---
Subjective Interval history: Patient doing well overnight, reports that she is no longer confused. She feels ready to go home, her main concern is that she is still constipated and has not had a BM in the last few days, denies fever, chills, CP, and SOB. Physical Exam Vital signs: Vital Signs 07/23/18 14:36 07/23/18 19:25 07/23/18 20:00 Temperature 97.9 F Pulse Rate 66 65 62 Respiratory Rate 20 18 18 Blood Pressure 139/80 125/59 L 105/60 Pulse Oximetry 96 100 100 07/23/18 21:00 07/23/18 22:00 07/24/18 01:32 Temperature 97.7 F Pulse Rate 64 60 61 Respiratory Rate 18 20 16 Blood Pressure 104/65 94/61 L 133/70 Pulse Oximetry 100 100 99 07/24/18 03:08 07/24/18 04:00 07/24/18 08:00 Temperature 98 F 97.8 F Pulse Rate 58 L 59 L 57 L Respiratory Rate 17 16 Blood Pressure 120/56 L 115/63 Pulse Oximetry 100 100 Intake & Output 07/23/18 07/24/18 07/24/18 18:59 06:59 18:59 Intake Total 1200 / 1200 1000 / 1000 Output Total 750 / 750 Balance 1200 / 1200 250 / 250 Weight 69.4 kg 69.4 kg Intake: IV 1200 / 1200 1000 / 1000 NS Inj 1,000 ML @ 70 mls/hr IV. 1000 / 1000 CONT .[id number] [facility] Rx#:[id number] Cipro 400 MG/200 ML Inj 400 mg 200 / 200 In 200 ml @ 200 mls/hr IV.SIG ONCE ONE Rx#:[id number] NS Inj 1,000 ML @ Wide Open IV. 1000 / 1000 SIG BOLUS ONE Rx#:[id number] Output: Urine Amount (Catheter) 750 / 750 Indwelling Urethral Catheter 750 / 750 Other: Date of Last Bowel Movement 07/18/18 Weight On Admission 69.4 kg Narrative: GENERAL: thin, female, in NAD. SKIN: Warm and dry. HEAD: Normocephalic. EYES: No scleral icterus. No injection or drainage. NECK: Supple, trachea midline. No JVD or lymphadenopathy. CARDIOVASCULAR: Regular rate and rhythm without murmurs, gallops, or rubs. RESPIRATORY: Breath sounds equal bilaterally. No accessory muscle use. GASTROINTESTINAL: Abdomen soft, non-tender, nondistended. MUSCULOSKELETAL: No cyanosis, or edema. BACK: Nontender without obvious deformity. No CVA tenderness. NEURO: AAOX3, motor system 5/5, sensation intact to light touch, CN 2-12 intact. - Urinary Catheter Management Indwelling Urethral Catheter Cath placed during this visit: yes Reason for continuing: Acute urinary retention Insertion date: 07/23/18 Insertion time: 15:25 Results - Labs CBC & Chem 7: 07/24/18 06:41 07/24/18 06:41 Laboratory Results - last 24 hr 07/23/18 07/23/18 07/23/18 14:23 14:50 14:50 WBC 14.5 H RBC 4.04 Hgb 13.3 POC Hgb (Calc) Hct 39.7 POC Hct MCV 98.2 MCH 32.9 MCHC 33.5 RDW 12.8 Plt Count 257 MPV 8.1 Neut % (Auto) 73.7 H Lymph % (Auto) 18.7 [place] % (Auto) 7.0 Eos % (Auto) 0.4 Baso % (Auto) 0.2 Neut # (Auto) 10.7 H Lymph # (Auto) 2.7 [place] # (Auto) 1.0 H Eos # (Auto) 0.1 Baso # (Auto) 0.0 WBC Differential . Differential Comment Auto diff final PT 11.0 INR 1.1 APTT 21.2 L Puncture Site Patient Temperature O2 Saturation ABG pH ABG pCO2 ABG pO2 ABG HCO3 ABG O2 Content ABG Base Excess ABG Methemoglobin Ming Test Hemoglobin Carboxyhemoglobin O2 Delivery Device Liter Flow Critical Value POC Sodium Sodium POC Potassium Potassium POC Chloride Chloride Carbon Dioxide Anion Gap POC BUN BUN Creatinine POC Creatinine Estimated GFR POC Glucose 131 H Random Glucose Lactic Acid Calcium Total Bilirubin AST ALT Alkaline Phosphatase Total Creatine Kinase Troponin I Total Protein Albumin Urine Color Urine Clarity Urine pH Ur Specific [place] Urine Protein Urine Glucose (UA) Urine Ketones Urine Occult Blood Urine Nitrate Urine Bilirubin Urine Urobilinogen Ur Leukocyte Esterase Urine RBC Urine WBC Hyaline Casts Urine Mucus Micro UA Comment Ur Microscopic Review Urine Culture Comments 07/23/18 07/23/18 07/23/18 14:51 15:20 15:20 WBC RBC Hgb POC Hgb (Calc) 12.9 Hct POC Hct 38.0 MCV MCH MCHC RDW Plt Count MPV Neut % (Auto) Lymph % (Auto) [place] % (Auto) Eos % (Auto) Baso % (Auto) Neut # (Auto) Lymph # (Auto) [place] # (Auto) Eos # (Auto) Baso # (Auto) WBC Differential Differential Comment PT INR APTT Puncture Site Patient Temperature O2 Saturation ABG pH ABG pCO2 ABG pO2 ABG HCO3 ABG O2 Content ABG Base Excess ABG Methemoglobin Ming Test Hemoglobin Carboxyhemoglobin O2 Delivery Device Liter Flow Critical Value POC Sodium 128 L Sodium 127 L POC Potassium 4.1 Potassium 4.1 POC Chloride 87 L Chloride 91 L Carbon Dioxide 27.5 Anion Gap 9 POC BUN 28 H BUN 26 H Creatinine 1.30 H POC Creatinine 1.2 Estimated GFR 39 L POC Glucose 112 H Random Glucose 108 H Lactic Acid 2.3 H Calcium 8.9 Total Bilirubin 0.8 AST 28 ALT 32 Alkaline Phosphatase 47 Total Creatine Kinase 51 Troponin I Less than 0.02 L Total Protein 5.9 L Albumin 3.0 L Urine Color Urine Clarity Urine pH Ur Specific [place] Urine Protein Urine Glucose (UA) Urine Ketones Urine Occult Blood Urine Nitrate Urine Bilirubin Urine Urobilinogen Ur Leukocyte Esterase Urine RBC Urine WBC Hyaline Casts Urine Mucus Micro UA Comment Ur Microscopic Review Urine Culture Comments 07/23/18 07/23/18 07/24/18 15:40 18:50 06:41 WBC 16.2 H RBC 4.00 Hgb 13.1 POC Hgb (Calc) Hct 39.8 POC Hct MCV 99.5 MCH 32.7 MCHC 32.8 RDW 12.3 Plt Count 250 MPV 8.3 Neut % (Auto) 63.4 Lymph % (Auto) 27.4 [place] % (Auto) 8.4 H Eos % (Auto) 0.6 Baso % (Auto) 0.2 Neut # (Auto) 10.3 H Lymph # (Auto) 4.4 [place] # (Auto) 1.4 H Eos # (Auto) 0.1 Baso # (Auto) 0.0 WBC Differential . Differential Comment Auto diff final PT INR APTT Puncture Site Right radial Patient Temperature 98.6 O2 Saturation 97 ABG pH 7.57 H* ABG pCO2 27 L ABG pO2 105 ABG HCO3 24 ABG O2 Content 18.3 ABG Base Excess 2.1 H ABG Methemoglobin 0.6 Ming Test Present Hemoglobin 13.3 Carboxyhemoglobin 1.2 O2 Delivery Device Nasal cannula Liter Flow 2.00 Critical Value Yes POC Sodium Sodium POC Potassium Potassium POC Chloride Chloride Carbon Dioxide Anion Gap POC BUN BUN Creatinine POC Creatinine Estimated GFR POC Glucose Random Glucose Lactic Acid Calcium Total Bilirubin AST ALT Alkaline Phosphatase Total Creatine Kinase Troponin I Total Protein Albumin Urine Color Straw Urine Clarity Clear Urine pH 8.0 Ur Specific [place] 1.010 Urine Protein Negative Urine Glucose (UA) Negative Urine Ketones Negative Urine Occult Blood Negative Urine Nitrate Negative Urine Bilirubin Negative Urine Urobilinogen Less than 2 Ur Leukocyte Esterase Negative Urine RBC Less than 1 Urine WBC Less than 1 Hyaline Casts 1 Urine Mucus Few H Micro UA Comment Cath-culture not ind Ur Microscopic Review Not Reportable Urine Culture Comments Cath-cult not ind 07/24/18 06:41 WBC RBC Hgb POC Hgb (Calc) Hct POC Hct MCV MCH MCHC RDW Plt Count MPV Neut % (Auto) Lymph % (Auto) [place] % (Auto) Eos % (Auto) Baso % (Auto) Neut # (Auto) Lymph # (Auto) [place] # (Auto) Eos # (Auto) Baso # (Auto) WBC Differential Differential Comment PT INR APTT Puncture Site Patient Temperature O2 Saturation ABG pH ABG pCO2 ABG pO2 ABG HCO3 ABG O2 Content ABG Base Excess ABG Methemoglobin Ming Test Hemoglobin Carboxyhemoglobin O2 Delivery Device Liter Flow Critical Value POC Sodium Sodium 137 D POC Potassium Potassium 4.4 POC Chloride Chloride 98 Carbon Dioxide 30.6 Anion Gap 8 POC BUN BUN 26 H Creatinine 1.18 H POC Creatinine Estimated GFR 44 L POC Glucose Random Glucose 92 Lactic Acid Calcium 9.5 Total Bilirubin AST ALT Alkaline Phosphatase Total Creatine Kinase Troponin I Total Protein Albumin Urine Color Urine Clarity Urine pH Ur Specific [place] Urine Protein Urine Glucose (UA) Urine Ketones Urine Occult Blood Urine Nitrate Urine Bilirubin Urine Urobilinogen Ur Leukocyte Esterase Urine RBC Urine WBC Hyaline Casts Urine Mucus Micro UA Comment Ur Microscopic Review Urine Culture Comments - Imaging Impressions Head MRI 07/23/18 00:00 CONCLUSION: 1. No acute findings. No recent infarct. Mild chronic white matter ischemic changes. Chest X-Ray 07/23/18 14:20 CONCLUSION: No acute cardiopulmonary disease. Head CT 07/23/18 14:20 CONCLUSION: 1. No acute hemorrhage, midline shift or extra-axial fluid collections. 2. Mild cerebral atrophy and periventricular white matter small vessel ischemic changes bilaterally. 3. Scattered old tiny lacunar infarcts within the bilateral basal ganglia. Report was called by Dr. Rodríguez to Dr. Urbano at 3:09 PM on 07/23/2018. Head CTA 07/23/18 14:20 CONCLUSION: 1. No significant stenosis, occlusion or aneurysm. 2. Patent bilateral posterior communicating arteries with the left posterior cerebral artery supplied by the left posterior communicating artery. Neck CTA 07/23/18 14:20 CONCLUSION: 1. No significant carotid artery stenosis. 2. Patent bilateral vertebral arteries. Assessment and Plan - Plan 83 y/o CF with PMHX of DM, HTN, and HLD admitted for AMS and possible TIA, HD#2 1. Altered mental status/Syncope- resolved this AM likely due to Hyponatremia Na 127 on admission, 137 today after NS Due to initial concern for CVA/TIA, neurology consulted Head CT, MRI, head and neck CTA all negative Echo and EEG pending 2. Hyponatremia- see above. 3. COPD- Neg CXR, on 2L o2 at home Cont. Duo nebs 4. Diabetes mellitus Cont. Sliding-scale insulin and Gabapentin Will cont. to monitor blood glucose 5. Hypertension/hyperlipidemia/hypothyroidism Continue home medications- BB, LACIE, statin, and Levo 6. Constipation Cont. MiraLAX and docusate 7. CKD- at baseline per patient, Creat 1.18 from 1.30 on admission, avoid nephrotoxic meds 8. Leukocytosis: WBC 16.1 from 14.5 on admission, likely due to recent steroid dose pack for COPD exacerbation last week, no signs of infection, afebrile. 9. DVT PPX: cont. Hep 10. DISPO: D/C pending Echo and EEG results Discussed Condition With: patient Discharge Planning: D/C pending Echo and EEG results
[2018-07-24] MEDS: Magnesium Oxide 400 MG Tablet PO SCH ×3 (08:53→18:49)
[2018-07-24] MEDS: Docusate Sodium Liq 100 MG/10 ML UDC PO SCH (08:53)
[2018-07-24] MEDS: Metoprolol Tartrate 50 MG Tablet PO SCH ×2 (08:54→21:16)
[2018-07-24] MEDS: Gabapentin 300 MG Capsule PO SCH ×3 (08:54→18:49)
[2018-07-24] MEDS: Ferrous Sulfate 325 MG Tablet PO SCH (08:54)
[2018-07-24] MEDS: Heparin - SQ 10,000 UNITS/ML Vial SQ SCH ×2 (08:54→21:20)
[2018-07-24] MEDS: guaiFENesin 600 MG ER Tablet PO SCH ×2 (08:54→21:20)
[2018-07-24] MEDS: Insulin NovoLOG Aspart Correctional Sugar Inj SQ SCH ×4 (08:54→20:42)
[2018-07-24] MEDS ORDERED: Magnesium Oxide 400 MG Tablet PO SCH (09:00)
--- NOTE | 2018-07-24 13:32 | ECHRPT ---
Indication: CVA / TIA CONCLUSIONS Normal left ventricular size. Wall thickness is normal. The left ventricular systolic function is normal with an estimated ejection fraction in the range of 55-60%. Trace mitral valve regurgitation. There is mild tricuspid valve regurgitation. The estimated pulmonary arterial pressure is 65 mmHg. Trivial pulmonary valve regurgitation. BP: / HR: Rhythm: MEASUREMENTS (Male / Female) Normal Values Technical Quality:Fair 2D ECHO LV Diastolic Diameter PLAX 4.1 cm 4.2 - 5.9 / 3.9 - 5.3 cm LV Systolic Diameter PLAX 2.7 cm IVS Diastolic Thickness 1.0 cm 0.6 - 1.0 / 0.6 - 0.9 cm LVPW Diastolic Thickness 1.0 cm 0.6 - 1.0 / 0.6 - 0.9 cm LV Relative Wall Thickness 0.5 LVOT Diameter 1.9 cm Aortic Root Diameter 2.7 cm LA Systolic Diameter LX 2.9 cm 3.0 - 4.0 / 2.7 - 3.8 cm M-MODE AV Cusp Separation MM 1.9 cm DOPPLER AV Peak Velocity 172.0 cm/s AV Peak Gradient 11.8 mmHg LVOT Peak Velocity 106.0 cm/s LVOT Peak Gradient 4.5 mmHg AV Area Cont Eq pk 1.7 cm Mitral E Point Velocity 51.2 cm/s Mitral A Point Velocity 80.2 cm/s Mitral E to A Ratio 0.6 LV E' Lateral Velocity 9.5 cm/s Mitral E to LV E' Lateral Ratio 5.4 LV E' Septal Velocity 6.2 cm/s Mitral E to LV E' Septal Ratio 8.2 TR Peak Velocity 353.5 cm/s TR Peak Gradient 50.0 mmHg Right Atrial Pressure 15.0 mmHg Pulmonary Artery Systolic Pressu 65.0 mmHg Right Ventricular Systolic Press 65.0 mmHg PV Peak Velocity 53.7 cm/s PV Peak Gradient 1.2 mmHg FINDINGS LEFT VENTRICLE Normal left ventricular size. Wall thickness is normal. The left ventricular systolic function is normal with an estimated ejection fraction in the range of 55-60%. RIGHT VENTRICLE Normal right ventricular size and systolic function. LEFT ATRIUM The left atrial size is normal. RIGHT ATRIUM The right atrial size is normal. ATRIAL SEPTUM Normal atrial septal thickness without atrial level shunting by limited color doppler interrogation. AORTA The aortic root and proximal ascending aorta are normal in size on limited imaging. MITRAL VALVE Trace mitral valve regurgitation. AORTIC VALVE Trileaflet aortic valve. TRICUSPID VALVE There is mild tricuspid valve regurgitation. The estimated pulmonary arterial pressure is 65 mmHg. PULMONARY VALVE Trivial pulmonary valve regurgitation. VESSELS The inferior vena cava is normal in size. PERICARDIUM No pericardial effusion. Sudeep Paredes MD, FACC (Electronically Signed) Final Date:24 July 2018 13:31
[2018-07-24] MEDS ORDERED: Latanoprost 0.005% Opth Drops 2.5 ML Bottle EACH EYE SCH (21:00)
[2018-07-25] MEDS: Heparin - SQ 10,000 UNITS/ML Vial SQ SCH ×2 (00:23→10:54)
[2018-07-25 05:17] LABS: Hematocrit 36.3 % (35.0-46.0); Mean Corpuscular HGB Conc 32.9 % (32.0-36.0); Mean Corpuscular Hemoglobin 32.9 pg (27.0-34.0); Mean Platelet Volume 8.4 fL (7.0-11.0); Platelet Count 204 th/mm3 (150-450); Red Blood Count 3.63 mil/mm3 (4.00-5.30); Red Cell Distribution Width 12.6 % (11.6-17.2); White Blood Count 12.5 th/mm3 (4.0-11.0)
[2018-07-25 05:45] LABS: Potassium 4.2 meq/L (3.5-5.1)
[2018-07-25 06:20] LABS: Calcium 8.5 mg/dL (8.5-10.1); Carbon Dioxide 25.4 meq/L (21.0-32.0)
--- NOTE | 2018-07-25 07:26 | P.PN ---
Subjective Interval history: Patient doing well, reports that she is back to baseline and is no longer confused. F,V,S well. No overnight concerns. Physical Exam Vital signs: Vital Signs 07/24/18 08:00 07/24/18 08:42 07/24/18 09:05 Temperature 97.8 F Pulse Rate 57 L 59 L 61 Respiratory Rate 16 16 Blood Pressure 115/63 Pulse Oximetry 98 98 07/24/18 12:00 07/24/18 13:05 07/24/18 16:00 Temperature 98.0 F 97.7 F Pulse Rate 55 L 55 L 58 L Respiratory Rate 16 16 16 Blood Pressure 94/54 L 140/67 Pulse Oximetry 93 L 97 07/24/18 20:00 07/24/18 20:05 07/24/18 23:51 Temperature 97.6 F 97.5 F L Pulse Rate 60 57 L 50 L Respiratory Rate 18 16 17 Blood Pressure 111/65 94/50 L Pulse Oximetry 100 97 100 07/25/18 00:00 07/25/18 04:00 Temperature 98.1 F Pulse Rate 56 L 56 L Respiratory Rate 17 Blood Pressure 90/55 L Pulse Oximetry Intake & Output 07/24/18 07/25/18 07/25/18 18:59 06:59 18:59 Intake Total 1000 / 1000 Output Total 100 / 100 Balance 900 / 900 Intake: IV 1000 / 1000 Output: Urine 100 / 100 Other: # Voids 1 Date of Last Bowel Movement 07/24/18 Narrative: GENERAL: thin, female, in NAD. SKIN: Warm and dry. HEAD: Normocephalic. EYES: No scleral icterus. No injection or drainage. NECK: Supple, trachea midline. No JVD or lymphadenopathy. CARDIOVASCULAR: Regular rate and rhythm without murmurs, gallops, or rubs. RESPIRATORY: Breath sounds equal bilaterally. No accessory muscle use. GASTROINTESTINAL: Abdomen soft, non-tender, nondistended. MUSCULOSKELETAL: No cyanosis, or edema. BACK: Nontender without obvious deformity. No CVA tenderness. NEURO: AAOX3, motor system 5/5, sensation intact to light touch, CN 2-12 intact. - Urinary Catheter Management Indwelling Urethral Catheter Cath placed during this visit: yes, but has since been removed by the nurse Reason for continuing: Decision to DC catheter Insertion date: 09/20/18 Insertion time: 15:25 Removal date: 07/24/18 Removal time: 11:30 Results - Labs CBC & Chem 7: 07/25/18 04:30 07/25/18 04:30 Laboratory Results - last 24 hr 07/24/18 07/24/18 07/24/18 06:41 12:34 17:50 WBC RBC Hgb Hct MCV MCH MCHC RDW Plt Count MPV Sodium 137 D Potassium 4.4 Chloride 98 Carbon Dioxide 30.6 Anion Gap 8 BUN 26 H Creatinine 1.18 H Estimated GFR 44 L POC Glucose 89 77 Random Glucose 92 Calcium 9.5 07/24/18 07/25/18 07/25/18 20:41 04:30 04:30 WBC 12.5 H RBC 3.63 L Hgb 12.0 Hct 36.3 MCV 100.0 MCH 32.9 MCHC 32.9 RDW 12.6 Plt Count 204 MPV 8.4 Sodium 135 L Potassium 4.2 Chloride 99 Carbon Dioxide 25.4 Anion Gap 11 BUN 27 H Creatinine 1.34 H Estimated GFR 38 L POC Glucose 90 Random Glucose 77 Calcium 8.5 D Microbiology 07/23/18 16:29 Blood - Peripheral Aerobic Blood Culture - Preliminary No growth in 1 day 07/23/18 16:29 Blood - Peripheral Anaerobic Blood Culture - Preliminary No growth in 1 day 07/23/18 16:05 Blood - Peripheral Aerobic Blood Culture - Preliminary No growth in 1 day 07/23/18 16:05 Blood - Peripheral Anaerobic Blood Culture - Preliminary No growth in 1 day Assessment and Plan - Assessment (1) Hyponatremia Code(s): E87.1 - Hypo-osmolality and hyponatremia Status: Acute (2) Altered mental status Code(s): R41.82 - Altered mental status, unspecified Status: Acute - Plan 83 y/o CF with PMHX of DM, HTN, and HLD admitted for AMS and possible TIA, HD#3 1. Altered mental status/Syncope- resolved Due to Hyponatremia Na 127 on admission, 135 today after NS Due to initial concern for CVA/TIA, neurology consulted Head CT, MRI, head and neck CTA all negative EEG WNL Stable to D/C Echo results- Normal left ventricular size. Wall thickness is normal. The left ventricular systolic function is normal with an estimated ejection fraction in the range of 55-60%. Trace mitral valve regurgitation. There is mild tricuspid valve regurgitation. The estimated pulmonary arterial pressure is 65 mmHg. Trivial pulmonary valve regurgitation. 2. Hyponatremia- see above. 3. COPD- Neg CXR, on 2L o2 at home Cont. Duo nebs 4. Diabetes mellitus Resume home meds upon D/C 5. Hypertension/hyperlipidemia/hypothyroidism Continue home medications- BB, LACIE, statin, and Levo 6. Constipation Cont. MiraLAX and docusate 7. CKD- at baseline per patient, Creat 1.34 this AM from 1.18 yesterday. Avoid nephrotoxic meds 8. Leukocytosis: improving, WBC 12.5 today from 16.1, likely due to recent steroid dose pack for COPD exacerbation last week, no signs of infection, afebrile. DISPO: D/C home Discharge patient to home Condition on discharge: Improved Diabetic Diet as tolerated Ad Daly activity Rx written: N/A Follow-up with primary care physician in 1wk No D/C summary as <48hr stay. Code Status: full Discussed Condition With: patient and pot filler Planning: D/C pending Echo and EEG results
--- NOTE | 2018-07-25 08:17 | MG ---
cc: Leonid Rob MD EEG RECORD: #[id number]. FINDINGS: Posterior rhythm demonstrates 6-8 Hz activity, 10-30 mV with increased fast frequencies and myogenic artifact occurring on movement artifact. Driving noted with photic stimulation. Single lead EKG showing sinus rhythm. INTERPRETATION: Normal appearing, awake and drowsy EEG with significant amount of myogenic and eye movement artifact. Clinical correlation. Leonid Rob MD MG/rh , 06:58 AM , 07:02 AM
[2018-07-25] MEDS: Insulin NovoLOG Aspart Correctional Sugar Inj SQ SCH (10:51)
[2018-07-25] MEDS: guaiFENesin 600 MG ER Tablet PO SCH (10:52)
[2018-07-25] MEDS: Ferrous Sulfate 325 MG Tablet PO SCH (10:52)
[2018-07-25] MEDS: Gabapentin 300 MG Capsule PO SCH (10:53)
[2018-07-25] MEDS: Magnesium Oxide 400 MG Tablet PO SCH (10:53)
[2018-07-25] MEDS: Metoprolol Tartrate 50 MG Tablet PO SCH ×2 (10:54→11:00)
[2018-07-25] MEDS: Levothyroxine 88 MCG Tablet PO SCH (11:00)
[2018-07-25] MEDS: Docusate Sodium Liq 100 MG/10 ML UDC PO SCH (11:01)
[2018-07-25 11:56] VITALS: BP 127/67; PULSE 66; RESP 18; TEMP 98.4; O2SAT 100
--- NOTE | 2018-07-25 13:12 | ECG ---
Date Performed: 07/23/2018 Time Performed: 19:15:50 PTAGE: 83 years EKG: Sinus rhythm NORMAL ECG PREVIOUS TRACING : 07/23/2018 14.21 Since the previous tracing, no significant change noted DOCTOR: William Rivas Interpretating Date/Time 07/25/2018 13:11:25
--- NOTE | 2018-07-25 13:32 | ECG ---
Date Performed: 07/23/2018 Time Performed: 14:21:23 PTAGE: 83 years EKG: Sinus rhythm MINIMAL ST DEPRESSIONS PREVIOUS TRACING : 07/14/2018 15.37 Since the previous tracing, no significant change not ed DOCTOR: William Rivas Interpretating Date/Time 07/25/2018 13:31:43
[2018-07-25] MEDS ORDERED: Gabapentin 300 MG Capsule PO SCH (21:00)
== END 2018-07-25 17:04 | disposition home or self-care (01) ==
LOC: NEPC 14:14 → INTOOBSV 20:34 → NEDA 20:34 → NEPHCDU 07-24 01:11
PROVIDERS: ADMIT Family Medicine; ATTEND Family Medicine

== ENCOUNTER 2018-08-03 10:16 | Inpatient (IN) ==
[2018-08-03] MEDS ORDERED: dilTIAZem Inj 125 MG in Sodium Chlor 0.9% Inj 100 ML IV.CONT PRN (10:26)
[2018-08-03] MEDS: Sod Chloride 0.9% Inj 1,000 ML IV.SIG SCH ×2 (10:50→22:46)
[2018-08-03 10:54] LABS: Baso % (Auto) 0.4 % (0.0-2.0); Eos # (Auto) 0.1 th/mm3 (0.0-0.4); Hematocrit 38.7 % (35.0-46.0); Lymph # (Auto) 1.6 th/mm3 (1.0-4.8); Lymph % (Auto) 18.4 % (9.0-44.0); Mean Corpuscular HGB Conc 33.5 % (32.0-36.0); Mean Corpuscular Hemoglobin 33.3 pg (27.0-34.0); Mean Corpuscular Volume 99.4 fL (80.0-100.0); Mono # (Auto) 0.5 th/mm3 (0.0-0.9); Mono % (Auto) 6.4 % (0.0-8.0); Neut # (Auto) 6.3 th/mm3 (1.8-7.7); Neut % (Auto) 73.8 % (16.0-70.0); Platelet Count 164 th/mm3 (150-450); Red Blood Count 3.89 mil/mm3 (4.00-5.30); Red Cell Distribution Width 12.6 % (11.6-17.2); White Blood Count 8.5 th/mm3 (4.0-11.0)
[2018-08-03 11:12] LABS: Activated Partial Thrombo Time 25.2 sec (24.3-30.1); Prothrombin Time 10.5 sec (9.8-11.6)
[2018-08-03 11:16] LABS: Phosphorus 1.5 mg/dL (2.5-4.9); Troponin I 0.04 ng/mL (0.02-0.05)
[2018-08-03 11:17] LABS: Creatine Kinase 112 U/L (26-192); Magnesium 1.2 mg/dL (1.5-2.5)
[2018-08-03 11:30] LABS: Creatine Kinase MB 1.2 ng/mL (0.5-3.6)
--- NOTE | 2018-08-03 11:33 | XR ---
EXAM DATE: 08/03/2018 10:27 AM EDT AGE/SEX: 83 years / Female INDICATIONS: Weakness, altered mental status, fever, short of breath CLINICAL DATA: This is the patient's initial encounter. Patient reports that signs and symptoms have been present for 1 day and indicates a pain score of 4/10. MEDICAL/SURGICAL HISTORY: Non-responsive. Non-responsive. COMPARISON: [facility] [place] 1[place] SING[place] AP, [place]/23/2018. . FINDINGS: Prominent right hilum. Left lung clear. The heart and pulmonary vascularity are normal. Degenerative changes about both shoulders. CONCLUSION: Prominent right hilum otherwise negative. CT scan with contrast may be of benefit. Electronically signed by: Franklin Goldsmith MD 08/03/2018 11:31 AM EDT
--- NOTE | 2018-08-03 11:38 | CT ---
EXAM DATE: 08/03/2018 10:58 AM EDT AGE/SEX: 83 years / Female INDICATIONS: Altered mental status and general weakness. CLINICAL DATA: This is the patient's initial encounter. Patient reports that signs and symptoms have been present for 1 day and indicates a pain score of 2/10. MEDICAL/SURGICAL HISTORY: Cardiovascular disease. Chronic obstructive pulmonary disease. Diabetes . None. RADIATION DOSE: 47.50 CTDI (mGy) COMPARISON: [facility] – [place], [place] HEAD W/O CONTRAST, 07/23/2018. . TECHNIQUE: CT of the head without contrast. Using automated exposure control and adjustment of the mA and/or kV according to patient size, radiation dose was kept as low as reasonably achievable to ob tain optimal diagnostic quality images. DICOM format image data is available electronically for revi ew and comparison. FINDINGS: Cerebrum: The ventricles are normal for age. No evidence of midline shift, mass lesion, hemorrhage or acute infarction. No extraaxial fluid collections are seen. Posterior Fossa: The cerebellum and brainstem are intact. The 4th ventricle is midline. The cerebe llopontine angle is unremarkable. Extracranial: The visualized portion of the orbits is intact. Skull: The calvaria is intact. No evidence of skull fracture. CONCLUSION: 1. Negative for an acute process. . Electronically signed by: Franklin Goldsmith MD 08/03/2018 11:37 AM EDT
[2018-08-03 11:39] LABS: Bilirubin,Urine Negative (Negative); Clarity,Urine Clear (Clear); Color,Urine Straw (Yellw/Straw); Glucose,Urine (UA) Negative (Negative); Hyaline Casts,Urine 1 /lpf (0-3); Leukocyte Esterase,Urine Negative (Negative); Nitrite,Urine Negative (Negative); Specific Gravity,Urine 1.005 (1.002-1.035)
--- NOTE | 2018-08-03 13:35 | ED ---
HPI General Chief complaint: Weakness Stated complaint: Weakness Time Seen by Provider: 08/03/18 10:26 Source: patient and EMS Mode of arrival: EMS Limitations: no limitations History of Present Illness HPI Narrative: 83-year-old female complaint generalized malaise and weakness. Patient came from home. EMS was called. States that she has mild aching headache. Patient denies any visual change. Patient denies any neck pain. Patient complained of mild achiness in the chest. Patient complains of shortness of breath. Patient states that she feeling shaky. Patient states that she noticed her urine is dark this morning. Patient complained of mild cramping on abdomen. Patient complaint generalized malaise and weakness. Patient denies any dysuria frequency. Patient denies any fever chills. Patient states her symptoms started this morning. Patient was admitted to [facility] July 23 and discharge July 25 with diagnosis of hyponatremia, altered mental status, COPD, diabetes, hypertension, hyperlipidemia, hypothyroidism, chronic kidney disease. Related Data Home Medications Medication Instructions Recorded Confirmed aspirin [Aspir-81] 81 mg PO DAILY 07/14/18 08/03/18 atorvastatin 10 mg PO DAILY 07/14/18 08/03/18 calcium carbonate [Calcium 500] 1,000 mg PO DAILY 07/14/18 08/03/18 cholecalciferol (vitamin D3) See Label Instructions .ROUTE 07/14/18 08/03/18 [Vitamin D3] .COMPLEX cyanocobalamin (vitamin B-12) 500 mcg PO DAILY 07/14/18 08/03/18 [Vitamin B-12] docusate sodium [Stool Softener] 50 mg PO DAILY 07/14/18 08/03/18 enalapril maleate 20 mg PO BID 07/14/18 08/03/18 ferrous sulfate, dried [iron] 65 mg PO DAILY 07/14/18 08/03/18 gabapentin 300 mg PO TID 07/14/18 08/03/18 lactobacillus combination no.4 3,000 mmu cells PO DAILY 07/14/18 08/03/18 [Probiotic] latanoprost 1 drp OPHTHALMIC (EYE) QPM 07/14/18 08/03/18 levothyroxine 88 mcg PO DAILY 07/14/18 08/03/18 magnesium 600 mg PO BID 07/14/18 08/03/18 metoprolol tartrate 50 mg PO BID 07/14/18 08/03/18 multivitamin See Label Instructions .ROUTE 07/14/18 08/03/18 .COMPLEX omega 3-oof-qco-fish oil [Fish Oil] See Label Instructions .ROUTE 07/14/1808/03 .COMPLEX polyethylene glycol 3350 [Miralax] 17 g PO DAILY PRN 07/14/18 08/03/18 psyllium seed (with dextrose) 1.7 g PO DAILY 07/14/18 08/03/18 [fiber] Previous Rx's Medication Instructions Recorded guaifenesin [Mucinex] 600 mg PO BID #14 tab 07/18/18 ipratropium-albuterol 1 amp NEB Q6HR WHILE AWAKE NEB #1 07/18/18 box levofloxacin [Levaquin] 750 mg PO Q48H #4 tab 07/18/18 prednisone 5 mg PO DIRECTED #21 tab 07/18/18 Allergies Allergy/AdvReac Type Severity Reaction Status Date / Time Cephalosporins Allergy Intermediate Rash Verified 08/03/18 10:27 penicillin G Allergy Intermediate Rash Verified 08/03/18 10:27 Review of Systems ROS: all other systems reviewed are negative PMFSH Medical History Medical History Aortic valve regurgitation (Acute) Back pain (Acute) COPD (chronic obstructive pulmonary disease) (Acute) Colitis (Acute) Diabetes mellitus (Acute) High cholesterol (Acute) Hypertension (Acute) Hypothyroidism (Acute) Surgical History Surgical History History of (Acute) History of cataract surgery (Acute) History of tonsillectomy (Acute) Family History Family History Other CAD (coronary artery disease) Epilepsy Social History Social History Substance History: No History of Abuse Second Hand Smoke Exposure: No Smoking Status: Never smoker Tobacco Type: Cigarettes How Often Do You Have a Drink Containing Alcohol: Never Recent Travel [facility] within the Last 8 Weeks: No Recent Out of Country Travel within the Last 8 Weeks: No Immunization History Tetanus Immunization: >5 Years Hx Influenza Vaccine This Season: Yes Exam Narrative Exam Narrative: GENERAL: Well-nourished, well-developed patient. SKIN: Focused skin assessment warm/dry. HEAD: Normocephalic. EYES: No scleral icterus. No injection or drainage. NECK: Supple, trachea midline. No JVD or lymphadenopathy. CARDIOVASCULAR: Irregularly irregular rate and rhythm without murmurs, gallops, or rubs. RESPIRATORY: Breath sounds equal bilaterally. No accessory muscle use. GASTROINTESTINAL: Abdomen soft, non-tender, nondistended. MUSCULOSKELETAL: No cyanosis, or edema. BACK: Nontender without obvious deformity. No CVA tenderness. Neurologic exam: Patient is lethargic however answer questions appropriately. Patient moves all extremity well. No obvious focal neurological deficit. Course Initial Documented Vital Signs Temperature 97.4 F L 08/03/18 10:22 Respiratory Rate 22 08/03/18 10:22 Blood Pressure 135/82 08/03/18 10:22 Pulse Oximetry 95 08/03/18 10:22 Last Documented Vital Signs Temperature 97.4 F L 08/03/18 10:22 Pulse Rate 113 H 08/03/18 13:21 Respiratory Rate 22 08/03/18 13:21 Blood Pressure 120/74 08/03/18 13:21 Pulse Oximetry 96 08/03/18 13:21 Medical Decision Making MDM Narrative Medical decision making narrative: 83-year-old female with generalized malaise and weakness. New-onset atrial fibrillation. Cardizem bolus and drip started. Normal saline solution 1 L IV bolus. Medical Screen Exam Complete: Yes Emergency Medical Condition: Yes Differential Diagnosis Differential Diagnosis: Differential diagnosis including new onset atrial fibrillation with RVR, angina, GA, dehydration, electrolyte imbalance, pneumonia , UTI, sepsis. Lab Data Lab results reviewed: Yes I reviewed the patient's lab results. Result diagrams: 08/03/18 10:35 08/03/18 10:35 Lab Results 08/03/18 08/03/18 08/03/18 Range/Units 10:35 10:35 10:35 WBC 8.5 (4.0-11.0) th/mm3 RBC 3.89 L (4.00-5.30) mil/mm3 Hgb 13.0 (11.6-15.3) gm/dL Hct 38.7 (35.0-46.0) % MCV 99.4 (80.0-100.0) fL MCH 33.3 (27.0-34.0) pg MCHC 33.5 (32.0-36.0) % RDW 12.6 (11.6-17.2) % Plt Count 164 (150-450) th/mm3 MPV 9.0 (7.0-11.0) fL Neut % (Auto) 73.8 H (16.0-70.0) % Lymph % (Auto) 18.4 (9.0-44.0) % [place] % (Auto) 6.4 (0.0-8.0) % Eos % (Auto) 1.0 (0.0-4.0) % Baso % (Auto) 0.4 (0.0-2.0) % Neut # (Auto) 6.3 (1.8-7.7) th/mm3 Lymph # (Auto) 1.6 (1.0-4.8) th/mm3 [place] # (Auto) 0.5 (0.0-0.9) th/mm3 Eos # (Auto) 0.1 (0.0-0.4) th/mm3 Baso # (Auto) 0.0 (0.0-0.2) th/mm3 WBC Differential . Differential Comment Auto diff final PT 10.5 (9.8-11.6) sec INR 1.0 Ratio APTT 25.2 (24.3-30.1) sec Sodium (136-145) meq/L Potassium (3.5-5.1) meq/L Chloride (98-107) meq/L Carbon Dioxide (21.0-32.0) meq/L Anion Gap (5-15) meq/L BUN (7-18) mg/dL Creatinine (0.50-1.00) mg/dL Estimated GFR (>89) mL/min Random Glucose (74-106) mg/dL Lactic Acid (0.4-2.0) mmol/L Calcium (8.5-10.1) mg/dL Phosphorus 1.5 L (2.5-4.9) mg/dL Magnesium 1.2 L (1.5-2.5) mg/dL Total Bilirubin (0.2-1.0) mg/dL AST (15-37) U/L ALT (10-53) U/L Alkaline Phosphatase (45-117) U/L Total Creatine Kinase 112 (26-192) U/L CK-MB (CK-2) 1.2 (0.5-3.6) ng/mL Troponin I 0.04 (0.02-0.05) ng/mL Total Protein (6.4-8.2) g/dL Albumin (3.4-5.0) g/dL Urine Color (Yellw/Straw) Urine Clarity (Clear) Urine pH (5.0-8.5) Ur Specific [place] (1.002-1.035) Urine Protein (Neg-Trace) mg/dL Urine Glucose (UA) (Negative) mg/dL Urine Ketones (Negative) mg/dL Urine Occult Blood (Negative) Urine Nitrate (Negative) Urine Bilirubin (Negative) Urine Urobilinogen (Less than 2) mg/dL Ur Leukocyte Esterase (Negative) Urine RBC (0-3) /hpf Urine WBC (0-5) /hpf Hyaline Casts (0-3) /lpf Micro UA Comment Ur Microscopic Review Urine Culture Comments 08/03/18 08/03/18 08/03/18 Range/Units 10:35 10:40 11:00 WBC (4.0-11.0) th/mm3 RBC (4.00-5.30) mil/mm3 Hgb (11.6-15.3) gm/dL Hct (35.0-46.0) % MCV (80.0-100.0) fL MCH (27.0-34.0) pg MCHC (32.0-36.0) % RDW (11.6-17.2) % Plt Count (150-450) th/mm3 MPV (7.0-11.0) fL Neut % (Auto) (16.0-70.0) % Lymph % (Auto) (9.0-44.0) % [place] % (Auto) (0.0-8.0) % Eos % (Auto) (0.0-4.0) % Baso % (Auto) (0.0-2.0) % Neut # (Auto) (1.8-7.7) th/mm3 Lymph # (Auto) (1.0-4.8) th/mm3 [place] # (Auto) (0.0-0.9) th/mm3 Eos # (Auto) (0.0-0.4) th/mm3 Baso # (Auto) (0.0-0.2) th/mm3 WBC Differential Differential Comment PT (9.8-11.6) sec INR Ratio APTT (24.3-30.1) sec Sodium 136 (136-145) meq/L Potassium 4.5 (3.5-5.1) meq/L Chloride 96 L (98-107) meq/L Carbon Dioxide 24.2 (21.0-32.0) meq/L Anion Gap 16 H (5-15) meq/L BUN 11 (7-18) mg/dL Creatinine 0.91 (0.50-1.00) mg/dL Estimated GFR 59 L (>89) mL/min Random Glucose 97 (74-106) mg/dL Lactic Acid 1.5 (0.4-2.0) mmol/L Calcium 9.3 (8.5-10.1) mg/dL Phosphorus (2.5-4.9) mg/dL Magnesium (1.5-2.5) mg/dL Total Bilirubin 1.1 H (0.2-1.0) mg/dL AST 43 H (15-37) U/L ALT 28 (10-53) U/L Alkaline Phosphatase 54 (45-117) U/L Total Creatine Kinase (26-192) U/L CK-MB (CK-2) (0.5-3.6) ng/mL Troponin I (0.02-0.05) ng/mL Total Protein 6.8 (6.4-8.2) g/dL Albumin 3.4 (3.4-5.0) g/dL Urine Color Straw (Yellw/Straw) Urine Clarity Clear (Clear) Urine pH 8.0 (5.0-8.5) Ur Specific [place] 1.005 (1.002-1.035) Urine Protein Negative (Neg-Trace) mg/dL Urine Glucose (UA) Negative (Negative) mg/dL Urine Ketones 20 (Negative) mg/dL Urine Occult Blood Negative (Negative) Urine Nitrate Negative (Negative) Urine Bilirubin Negative (Negative) Urine Urobilinogen Less than 2 (Less than 2) mg/dL Ur Leukocyte Esterase Negative (Negative) Urine RBC Less than 1 (0-3) /hpf Urine WBC 1 (0-5) /hpf Hyaline Casts 1 (0-3) /lpf Micro UA Comment Cath-culture not ind Ur Microscopic Review Not Reportable Urine Culture Comments Cath-cult not ind Imaging Data Radiologist's impression: Head CT 08/03/18 10:26 CONCLUSION: 1. Negative for an acute process. . Chest X-Ray 08/03/18 10:27 CONCLUSION: Prominent right hilum otherwise negative. CT scan with contrast may be of benefit. Discharge Plan Discharge Disposition Patient Disposition: 30 Still Patient Discharge Details Diagnosis: Atrial fibrillation with RVR, Physical deconditioning Physicians Team ED Provider: Trell Luna Primary Care Provider: Valentino Ellis Rxs /Orders / Referrals /Forms Prescriptions: No Action atorvastatin 10 mg Tablet 10 mg PO DAILY RF: 0 enalapril maleate 20 mg Tablet 20 mg PO BID RF: 0 cyanocobalamin (vitamin B-12) [Vitamin B-12] 1,000 mcg Tablet 500 mcg PO DAILY RF: 0 aspirin [Aspir-81] 81 mg Tablet,Delayed Release (Dr/Ec) 81 mg PO DAILY RF: 0 metoprolol tartrate 50 mg Tablet 50 mg PO BID RF: 0 magnesium 250 mg Tablet 600 mg PO BID RF: 0 gabapentin 100 mg Capsule 300 mg PO TID RF: 0 cholecalciferol (vitamin D3) [Vitamin D3] 1,000 unit Capsule See Label Instructions .ROUTE .COMPLEX RF: 0 omega 6-kgp-yxd-fish oil [Fish Oil] 1,000 mg (120 mg-180 mg) Capsule See Label Instructions .ROUTE .COMPLEX RF: 0 levothyroxine 88 mcg Capsule 88 mcg PO DAILY RF: 0 ferrous sulfate, dried [iron] 159 mg (45 mg iron) Tablet Extended Release 65 mg PO DAILY RF: 0 latanoprost 0.005 % Drops 1 drp OPHTHALMIC (EYE) QPM RF: 0 polyethylene glycol 3350 [Miralax] 17 gram Powder In Packet 17 g PO DAILY PRN (Reason: Constipation) RF: 0 docusate sodium [Stool Softener] 50 mg Capsule 50 mg PO DAILY RF: 0 calcium carbonate [Calcium 500] 500 mg calcium (1,250 mg) Tablet 1,000 mg PO DAILY RF: 0 multivitamin Capsule See Label Instructions .ROUTE .COMPLEX RF: 0 psyllium seed (with dextrose) [fiber] Powder 1.7 g PO DAILY RF: 0 lactobacillus combination no.4 [Probiotic] 3 billion cell Capsule 3,000 mmu cells PO DAILY RF: 0 ipratropium-albuterol 0.5 mg-3 mg(2.5 mg base)/3 mL Solution For Nebulization 1 amp NEB Q6HR WHILE AWAKE NEB Qty: 1 RF: 0 levofloxacin [Levaquin] 750 mg Tablet 750 mg PO Q48H Qty: 4 RF: 0 guaifenesin [Mucinex] 600 mg Tablet Extended Release 12hr 600 mg PO BID Qty: 14 RF: 0 prednisone 5 mg Tablet 5 mg PO DIRECTED Qty: 21 RF: 0 Discharge Interventions Interventions: Vital Signs Last Done: 08/03/18 13:21 Status ED Status: Admitted Patient
[2018-08-03 14:25] LABS: Alanine Aminotransferase 28 U/L (10-53); Albumin 3.4 g/dL (3.4-5.0); Anion Gap 16 meq/L (5-15); Aspartate Aminotransferase 43 U/L (15-37); Blood Urea Nitrogen 11 mg/dL (7-18); Calcium 9.3 mg/dL (8.5-10.1); Carbon Dioxide 24.2 meq/L (21.0-32.0); Chloride 96 meq/L (98-107); Glomerular Filtration Rate 59 mL/min (>89); Glucose,Random 97 mg/dL (74-106); Potassium 4.5 meq/L (3.5-5.1); Sodium 136 meq/L (136-145)
[2018-08-03 14:28] LABS: Alkaline Phosphatase 54 U/L (45-117); Total Protein 6.8 g/dL (6.4-8.2)
--- NOTE | 2018-08-03 15:38 | ECG ---
Date Performed: 08/03/2018 Time Performed: 10:26:58 PTAGE: 83 years EKG: ATRIAL FIBRILLATION WITH RAPID VENTRICULAR RESPONSE NONSPECIFIC ST & T-WAVE ABNORMALITY ABN ORMAL RHYTHM ECG PREVIOUS TRACING : 07/23/2018 19.15 Compared to previous tracing, atrial fibrillation With rapi d ventricular response is new DOCTOR: Tristan Whalen Interpretating Date/Time 08/03/2018 15:37:17
[2018-08-03] MEDS ORDERED: Acetaminophen 325 MG Tablet PO PRN (16:00)
[2018-08-03] MEDS ORDERED: Enoxaparin Inj 40 MG/0.4 ML Syringe SQ SCH (16:00)
[2018-08-03] MEDS ORDERED: Sod Chloride 0.9% Inj 1,000 ML IV.CONT SCH (16:00)
--- NOTE | 2018-08-03 16:09 | P.HP ---
History of Present Illness Primary Care Physician: Valentino Ellis MD History of Present Illness: 83-year-old female with history of hypertension, hypothyroidism, type 2 diabetes presents to the ER with onset of generalized weakness and malaise. In the ER she was found to be in atrial fibrillation with RVR and does not had a history of this previously. She reports that she was recently taken off of all blood pressure medicines due to bradycardia and hypotension. She apparently had a heart rate of 38 bpm on an office visit 1 week ago and was taken off of her metoprolol. 2 days later she began to have periodic episodes of weakness and dizziness, today the symptoms became persistent and her family was concerned and called EMS. I asked if she is having any active chest pain and she says though it is not painful she does have a sensation of pressure in the central part of her chest without radiation to the jaw or arms. She denies any recent fever, denies dysuria, denies any change to the appearance or smell of her urine. She denies any recent nausea, vomiting, or diarrhea. She does have a history of COPD and was admitted on July 14 and discharged a few days later after being treated for COPD exacerbation, she did go home on Levaquin but has not taken that medicine since approximately July 17. Review of Systems All other systems reviewed negative except as stated in HPI PMFSH - History History Provided By: Patient - Medical History Medical History: Medical History (Last Reviewed 08/03/18 @ 13:31 by Trell Luna MD) Aortic valve regurgitation Back pain COPD (chronic obstructive pulmonary disease) Colitis Diabetes mellitus High cholesterol Hypertension Hypothyroidism - Surgical History Surgical History: Surgical History (Last Reviewed 08/03/18 @ 13:31 by Trell Luna MD) History of History of cataract surgery History of tonsillectomy - Family History Family History: Family History (Last Reviewed 08/03/18 @ 13:31 by Trell Luna MD) Other CAD (coronary artery disease) Epilepsy - Tobacco History Second Hand Smoke Exposure: No Smoking Status: Never smoker Tobacco Type: Cigarettes - Alcohol History How Often Do You Have a Drink Containing Alcohol: Never - Substance Use History Substance History: No History of Abuse - Travel History Recent Travel in the [place] Within the Last 8 Weeks: No Recent Travel Out of the Country Within the Last 8 Weeks: No - Immunization History Tetanus Immunization: >5 Years Hx Influenza Vaccine This Season: Yes Medications and Allergies Active Medications: Active Medications Acetaminophen (Tylenol) 650 mg PO Q4H PRN PRN Reason: Temp > 100.4 Al Hydroxide/Mg Hydroxide (Milk Of Lakshmi Hendrix) 30 ml PO Q12H PRN PRN Reason: Mild Constipation Aspirin (Ecotrin) 81 mg PO DAILY [facility] Atorvastatin Calcium (Lipitor) 10 mg PO DAILY [facility] Enalapril Maleate (Vasotec) 20 mg PO BID [facility] Enoxaparin Sodium (Lovenox Inj) 40 mg SQ Q24H [facility] Gabapentin (Neurontin) 300 mg PO TID [facility] Diltiazem HCl 125 mg/ Sodium (Chloride) 125 mls @ 5 mls/hr IV.CONT TITRATE PRN ; Protocol PRN Reason: Per Protocol Last Titration: 08/03/18 11:51 Dose: 10 mg/hr, 10 mls/hr Sodium Chloride (Ns Inj) 1,000 mls @ 0 mls/hr IV.SIG BOLUS [facility] Last Infusion: 08/03/18 11:51 Dose: Infused Sodium Chloride (Ns Inj) 1,000 mls @ 42 mls/hr IV.CONT .[id number] [facility] Latanoprost (Xalatan 0.005% Opth Drops) 1 drop EACH EYE QPM [facility] Levothyroxine Sodium (Synthroid) 88 mcg PO DAILY@0600 [facility] Magnesium Oxide (Mag-Ox) 400 mg PO BID [facility] Metoprolol Tartrate (Lopressor) 50 mg PO BID [facility] Ondansetron HCl (Zofran Inj) 4 mg IV.PUSH Q6H PRN PRN Reason: NAUSEA OR VOMITING Prednisone (Deltasone) 30 mg PO Q24H [facility]; Taper Stop: 08/09/18 16:59 Allergies Allergy/AdvReac Type Severity Reaction Status Date / Time Cephalosporins Allergy Intermediate Rash Verified 08/03/18 10:27 penicillin G Allergy Intermediate Rash Verified 08/03/18 10:27 Home Medications Medication Instructions Recorded Confirmed Type aspirin [Aspir-81] 81 mg PO DAILY 07/14/18 08/03/18 History atorvastatin 10 mg PO DAILY 07/14/18 08/03/18 History calcium carbonate [Calcium 500] 1,000 mg PO DAILY 07/14/18 08/03/18 History cholecalciferol (vitamin D3) See Label Instructions .ROUTE 07/14/18 08/03/18 History [Vitamin D3] .COMPLEX cyanocobalamin (vitamin B-12) 500 mcg PO DAILY 07/14/18 08/03/18 History [Vitamin B-12] docusate sodium [Stool Softener] 50 mg PO DAILY 07/14/18 08/03/18 History enalapril maleate 20 mg PO BID 07/14/18 08/03/18 History ferrous sulfate, dried [iron] 65 mg PO DAILY 07/14/18 08/03/18 History gabapentin 300 mg PO TID 07/14/18 08/03/18 History lactobacillus combination no.4 3,000 mmu cells PO DAILY 07/14/18 08/03/18 History [Probiotic] latanoprost 1 drp OPHTHALMIC (EYE) QPM 07/14/18 08/03/18 History levothyroxine 88 mcg PO DAILY 07/14/18 08/03/18 History magnesium 600 mg PO BID 07/14/18 08/03/18 History metoprolol tartrate 50 mg PO BID 07/14/18 08/03/18 History multivitamin See Label Instructions .ROUTE 07/14/18 08/03/18 History .COMPLEX omega 7-hxn-ahy-fish oil [Fish Oil] See Label Instructions .ROUTE 07/14/1808/03 History .COMPLEX polyethylene glycol 3350 [Miralax] 17 g PO DAILY PRN 07/14/18 08/03/18 History psyllium seed (with dextrose) 1.7 g PO DAILY 07/14/18 08/03/18 History [fiber] Exam Vital signs: Vital Signs 08/03/18 10:22 08/03/18 10:44 08/03/18 10:53 Temperature 97.4 F L Pulse Rate 154 H 103 H Respiratory Rate 22 20 Blood Pressure 135/82 92/50 L Pulse Oximetry 95 95 99 08/03/18 13:21 Temperature Pulse Rate 113 H Respiratory Rate 22 Blood Pressure 120/74 Pulse Oximetry 96 Intake & Output 08/02/18 08/03/18 08/03/18 18:59 06:59 18:59 Intake Total 1000 / 1000 Output Total 600 / 600 Balance 400 / 400 Weight 69.853 kg Intake: IV 1000 / 1000 NS Inj 1,000 ML @ Wide Open IV. 1000 / 1000 SIG BOLUS [facility] Rx#:[id number] Output: Urine Amount (Catheter) 600 / 600 Indwelling Urethral Catheter 600 / 600 Narrative: GENERAL: AAOx3, no acute distress, adequate nutrition, generally weak appearing SKIN: Warm and dry, no rashes. HEAD: Atraumatic. Normocephalic. EYES: Pupils equal, round, reactive to light. No scleral icterus. No injection or drainage. ENT: No nasal bleeding or discharge. Moist mucous membranes. Nonerythematous oropharynx. NECK: Trachea midline. No JVD. Thyroid size within normal limits. CARDIOVASCULAR: Irregularly irregular, tachycardic, approximately 120 bpm. No murmur, no gallops, no rubs. RESPIRATORY: Clear and equal to auscultation bilaterally. No crackles, no wheezes. No accessory muscle use. GASTROINTESTINAL: Abdomen soft, non-tender, nondistended, normal active bowel sounds. Hepatic and splenic margins not palpable. MUSCULOSKELETAL: Extremities without clubbing or cyanosis. No obvious deformities. Trace edema to mid aldana bilaterally NEUROLOGICAL: Awake and alert. No obvious cranial nerve deficits. Motor grossly within normal limits. No focal deficits. Five out of 5 muscle strength in the arms and legs. Normal speech. PSYCHIATRIC: Appropriate mood and affect; insight and judgment normal. Results - Labs CBC & Chem 7: 08/03/18 10:35 08/03/18 10:35 Labs: Laboratory Results - last 24 hr 08/03/18 08/03/18 08/03/18 10:35 10:35 10:35 WBC 8.5 RBC 3.89 L Hgb 13.0 Hct 38.7 MCV 99.4 MCH 33.3 MCHC 33.5 RDW 12.6 Plt Count 164 MPV 9.0 Neut % (Auto) 73.8 H Lymph % (Auto) 18.4 Wilkin % (Auto) 6.4 Eos % (Auto) 1.0 Baso % (Auto) 0.4 Neut # (Auto) 6.3 Lymph # (Auto) 1.6 Wilkin # (Auto) 0.5 Eos # (Auto) 0.1 Baso # (Auto) 0.0 WBC Differential . Differential Comment Auto diff final PT 10.5 INR 1.0 APTT 25.2 Sodium Potassium Chloride Carbon Dioxide Anion Gap BUN Creatinine Estimated GFR Random Glucose Lactic Acid Calcium Phosphorus 1.5 L Magnesium 1.2 L Total Bilirubin AST ALT Alkaline Phosphatase Total Creatine Kinase 112 CK-MB (CK-2) 1.2 Troponin I 0.04 Total Protein Albumin Urine Color Urine Clarity Urine pH Ur Specific Alden Urine Protein Urine Glucose (UA) Urine Ketones Urine Occult Blood Urine Nitrate Urine Bilirubin Urine Urobilinogen Ur Leukocyte Esterase Urine RBC Urine WBC Hyaline Casts Micro UA Comment Ur Microscopic Review Urine Culture Comments 08/03/18 08/03/18 08/03/18 10:35 10:40 11:00 WBC RBC Hgb Hct MCV MCH MCHC RDW Plt Count MPV Neut % (Auto) Lymph % (Auto) Wilkin % (Auto) Eos % (Auto) Baso % (Auto) Neut # (Auto) Lymph # (Auto) Wilkin # (Auto) Eos # (Auto) Baso # (Auto) WBC Differential Differential Comment PT INR APTT Sodium 136 Potassium 4.5 Chloride 96 L Carbon Dioxide 24.2 Anion Gap 16 H BUN 11 Creatinine 0.91 Estimated GFR 59 L Random Glucose 97 Lactic Acid 1.5 Calcium 9.3 Phosphorus Magnesium Total Bilirubin 1.1 H AST 43 H ALT 28 Alkaline Phosphatase 54 Total Creatine Kinase CK-MB (CK-2) Troponin I Total Protein 6.8 Albumin 3.4 Urine Color Straw Urine Clarity Clear Urine pH 8.0 Ur Specific Alden 1.005 Urine Protein Negative Urine Glucose (UA) Negative Urine Ketones 20 Urine Occult Blood Negative Urine Nitrate Negative Urine Bilirubin Negative Urine Urobilinogen Less than 2 Ur Leukocyte Esterase Negative Urine RBC Less than 1 Urine WBC 1 Hyaline Casts 1 Micro UA Comment Cath-culture not ind Ur Microscopic Review Not Reportable Urine Culture Comments Cath-cult not ind - Imaging Impressions Head CT 08/03/18 10:26 CONCLUSION: 1. Negative for an acute process. . Chest X-Ray 08/03/18 10:27 CONCLUSION: Prominent right hilum otherwise negative. CT scan with contrast may be of benefit. Caprini VTE Risk Assessment Caprini VTE Risk Assessment: Moderate/High Risk (score >= 2) Caprini Risk Assessment Model: Point Value = 1 Point Value = 2 Point Value = 3 Point Value = 5 Age 41-60 Minor surgery BMI > 25 kg/m2 Swollen legs Varicose veins or History of unexplained or recurrent spontaneous Oral contraceptives or hormone replacement Sepsis (< 1 month) Serious lung disease, including pneumonia (< 1 month) Abnormal pulmonary function Acute myocardial infarction Congestive heart failure (< 1 month) History of inflammatory bowel disease Medical patient at bed rest Age 61-74 Arthroscopic surgery Major open surgery (> 45 min) Laparoscopic surgery (> 45 min) Malignancy Confined to bed (> 72 hours) Immobilizing plaster cast Central venous access Age >= 75 History of VTE Family history of VTE Factor V Leiden Prothrombin [id number] Lupus anticoagulant Anticardiolipin antibodies Elevated serum homocysteine Heparin-induced thrombocytopenia Other congenital or acquired thrombophilia Stroke (< 1 month) Elective arthroplasty Hip, pelvis, or leg fracture Acute spinal cord injury (< 1 month) Prophylaxis Regimen: Total Risk Factor Score Risk Level Prophylaxis Regimen 0-1 Low Early ambulation 2 Moderate Order ONE of the following: *Sequential Compression Device (SCD) *Heparin 5000 units SQ BID 3-4 Higher Order ONE of the following medications: *Heparin 5000 units SQ TID *Enoxaparin/Lovenox 40 mg SQ daily (WT < 150 kg, CrCl > 30 mL/min) *Enoxaparin/Lovenox 30 mg SQ daily (WT < 150 kg, CrCl > 10-29 mL/min) *Enoxaparin/Lovenox 30 mg SQ BID (WT < 150 kg, CrCl > 30 mL/min) AND/OR *Sequential Compression Device (SCD) 5 or more Highest Order ONE of the following medications: *Heparin 5000 units SQ TID (Preferred with Epidurals) *Enoxaparin/Lovenox 40 mg SQ daily (WT < 150 kg, CrCl > 30 mL/min) *Enoxaparin/Lovenox 30 mg SQ daily (WT < 150 kg, CrCl > 10-29 mL/min) *Enoxaparin/Lovenox 30 mg SQ BID (WT < 150 kg, CrCl > 30 mL/min) AND *Sequential Compression Device (SCD) Assessment and Plan - Plan New onset atrial fibrillation Patient was recently taken off of metoprolol which is likely masking this diagnosis She presents with some intermittent central chest pressure, likely from increase cardiac work, but could be more of a causal factor Admitted to CICU, on telemetry, continue supplemental oxygen Add Nitrostat as needed We will give a dose of metoprolol twice daily and load her with digoxin Cardiology consulted (her carburetor rebuilder is Dr. Azevedo) Type 2 diabetes Accu-Cheks with sliding scale insulin coverage Diabetic diet Hypothyroidism Continue home dose levothyroxine 88 mcg daily Check TSH in a.m. Hypertension Patient was discontinued from her hypertensive medications after she had hypotension with bradycardia a week ago DVT Prophylaxis Lovenox
[2018-08-03] MEDS ORDERED: Digoxin Inj 500 MCG/2 ML Ampul IV.PUSH ONE (16:12)
[2018-08-03] MEDS: Gabapentin 100 MG Capsule PO SCH (18:02)
[2018-08-03] MEDS: Latanoprost 0.005% Opth Drops 2.5 ML Bottle EACH EYE SCH (18:02)
[2018-08-03] MEDS: predniSONE 5 MG Tablet PO SCH (18:03)
[2018-08-03] MEDS: dilTIAZem CD 240 MG Capsule PO SCH (20:36)
[2018-08-03] MEDS: Enoxaparin Inj 80 MG/0.8 ML Syringe SQ SCH (20:36)
[2018-08-03] MEDS: Metoprolol Tartrate 25 MG Tablet PO SCH (20:36)
[2018-08-03] MEDS: Mag Sulf 1 gm/100 ml Premix 100 ML IV.SIG SCH ×2 (20:37→21:52)
[2018-08-03] MEDS: Magnesium Oxide 400 MG Tablet PO SCH (20:37)
[2018-08-03 20:42] LABS: Albumin 3.2 g/dL (3.4-5.0); Anion Gap 12 meq/L (5-15); Aspartate Aminotransferase 33 U/L (15-37); Blood Urea Nitrogen 12 mg/dL (7-18); Calcium 9.3 mg/dL (8.5-10.1); Carbon Dioxide 22.7 meq/L (21.0-32.0); Chloride 102 meq/L (98-107); Glomerular Filtration Rate 72 mL/min (>89); Glucose,Random 89 mg/dL (74-106); Potassium 3.8 meq/L (3.5-5.1); Sodium 137 meq/L (136-145)
[2018-08-03 20:48] LABS: Alanine Aminotransferase 27 U/L (10-53); Alkaline Phosphatase 51 U/L (45-117); Total Protein 6.1 g/dL (6.4-8.2); Troponin I 0.13 ng/mL (0.02-0.05)
[2018-08-03 20:55] LABS: Creatine Kinase 84 U/L (26-192)
[2018-08-03] MEDS ORDERED: Metoprolol Tartrate 50 MG Tablet PO SCH (21:00)
--- NOTE | 2018-08-03 21:33 | MB ---
cc: Ap Khan MD DATE: 08/03/2018 REASON FOR CONSULTATION: Evaluation of atrial fibrillation with rapid ventricular response. HISTORY OF PRESENT ILLNESS: Ana Zepeda is an 83-year-old woman with severe COPD. She has pulmonary hypertension. Her pulmonary artery pressure on her echo 07/24/2018 was 65 mmHg. This is her third recent admission. She has had 2 previous admissions for COPD exacerbations and was discharged not too long ago. She saw her primary care physician a little over a week ago. Apparently, her blood pressure was low and he stopped her metoprolol as well as her enalapril. At least for a couple days prior to admission, she noticed her heart beating rapidly and feeling generalized weak and she presents with atrial fibrillation and rapid ventricular response. She had some central chest discomfort, which has gone away. She has no chest discomfort at this time and troponin so far has been normal. PAST MEDICAL HISTORY: Includes stage III kidney disease, COPD, type 2 diabetes, GERD, hypertension, hyperlipidemia, hypothyroidism, arthritis. PAST SURGICAL HISTORY: Includes cataract surgery and . SOCIAL HISTORY: She is a former smoker, does not drink any alcohol. ALLERGIES: INCLUDE PENICILLIN AND CEPHALOSPORINS. FAMILY HISTORY: Positive for coronary artery disease and epilepsy. PHYSICAL EXAM: Reveals a pleasant elderly white female, in no acute distress. Telemetry showing atrial fibrillation with increased rate. HEENT: Unremarkable. NECK: No JVD. No bruits. CHEST: Shows mildly diminished breath sounds bilaterally. No wheezing at this time. CARDIAC: S1, S2, irregular rate and rhythm and tachycardic. No S3 gallop. ABDOMEN: Soft, nontender. EXTREMITIES: Reveal no clubbing or cyanosis. Extremities reveal no peripheral edema. LABORATORY DATA: Charted. Magnesium level is only 1.2 and I have ordered 2 g. Potassium is 4.5, creatinine 0.91. Troponin 0.04. AST mildly elevated at 43. Her chest x-ray is showing prominent right hilum, otherwise unremarkable. IMPRESSION: Paroxysmal atrial fibrillation with rapid ventricular response, rate so far is difficult to control. PLAN: I will go ahead and start p.o. metoprolol and p.o. diltiazem. Will change her Lovenox to 1 mg/kg subcutaneous every 12 hours. Further therapy to be determined. Hopefully, we can rate control and anticoagulate her prior to discharge. If we are not able to rate control her, she might need a ISMAEL-guided cardioversion versus possible ablation this admission. Further therapy to be determined. MD AMINTA Lr/armando , 07:01 PM , 07:09 PM
[2018-08-03] MEDS ORDERED: Sod Chloride 0.9% Inj 1,000 ML IV.SIG SCH (22:37)
[2018-08-04 02:25] LABS: Troponin I 0.21 ng/mL (0.02-0.05)
[2018-08-04] MEDS: Levothyroxine 88 MCG Tablet PO SCH (05:24)
[2018-08-04] MEDS: Enoxaparin Inj 80 MG/0.8 ML Syringe SQ SCH (09:01)
[2018-08-04] MEDS: Gabapentin 100 MG Capsule PO SCH ×3 (09:01→17:19)
[2018-08-04] MEDS: Magnesium Oxide 400 MG Tablet PO SCH ×2 (09:02→20:59)
[2018-08-04] MEDS: dilTIAZem CD 240 MG Capsule PO SCH (09:02)
[2018-08-04] MEDS: Metoprolol Tartrate 25 MG Tablet PO SCH (09:03)
--- NOTE | 2018-08-04 09:21 | P.PNCA ---
Subjective Interval history: c/o headache. No CV sx's Medications and Allergies Active Medications: Active Medications Acetaminophen (Tylenol) 650 mg PO Q4H PRN PRN Reason: Temp > 100.4 Last Admin: 08/04/18 09:02 Dose: 650 mg Al Hydroxide/Mg Hydroxide (Milk Of Magnjaleesa Liq) 30 ml PO Q12H PRN PRN Reason: Mild Constipation Apixaban (Eliquis) 5 mg PO BID [facility] Atorvastatin Calcium (Lipitor) 10 mg PO DAILY [facility] Last Admin: 08/04/18 09:03 Dose: 10 mg Diltiazem HCl (Cardizem Cd 24hr) 240 mg PO DAILY [facility] Last Admin: 08/04/18 09:02 Dose: 240 mg Gabapentin (Neurontin) 300 mg PO TID [facility] Last Admin: 08/04/18 09:01 Dose: 300 mg Sodium Chloride (Ns Inj) 1,000 mls @ 0 mls/hr IV.SIG BOLUS [facility] Last Infusion: 08/03/18 23:50 Dose: Infused Sodium Chloride (Ns Inj) 1,000 mls @ 0 mls/hr IV.SIG BOLUS [facility] Latanoprost (Xalatan 0.005% Opth Drops) 1 drop EACH EYE QPM [facility] Last Admin: 08/03/18 18:02 Dose: 1 drop Levothyroxine Sodium (Synthroid) 88 mcg PO DAILY@0600 [facility] Last Admin: 08/04/18 05:24 Dose: 88 mcg Magnesium Oxide (Mag-Ox) 400 mg PO BID [facility] Last Admin: 08/04/18 09:02 Dose: 400 mg Metoprolol Tartrate (Lopressor) 25 mg PO BID [facility] Last Admin: 08/04/18 09:03 Dose: 25 mg Nitroglycerin (Nitrostat Sl) 0.4 mg SL Q5M PRN PRN Reason: CHEST PAIN Ondansetron HCl (Zofran Inj) 4 mg IV.PUSH Q6H PRN PRN Reason: NAUSEA OR VOMITING Prednisone (Deltasone) 30 mg PO Q24H [facility]; Taper Stop: 08/09/18 16:59 Last Admin: 08/03/18 18:03 Dose: Not Given Allergies Allergy/AdvReac Type Severity Reaction Status Date / Time Cephalosporins Allergy Intermediate Rash Verified 08/03/18 10:27 penicillin G Allergy Intermediate Rash Verified 08/03/18 10:27 Home Medications Medication Instructions Recorded Confirmed Type aspirin [Aspir-81] 81 mg PO DAILY 07/14/18 08/03/18 History atorvastatin 10 mg PO DAILY 07/14/18 08/03/18 History calcium carbonate [Calcium 500] 1,000 mg PO DAILY 07/14/18 08/03/18 History cholecalciferol (vitamin D3) See Label Instructions .ROUTE 07/14/18 08/03/18 History [Vitamin D3] .COMPLEX cyanocobalamin (vitamin B-12) 500 mcg PO DAILY 07/14/18 08/03/18 History [Vitamin B-12] docusate sodium [Stool Softener] 50 mg PO DAILY 07/14/18 08/03/18 History enalapril maleate 20 mg PO BID 07/14/18 08/03/18 History ferrous sulfate, dried [iron] 65 mg PO DAILY 07/14/18 08/03/18 History gabapentin 300 mg PO TID 07/14/18 08/03/18 History lactobacillus combination no.4 3,000 mmu cells PO DAILY 07/14/18 08/03/18 History [Probiotic] latanoprost 1 drp OPHTHALMIC (EYE) QPM 07/14/18 08/03/18 History levothyroxine 88 mcg PO DAILY 07/14/18 08/03/18 History magnesium 600 mg PO BID 07/14/18 08/03/18 History metoprolol tartrate 50 mg PO BID 07/14/18 08/03/18 History multivitamin See Label Instructions .ROUTE 07/14/18 08/03/18 History .COMPLEX omega 5-rlw-byt-fish oil [Fish Oil] See Label Instructions .ROUTE 07/14/1808/03 History .COMPLEX polyethylene glycol 3350 [Miralax] 17 g PO DAILY PRN 07/14/18 08/03/18 History psyllium seed (with dextrose) 1.7 g PO DAILY 07/14/18 08/03/18 History [fiber] Physical Exam Vital signs: Vital Signs 08/03/18 10:22 08/03/18 10:44 08/03/18 10:53 Temperature 97.4 F L Pulse Rate 154 H 103 H Respiratory Rate 22 20 Blood Pressure 135/82 92/50 L Pulse Oximetry 95 95 99 08/03/18 13:21 08/03/18 16:20 08/03/18 18:00 Temperature Pulse Rate 113 H 108 H 109 H Respiratory Rate 22 20 Blood Pressure 120/74 166/80 H Pulse Oximetry 96 08/03/18 18:38 08/03/18 19:00 08/03/18 20:00 Temperature 97.9 F 98.1 F Pulse Rate 122 H 103 H 120 H Respiratory Rate 18 18 Blood Pressure 116/71 119/72 Pulse Oximetry 99 98 08/03/18 21:00 08/03/18 22:00 08/03/18 23:00 Temperature 98.2 F Pulse Rate 90 78 61 Respiratory Rate 16 Blood Pressure 87/54 L 101/55 L Pulse Oximetry 99 08/04/18 00:00 08/04/18 01:00 08/04/18 02:00 Temperature Pulse Rate 51 L 52 L 52 L Respiratory Rate Blood Pressure Pulse Oximetry 08/04/18 03:00 08/04/18 04:00 08/04/18 05:00 Temperature 97.9 F Pulse Rate 52 L 55 L 60 Respiratory Rate 16 Blood Pressure 111/55 L Pulse Oximetry 98 08/04/18 06:00 08/04/18 07:00 Temperature 97.8 F Pulse Rate 57 L 54 L Respiratory Rate 18 Blood Pressure 142/68 H Pulse Oximetry 100 Intake & Output 08/03/18 08/04/18 08/04/18 18:59 06:59 18:59 Intake Total 1100 / 1100 1520 / 1520 Output Total 1400 / 1400 375 / 375 Balance -300 / -300 1145 / 1145 Weight 69.853 kg 71 kg Intake: IV 1000 / 1000 1300 / 1300 Cardizem Inj 125 MG In NS Inj 100 / 100 100 ML @ 5 MG/HR 5 mls/hr IV. CONT TITRATE PRN Rx#:[id number] Magnesium Sulfate 1 gm/D5W 100 200 / 200 ml Premix 100 ML @ 100 mls/hr IV.SIG Q1H [facility] Rx#:[id number] NS Inj 1,000 ML @ Wide Open IV. 1000 / 1000 1000 / 1000 SIG BOLUS JABIER Rx#:[id number] Oral 100 / 100 220 / 220 Output: Urine Amount (Catheter) 1400 / 1400 375 / 375 Indwelling Urethral Catheter 1400 / 1400 375 / 375 - Constitutional no acute distress - Routine HEENT Exam Head: Present: normocephalic, atraumatic - Routine Neck Exam Present: supple. Absent: JVD - Routine Respiratory Exam Absent: accessory muscle use Comments: few basilar crackles and scattered exp wheeze - Routine Cardiovascular Exam Present: RRR, S1, S2 - Routine Abdominal Exam Present: soft - Routine Extremities Exam Absent: edema - Urinary Catheter Management Indwelling Urethral Catheter Cath placed during this visit: yes Reason for continuing: Hourly intake/output Insertion date: 08/03/18 Insertion time: 11:00 Results 08/03/18 10:35 08/03/18 19:47 Cardiac Enzymes 08/03/18 08/03/18 08/03/18 Range/Units 10:35 10:35 19:47 AST 43 H 33 (15-37) U/L CK-MB (CK-2) 1.2 (0.5-3.6) ng/mL Troponin I 0.04 0.13 H (0.02-0.05) ng/mL 08/04/18 Range/Units 01:38 AST (15-37) U/L CK-MB (CK-2) (0.5-3.6) ng/mL Troponin I 0.21 H (0.02-0.05) ng/mL Coagulation 08/03/18 Range/Units 10:35 PT 10.5 (9.8-11.6) sec APTT 25.2 (24.3-30.1) sec CBC 08/03/18 Range/Units 10:35 WBC 8.5 (4.0-11.0) th/mm3 RBC 3.89 L (4.00-5.30) mil/mm3 Hgb 13.0 (11.6-15.3) gm/dL Hct 38.7 (35.0-46.0) % Plt Count 164 (150-450) th/mm3 Neut # (Auto) 6.3 (1.8-7.7) th/mm3 Lymph # (Auto) 1.6 (1.0-4.8) th/mm3 Ritchie # (Auto) 0.5 (0.0-0.9) th/mm3 Eos # (Auto) 0.1 (0.0-0.4) th/mm3 Baso # (Auto) 0.0 (0.0-0.2) th/mm3 Comprehensive Metabolic Panel 10/01/18 10/01/18 Range/Units 10:35 19:47 Sodium 136 137 (136-145) meq/L Potassium 4.5 3.8 (3.5-5.1) meq/L Chloride 96 L 102 (98-107) meq/L Carbon Dioxide 24.2 22.7 (21.0-32.0) meq/L BUN 11 12 (7-18) mg/dL Creatinine 0.91 0.77 (0.50-1.00) mg/dL Calcium 9.3 9.3 (8.5-10.1) mg/dL AST 43 H 33 (15-37) U/L ALT 28 27 (10-53) U/L Alkaline Phosphatase 54 51 (45-117) U/L Total Protein 6.8 6.1 L D (6.4-8.2) g/dL Albumin 3.4 3.2 L (3.4-5.0) g/dL Intake and Output 08/03/18 08/04/18 08/04/18 22:59 06:59 14:59 Intake Total 400 / 400 1220 / 1220 Output Total 800 / 800 375 / 375 Balance -400 / -400 845 / 845 Intake: IV 300 / 300 1000 / 1000 Cardizem Inj 125 MG In NS Inj 100 / 100 100 ML @ 5 MG/HR 5 mls/hr IV. CONT TITRATE PRN Rx#:[id number] Magnesium Sulfate 1 gm/D5W 100 200 / 200 ml Premix 100 ML @ 100 mls/hr IV.SIG Q1H [facility] Rx#:[id number] NS Inj 1,000 ML @ Wide Open IV. 1000 / 1000 SIG BOLUS JABIER Rx#:[id number] Oral 100 / 100 220 / 220 Output: Urine Amount (Catheter) 800 / 800 375 / 375 Indwelling Urethral Catheter 800 / 800 375 / 375 Other: Weight 71 kg - Imaging and Cardiology Imaging: Impressions Head CT 08/03/18 10:26 CONCLUSION: 1. Negative for an acute process. . Chest X-Ray 08/03/18 10:27 CONCLUSION: Prominent right hilum otherwise negative. CT scan with contrast may be of benefit. Assessment and Plan - Assessment (1) Paroxysmal atrial fibrillation with rapid ventricular response Code(s): I48.0 - Paroxysmal atrial fibrillation Status: Acute Plan: Add Eliquis. Stop lovenox. Home tomorrow if stable (2) Hypomagnesemia Code(s): E83.42 - Hypomagnesemia Status: Acute Plan: Check Lab AM (3) COPD (chronic obstructive pulmonary disease) Code(s): J44.9 - Chronic obstructive pulmonary disease, unspecified Status: Acute Plan: D/C IV fluids
--- NOTE | 2018-08-04 10:39 | ECHRPT ---
CONCLUSIONS Normal left ventricular size. Wall thickness is normal. The left ventricular systolic function is hyperdynamic with an estimated ejection fraction in the ra nge of 65- 70%. There is mild tricuspid valve regurgitation. The estimated pulmonary arterial pressure is 47 mmHg. BP: / HR: Rhythm: MEASUREMENTS (Male / Female) Normal Values Technical Quality: 2D ECHO LV Diastolic Diameter PLAX 4.0 cm 4.2 - 5.9 / 3.9 - 5.3 cm LV Systolic Diameter PLAX 2.4 cm IVS Diastolic Thickness 0.9 cm 0.6 - 1.0 / 0.6 - 0.9 cm LVPW Diastolic Thickness 0.9 cm 0.6 - 1.0 / 0.6 - 0.9 cm LV Relative Wall Thickness 0.4 RV Internal Dim ED PLAX 3.0 cm LVOT Diameter 1.7 cm Aortic Root Diameter 2.7 cm LA Systolic Diameter LX 2.7 cm 3.0 - 4.0 / 2.7 - 3.8 cm LV Ejection Fraction MOD 4C 64.4 % LV Ejection Fraction 4C AL 65.3 % M-MODE Aortic Root Diameter MM 3.3 cm LA Systolic Diameter MM 3.4 cm LA Ao Ratio MM 1.0 AV Cusp Separation MM 1.8 cm DOPPLER AV Peak Velocity 143.0 cm/s AV Peak Gradient 8.2 mmHg LVOT Peak Velocity 101.0 cm/s LVOT Peak Gradient 4.1 mmHg AV Area Cont Eq pk 1.6 cm Mitral E Point Velocity 80.9 cm/s Mitral A Point Velocity 61.7 cm/s Mitral E to A Ratio 1.3 LV E' Lateral Velocity 4.1 cm/s Mitral E to LV E' Lateral Ratio 19.8 LV E' Septal Velocity 5.6 cm/s Mitral E to LV E' Septal Ratio 14.6 TR Peak Velocity 304.0 cm/s TR Peak Gradient 37.0 mmHg Right Atrial Pressure 10.0 mmHg Pulmonary Artery Systolic Pressu 47.0 mmHg Right Ventricular Systolic Press 47.0 mmHg PV Peak Velocity 94.5 cm/s PV Peak Gradient 3.6 mmHg FINDINGS LEFT VENTRICLE Normal left ventricular size. Wall thickness is normal. The left ventricular systolic function is hyperdynamic with an estimated ejection fraction in the ra nge of 65- 70%. No regional wall motion abnormalities are present. RIGHT VENTRICLE Normal right ventricular size and systolic function. LEFT ATRIUM The left atrial size is normal. RIGHT ATRIUM The right atrial size is normal. ATRIAL SEPTUM Normal atrial septal thickness without atrial level shunting by limited color doppler interrogation. AORTA The aortic root and proximal ascending aorta are normal in size on limited imaging. MITRAL VALVE Structurally normal mitral valve. No mitral valve stenosis or regurgitation. AORTIC VALVE Trileaflet aortic valve. No aortic valve stenosis or regurgitation. TRICUSPID VALVE There is mild tricuspid valve regurgitation. The estimated pulmonary arterial pressure is 47 mmHg. PULMONARY VALVE No pulmonary valve regurgitation or stenosis. VESSELS The inferior vena cava is normal in size. PERICARDIUM No pericardial effusion. Kevin Roberts (Electronically Signed) Final Date:04 August 2018 10:38
[2018-08-04] MEDS ORDERED: Dextrose 50% in Water 50 ML Vial IV.PUSH PRN (11:15)
[2018-08-04] MEDS: Insulin NovoLOG Aspart Correctional Sugar Inj SQ SCH ×2 (11:50→16:46)
--- NOTE | 2018-08-04 14:14 | P.PNIM ---
Subjective Interval history: Patient converted overnight to sinus rhythm, she states she feels much better. Physical Exam Vital signs: Vital Signs 08/03/18 16:20 08/03/18 18:00 08/03/18 18:38 Temperature 97.9 F Pulse Rate 108 H 109 H 122 H Respiratory Rate 20 18 Blood Pressure 166/80 H 116/71 Pulse Oximetry 99 08/03/18 19:00 08/03/18 20:00 08/03/18 21:00 Temperature 98.1 F Pulse Rate 103 H 120 H 90 Respiratory Rate 18 Blood Pressure 119/72 Pulse Oximetry 98 08/03/18 22:00 08/03/18 23:00 08/04/18 00:00 Temperature 98.2 F Pulse Rate 78 61 51 L Respiratory Rate 16 Blood Pressure 87/54 L 101/55 L Pulse Oximetry 99 08/04/18 01:00 08/04/18 02:00 08/04/18 03:00 Temperature 97.9 F Pulse Rate 52 L 52 L 52 L Respiratory Rate 16 Blood Pressure 111/55 L Pulse Oximetry 98 08/04/18 04:00 08/04/18 05:00 08/04/18 06:00 Temperature Pulse Rate 55 L 60 57 L Respiratory Rate Blood Pressure Pulse Oximetry 08/04/18 07:00 08/04/18 08:00 08/04/18 09:00 Temperature 97.8 F Pulse Rate 62 62 58 L Respiratory Rate 18 Blood Pressure 142/68 H Pulse Oximetry 100 08/04/18 10:00 08/04/18 11:00 08/04/18 11:19 Temperature 98.0 F Pulse Rate 52 L 54 L Respiratory Rate 16 Blood Pressure Pulse Oximetry 100 97 08/04/18 11:40 08/04/18 12:00 Temperature Pulse Rate 68 53 L Respiratory Rate 18 Blood Pressure Pulse Oximetry Intake & Output 08/03/18 08/04/18 08/04/18 18:59 06:59 18:59 Intake Total 1100 / 1100 1520 / 1520 900 / 900 Output Total 1400 / 1400 375 / 375 Balance -300 / -300 1145 / 1145 900 / 900 Weight 69.853 kg 71 kg Intake: IV 1000 / 1000 1300 / 1300 900 / 900 NS Inj 1,000 ML @ 42 mls/hr IV. 900 / 900 CONT .[id number] [facility] Rx#:[id number] Cardizem Inj 125 MG In NS Inj 100 / 100 100 ML @ 5 MG/HR 5 mls/hr IV. CONT TITRATE PRN Rx#:[id number] Magnesium Sulfate 1 gm/D5W 100 200 / 200 ml Premix 100 ML @ 100 mls/hr IV.SIG Q1H [facility] Rx#:[id number] NS Inj 1,000 ML @ Wide Open IV. 1000 / 1000 1000 / 1000 SIG BOLUS [facility] Rx#:[id number] Oral 100 / 100 220 / 220 Output: Urine Amount (Catheter) 1399 / 1400 375 / 375 Indwelling Urethral Catheter 1400 / 1400 375 / 375 Other: Date of Last Bowel Movement 07/31/18 Narrative: GENERAL: AAOx3, no acute distress, adequate nutrition, strength return SKIN: Warm and dry, no rashes. HEAD: Atraumatic. Normocephalic. EYES: Pupils equal, round, reactive to light. No scleral icterus. No injection or drainage. ENT: No nasal bleeding or discharge. Moist mucous membranes. Nonerythematous oropharynx. NECK: Trachea midline. No JVD. Thyroid size within normal limits. CARDIOVASCULAR: Normal sinus rhythm. No murmur, no gallops, no rubs. RESPIRATORY: Clear and equal to auscultation bilaterally. No crackles, no wheezes. No accessory muscle use. GASTROINTESTINAL: Abdomen soft, non-tender, nondistended, normal active bowel sounds. Hepatic and splenic margins not palpable. MUSCULOSKELETAL: Extremities without clubbing or cyanosis. No obvious deformities. Trace edema to mid aldana bilaterally NEUROLOGICAL: Awake and alert. No obvious cranial nerve deficits. Motor grossly within normal limits. No focal deficits. Five out of 5 muscle strength in the arms and legs. Normal speech. PSYCHIATRIC: Appropriate mood and affect; insight and judgment normal. - Urinary Catheter Management Indwelling Urethral Catheter Cath placed during this visit: yes, but has since been removed by the nurse Reason for continuing: Continue criteria not met Insertion date: 08/03/18 Insertion time: 11:00 Removal date: 08/04/18 Removal time: 11:49 Results - Labs CBC & Chem 7: 08/03/18 10:35 08/03/18 19:47 Laboratory Results - last 24 hr 08/03/18 08/03/18 08/04/18 10:35 19:47 01:38 Sodium 136 137 Potassium 4.5 3.8 Chloride 96 L 102 Carbon Dioxide 24.2 22.7 Anion Gap 16 H 12 BUN 11 12 Creatinine 0.91 0.77 Estimated GFR 59 L 72 L POC Glucose Random Glucose 97 89 Calcium 9.3 9.3 Total Bilirubin 1.1 H 0.8 AST 43 H 33 ALT 28 27 Alkaline Phosphatase 54 51 Total Creatine Kinase 84 78 Troponin I 0.13 H 0.21 H Total Protein 6.8 6.1 L D Albumin 3.4 3.2 L 08/04/18 08/04/18 08/04/18 08:17 11:17 13:13 Sodium Potassium Chloride Carbon Dioxide Anion Gap BUN Creatinine Estimated GFR POC Glucose 91 112 H 141 H Random Glucose Calcium Total Bilirubin AST ALT Alkaline Phosphatase Total Creatine Kinase Troponin I Total Protein Albumin Microbiology 08/03/18 10:40 Blood - Peripheral Aerobic Blood Culture - Preliminary No growth in 1 day 08/03/18 10:40 Blood - Peripheral Anaerobic Blood Culture - Preliminary No growth in 1 day 08/03/18 10:35 Blood - Peripheral Aerobic Blood Culture - Preliminary No growth in 1 day 08/03/18 10:35 Blood - Peripheral Anaerobic Blood Culture - Preliminary No growth in 1 day Assessment and Plan - Plan New onset atrial fibrillation Patient was recently taken off of metoprolol which was likely masking this diagnosis Converted to normal sinus rhythm following loading dose of digoxin and resumption of metoprolol twice daily Cardiology recommends Lexus Williamnox discontinued Appreciate cardiology consult Type 2 diabetes Accu-Cheks with sliding scale insulin coverage Diabetic diet Hypomagnesemia Patient presented with magnesium level of 1.2, orally replaced Recheck magnesium level with a.m. labs Hypothyroidism Continue home dose levothyroxine 88 mcg daily Hypertension Patient was discontinued from her hypertensive medications after she had hypotension with bradycardia a week ago DVT Prophylaxis Lovenox Discharge planning Cardiology states that patient may go home if heart remains stable tomorrow
[2018-08-04] MEDS: Latanoprost 0.005% Opth Drops 2.5 ML Bottle EACH EYE SCH (17:19)
[2018-08-04] MEDS: predniSONE 5 MG Tablet PO SCH (17:19)
--- NOTE | 2018-08-04 18:04 | ECG ---
Date Performed: 08/04/2018 Time Performed: 11:49:46 PTAGE: 83 years EKG: Sinus bradycardia with sinus arrhythmia Anterior ST changes are nonspecific Compared to pre vious tracing, sinus bradycardia has replaced atrial fibrillation Borderline ECG PREVIOUS TRACING : 08/03/2018 20.26 DOCTOR: Chandra Pena Interpretating Date/Time 08/04/2018 18:02:56
--- NOTE | 2018-08-04 18:04 | ECG ---
Date Performed: 08/03/2018 Time Performed: 20:26:28 PTAGE: 83 years EKG: Atrial fibrillation. Extensive ST-T changes are nonspecific Compared to previous tracing, v entricular response to the atrial fibrillation is slower Abnormal ECG PREVIOUS TRACING : 08/03/2018 10.26 DOCTOR: Chandra Pena Interpretating Date/Time 08/04/2018 18:02:31
[2018-08-05] MEDS: Levothyroxine 88 MCG Tablet PO SCH (05:17)
[2018-08-05 06:06] LABS: Calcium 8.9 mg/dL (8.5-10.1); Carbon Dioxide 25.6 meq/L (21.0-32.0); Magnesium 1.7 mg/dL (1.5-2.5)
[2018-08-05 06:15] LABS: Thyroid Stimulating Hormone 0.058 uIU/mL (0.358-3.740)
[2018-08-05] MEDS: Insulin NovoLOG Aspart Correctional Sugar Inj SQ SCH ×3 (08:20→17:40)
[2018-08-05] MEDS: Metoprolol Tartrate 25 MG Tablet PO SCH ×2 (09:09→21:32)
[2018-08-05] MEDS: Magnesium Oxide 400 MG Tablet PO SCH ×2 (09:09→21:34)
[2018-08-05] MEDS: Gabapentin 100 MG Capsule PO SCH ×3 (09:11→17:40)
--- NOTE | 2018-08-05 09:22 | P.PNIM ---
Subjective Interval history: The pt was resting in bed comfortably. She said she was eating well. She has been shaky at times. She has been receiving breathing treatments. Discussed with nursing at the bedside. Physical Exam Vital signs: Vital Signs 08/04/18 10:00 08/04/18 11:00 08/04/18 11:19 Temperature 98.0 F Pulse Rate 52 L 54 L Respiratory Rate 16 Blood Pressure Pulse Oximetry 100 97 08/04/18 11:40 08/04/18 12:00 08/04/18 13:00 Temperature Pulse Rate 68 53 L 41 L Respiratory Rate 18 Blood Pressure Pulse Oximetry 08/04/18 14:00 08/04/18 15:00 08/04/18 16:00 Temperature 98.4 F Pulse Rate 41 L 40 L 44 L Respiratory Rate 17 Blood Pressure 111/59 L Pulse Oximetry 98 08/04/18 17:00 08/04/18 17:33 08/04/18 17:58 Temperature Pulse Rate 42 L 42 L Respiratory Rate Blood Pressure Pulse Oximetry 98 08/04/18 19:00 08/04/18 20:00 08/04/18 21:00 Temperature 97.8 F Pulse Rate 38 L 38 L 38 L Respiratory Rate 16 Blood Pressure 118/66 Pulse Oximetry 99 08/04/18 22:00 08/04/18 23:00 08/04/18 23:15 Temperature 97.8 F Pulse Rate 36 L 59 L 61 Respiratory Rate 20 17 Blood Pressure 137/64 Pulse Oximetry 98 98 08/05/18 00:00 08/05/18 01:00 08/05/18 02:00 Temperature Pulse Rate 65 70 66 Respiratory Rate Blood Pressure Pulse Oximetry 08/05/18 03:00 08/05/18 04:00 08/05/18 04:18 Temperature 97.8 F Pulse Rate 67 68 67 Respiratory Rate 16 17 Blood Pressure 145/68 H Pulse Oximetry 98 08/05/18 05:00 08/05/18 06:00 08/05/18 07:00 Temperature 97.5 F L Pulse Rate 74 75 76 Respiratory Rate 20 Blood Pressure 163/79 H Pulse Oximetry 99 08/05/18 07:33 08/05/18 08:18 08/05/18 08:19 Temperature Pulse Rate 76 Respiratory Rate Blood Pressure Pulse Oximetry 100 100 Intake & Output 08/04/18 08/05/18 08/05/18 18:59 06:59 18:59 Intake Total 1620 / 1620 720 / 720 Output Total 575 / 575 300 / 300 Balance 1045 / 1045 420 / 420 Weight 72 kg Intake: IV 900 / 900 NS Inj 1,000 ML @ 42 mls/hr IV. 900 / 900 CONT .[id number] [facility] Rx#:[id number] Oral 720 / 720 720 / 720 Output: Urine 100 / 100 300 / 300 Urine Amount (Catheter) 475 / 475 Indwelling Urethral Catheter 475 / 475 Other: Post Void Residual 30 # Voids 3 Date of Last Bowel Movement 08/04/18 08/04/18 08/05/18 # Bowel Movements 2 2 Narrative: GENERAL: Resting comfortably. SKIN: Warm and dry, no rashes. HEAD: Atraumatic. Normocephalic. EYES: Pupils equal, round, reactive to light. No scleral icterus. No injection or drainage. ENT: No nasal bleeding or discharge. Moist mucous membranes. Nonerythematous oropharynx. NECK: Trachea midline. No JVD. Thyroid size within normal limits. CARDIOVASCULAR: Regular rhythm. No murmur, no gallops, no rubs. RESPIRATORY: Mild wheezing. GASTROINTESTINAL: Abdomen soft, non-tender, nondistended, normal active bowel sounds. Hepatic and splenic margins not palpable. MUSCULOSKELETAL: Extremities without clubbing or cyanosis. No obvious deformities. Trace edema to mid aldana bilaterally NEUROLOGICAL: Awake and alert. No obvious cranial nerve deficits. Motor grossly within normal limits. No focal deficits. Five out of 5 muscle strength in the arms and legs. Normal speech. PSYCHIATRIC: Appropriate mood and affect; insight and judgment normal. - Urinary Catheter Management Indwelling Urethral Catheter Cath placed during this visit: yes, but has since been removed by the nurse Reason for continuing: Continue criteria not met Insertion date: 08/03/18 Insertion time: 11:00 Removal date: 08/04/18 Removal time: 11:49 Results - Labs CBC & Chem 7: 08/03/18 10:35 08/05/18 05:18 Laboratory Results - last 24 hr 08/04/18 08/04/18 08/04/18 11:17 13:13 16:14 Sodium Potassium Chloride Carbon Dioxide Anion Gap BUN Creatinine Estimated GFR POC Glucose 112 H 141 H 168 H Random Glucose Calcium Magnesium TSH 1008/05/18 08/05/18 20:06 05:18 07:41 Sodium 132 L Potassium 4.0 Chloride 101 Carbon Dioxide 25.6 Anion Gap 5 BUN 13 Creatinine 0.96 Estimated GFR 56 L POC Glucose 124 H 144 H Random Glucose 145 H Calcium 8.9 Magnesium 1.7 TSH 0.058 L Microbiology 08/03/18 10:40 Blood - Peripheral Aerobic Blood Culture - Preliminary No growth in 1 day 08/03/18 10:40 Blood - Peripheral Anaerobic Blood Culture - Preliminary No growth in 1 day 08/03/18 10:35 Blood - Peripheral Aerobic Blood Culture - Preliminary No growth in 1 day 08/03/18 10:35 Blood - Peripheral Anaerobic Blood Culture - Preliminary No growth in 1 day Assessment and Plan - Plan New onset atrial fibrillation Patient was recently taken off of metoprolol. Echo with normal EF. Cardiology consult appreciated. Converted to normal sinus rhythm following resumption of metoprolol twice daily. -Cardiology recommends Eliquis, Lovenox discontinued. -Lopressor halved and Cardizem on hold s/t bradycardia. Follow up with cardiology. -telemetry. Hyperthyroidism TSH low. -decrease levothyroxine and monitor. Type 2 diabetes -Accu-Cheks with sliding scale insulin coverage. -Diabetic diet. Hypomagnesemia Patient presented with magnesium level of 1.2, orally replaced. Chronic. -Recheck magnesium level with a.m. labs. Hypertension Patient was discontinued from her hypertensive medications after she had hypotension with bradycardia a week ago. -monitor and adjust meds per cardiology. Weakness -PT eval. DVT Prophylaxis: Eliquis Discharge Planning: Need heart rate to stabilize
--- NOTE | 2018-08-05 10:25 | P.PNCA ---
Subjective Interval history: HR and BP went low yest - feeling much better today. Medications and Allergies Active Medications: Active Medications Acetaminophen (Tylenol) 650 mg PO Q4H PRN PRN Reason: Temp > 100.4 Last Admin: 08/04/18 09:02 Dose: 650 mg Al Hydroxide/Mg Hydroxide (Milk Of Magnesia Liq) 30 ml PO Q12H PRN PRN Reason: Mild Constipation Last Admin: 08/04/18 11:48 Dose: 30 ml Albuterol (Duoneb Neb (Prn)) 1 ampul NEB Q4HR NEB PRN PRN Reason: WHEEZING Last Admin: 08/05/18 08:18 Dose: 1 ampul Apixaban (Eliquis) 5 mg PO BID [facility] Last Admin: 08/05/18 09:08 Dose: 5 mg Atorvastatin Calcium (Lipitor) 10 mg PO DAILY [facility] Last Admin: 08/05/18 09:10 Dose: 10 mg Dextrose (D50w Vial) 50 ml IV.PUSH UNSCH PRN PRN Reason: PER HYPOGLYCEMIA PROTOCOL Diltiazem HCl (Cardizem Cd 24hr) 240 mg PO DAILY [facility] Last Admin: 08/04/18 09:02 Dose: 240 mg Gabapentin (Neurontin) 300 mg PO TID [facility] Last Admin: 08/05/18 09:11 Dose: 300 mg Glucagon (Glucagon Inj) 1 mg OTHER PRN PRN PRN Reason: for Hypoglycemia Protocol Sodium Chloride (Ns Inj) 1,000 mls @ 0 mls/hr IV.SIG BOLUS [facility] Last Infusion: 08/03/18 23:50 Dose: Infused Sodium Chloride (Ns Inj) 1,000 mls @ 0 mls/hr IV.SIG BOLUS [facility] Insulin Aspart (Novolog Insulin Correctional Sugar Inj) 0 unit SQ AC [facility]; Protocol Last Admin: 08/05/18 08:20 Dose: Not Given Latanoprost (Xalatan 0.005% Opth Drops) 1 drop EACH EYE QPM [facility] Last Admin: 08/04/18 17:19 Dose: 1 drop Levothyroxine Sodium (Synthroid) 75 mcg PO DAILY@0600 [facility] Magnesium Oxide (Mag-Ox) 400 mg PO BID [facility] Last Admin: 08/05/18 09:09 Dose: 400 mg Metoprolol Tartrate (Lopressor) 12.5 mg PO BID [facility] Last Admin: 08/05/18 09:09 Dose: 12.5 mg Miscellaneous (Pill Splitter) 1 each OTHER ONCE [facility] Nitroglycerin (Nitrostat Sl) 0.4 mg SL Q5M PRN PRN Reason: CHEST PAIN Ondansetron HCl (Zofran Inj) 4 mg IV.PUSH Q6H PRN PRN Reason: NAUSEA OR VOMITING Prednisone (Deltasone) 25 mg PO Q24H [facility]; Taper Stop: 08/09/18 16:59 Last Admin: 08/04/18 17:19 Dose: 25 mg Allergies Allergy/AdvReac Type Severity Reaction Status Date / Time Cephalosporins Allergy Intermediate Rash Verified 08/03/18 10:27 penicillin G Allergy Intermediate Rash Verified 08/03/18 10:27 Home Medications Medication Instructions Recorded Confirmed Type aspirin [Aspir-81] 81 mg PO DAILY 07/14/18 08/03/18 History atorvastatin 10 mg PO DAILY 07/14/18 08/03/18 History calcium carbonate [Calcium 500] 1,000 mg PO DAILY 07/14/18 08/03/18 History cholecalciferol (vitamin D3) See Label Instructions .ROUTE 07/14/18 08/03/18 History [Vitamin D3] .COMPLEX cyanocobalamin (vitamin B-12) 500 mcg PO DAILY 07/14/18 08/03/18 History [Vitamin B-12] docusate sodium [Stool Softener] 50 mg PO DAILY 07/14/18 08/03/18 History enalapril maleate 20 mg PO BID 07/14/18 08/03/18 History ferrous sulfate, dried [iron] 65 mg PO DAILY 07/14/18 08/03/18 History gabapentin 300 mg PO TID 07/14/18 08/03/18 History lactobacillus combination no.4 3,000 mmu cells PO DAILY 07/14/18 08/03/18 History [Probiotic] latanoprost 1 drp OPHTHALMIC (EYE) QPM 07/14/18 08/03/18 History levothyroxine 88 mcg PO DAILY 07/14/18 08/03/18 History magnesium 600 mg PO BID 07/14/18 08/03/18 History metoprolol tartrate 50 mg PO BID 07/14/18 08/03/18 History multivitamin See Label Instructions .ROUTE 07/14/18 08/03/18 History .COMPLEX omega [id number] oil [Fish Oil] See Label Instructions .ROUTE 07/14/1808/03 History .COMPLEX polyethylene glycol 3350 [Miralax] 17 g PO DAILY PRN 07/14/18 08/03/18 History psyllium seed (with dextrose) 1.7 g PO DAILY 07/14/18 08/03/18 History [fiber] Physical Exam Vital signs: Vital Signs 08/04/18 11:00 08/04/18 11:19 08/04/18 11:40 Temperature 98.0 F Pulse Rate 54 L 68 Respiratory Rate 16 18 Blood Pressure Pulse Oximetry 100 97 08/04/18 12:00 08/04/18 13:00 08/04/18 14:00 Temperature Pulse Rate 53 L 41 L 41 L Respiratory Rate Blood Pressure Pulse Oximetry 08/04/18 15:00 08/04/18 16:00 08/04/18 17:00 Temperature 98.4 F Pulse Rate 40 L 44 L 42 L Respiratory Rate 17 Blood Pressure 111/59 L Pulse Oximetry 98 08/04/18 17:33 08/04/18 17:58 08/04/18 19:00 Temperature 97.8 F Pulse Rate 42 L 38 L Respiratory Rate 16 Blood Pressure 118/66 Pulse Oximetry 98 99 08/04/18 20:00 08/04/18 21:00 08/04/18 22:00 Temperature Pulse Rate 38 L 38 L 36 L Respiratory Rate Blood Pressure Pulse Oximetry 08/04/18 23:00 08/04/18 23:15 08/05/18 00:00 Temperature 97.8 F Pulse Rate 59 L 61 65 Respiratory Rate 20 17 Blood Pressure 137/64 Pulse Oximetry 98 98 08/05/18 01:00 08/05/18 02:00 08/05/18 03:00 Temperature 97.8 F Pulse Rate 70 66 67 Respiratory Rate 16 Blood Pressure 145/68 H Pulse Oximetry 98 08/05/18 04:00 08/05/18 04:18 08/05/18 05:00 Temperature Pulse Rate 68 67 74 Respiratory Rate 17 Blood Pressure Pulse Oximetry 08/05/18 06:00 08/05/18 07:00 08/05/18 07:33 Temperature 97.5 F L Pulse Rate 75 76 Respiratory Rate 20 Blood Pressure 163/79 H Pulse Oximetry 99 100 08/05/18 08:18 08/05/18 08:19 Temperature Pulse Rate 76 Respiratory Rate Blood Pressure Pulse Oximetry 100 Intake & Output 08/04/18 08/05/18 08/05/18 18:59 06:59 18:59 Intake Total 1620 / 1620 720 / 720 Output Total 575 / 575 300 / 300 300 / 300 Balance 1045 / 1045 420 / 420 -300 / -300 Weight 72 kg Intake: IV 900 / 900 NS Inj 1,000 ML @ 42 mls/hr IV. 900 / 900 CONT .[id number] [facility] Rx#:[id number] Oral 720 / 720 720 / 720 Output: Urine 100 / 100 300 / 300 300 / 300 Urine Amount (Catheter) 475 / 475 Indwelling Urethral Catheter 475 / 475 Other: Post Void Residual 30 # Voids 3 Date of Last Bowel Movement 08/04/18 08/04/18 08/05/18 # Bowel Movements 2 2 Narrative: Alert Tele SR 70's. HR got down to 30's yest aft evening Chest diminished CV S1S2 RRR no edeam - Urinary Catheter Management Indwelling Urethral Catheter Cath placed during this visit: yes, but has since been removed by the nurse Reason for continuing: Continue criteria not met Insertion date: 08/03/18 Insertion time: 11:00 Removal date: 08/04/18 Removal time: 11:49 Results 08/03/18 10:35 08/05/18 05:18 Cardiac Enzymes 08/03/18 08/03/18 08/03/18 Range/Units 10:35 10:35 19:47 AST 43 H 33 (15-37) U/L CK-MB (CK-2) 1.2 (0.5-3.6) ng/mL Troponin I 0.04 0.13 H (0.02-0.05) ng/mL 08/04/18 Range/Units 01:38 AST (15-37) U/L CK-MB (CK-2) (0.5-3.6) ng/mL Troponin I 0.21 H (0.02-0.05) ng/mL Coagulation 08/03/18 Range/Units 10:35 PT 10.5 (9.8-11.6) sec APTT 25.2 (24.3-30.1) sec CBC 08/03/18 Range/Units 10:35 WBC 8.5 (4.0-11.0) th/mm3 RBC 3.89 L (4.00-5.30) mil/mm3 Hgb 13.0 (11.6-15.3) gm/dL Hct 38.7 (35.0-46.0) % Plt Count 164 (150-450) th/mm3 Neut # (Auto) 6.3 (1.8-7.7) th/mm3 Lymph # (Auto) 1.6 (1.0-4.8) th/mm3 [place] # (Auto) 0.5 (0.0-0.9) th/mm3 Eos # (Auto) 0.1 (0.0-0.4) th/mm3 Baso # (Auto) 0.0 (0.0-0.2) th/mm3 Comprehensive Metabolic Panel 08/03/18 08/03/18 08/05/18 Range/Units 10:35 19:47 05:18 Sodium 136 137 132 L (136-145) meq/L Potassium 4.5 3.8 4.0 (3.5-5.1) meq/L Chloride 96 L 102 101 (98-107) meq/L Carbon Dioxide 24.2 22.7 25.6 (21.0-32.0) meq/L BUN 11 12 13 (7-18) mg/dL Creatinine 0.91 0.77 0.96 (0.50-1.00) mg/dL Calcium 9.3 9.3 8.9 (8.5-10.1) mg/dL AST 43 H 33 (15-37) U/L ALT 28 27 (10-53) U/L Alkaline Phosphatase 54 51 (45-117) U/L Total Protein 6.8 6.1 L D (6.4-8.2) g/dL Albumin 3.4 3.2 L (3.4-5.0) g/dL Intake and Output 08/04/18 08/05/18 08/05/18 22:59 06:59 14:59 Intake Total 720 / 720 720 / 720 Output Total 575 / 575 300 / 300 300 / 300 Balance 145 / 145 420 / 420 -300 / -300 Intake: Oral 720 / 720 720 / 720 Output: Urine 100 / 100 300 / 300 300 / 300 Urine Amount (Catheter) 475 / 475 Indwelling Urethral Catheter 475 / 475 Other: Post Void Residual 30 # Voids 3 Date of Last Bowel Movement 08/04/18 08/04/18 08/05/18 # Bowel Movements 2 2 Weight 72 kg - Imaging and Cardiology Imaging: Impressions Head CT 08/03/18 10:26 CONCLUSION: 1. Negative for an acute process. . Chest X-Ray 08/03/18 10:27 CONCLUSION: Prominent right hilum otherwise negative. CT scan with contrast may be of benefit. Assessment and Plan - Assessment (1) Paroxysmal atrial fibrillation with rapid ventricular response Code(s): I48.0 - Paroxysmal atrial fibrillation Status: Acute Plan: Add Eliquis. Stop lovenox. Home tomorrow if stable (2) Hypomagnesemia Code(s): E83.42 - Hypomagnesemia Status: Acute Plan: Check Lab AM (3) COPD (chronic obstructive pulmonary disease) Code(s): J44.9 - Chronic obstructive pulmonary disease, unspecified Status: Acute Plan: HR will not tolerate Dilt 240/ [place] 25 bid. Diltiazem D/C'd. Keep until tomorrow.
[2018-08-05] MEDS: predniSONE 5 MG Tablet PO SCH (17:40)
[2018-08-05] MEDS: Latanoprost 0.005% Opth Drops 2.5 ML Bottle EACH EYE SCH (17:41)
[2018-08-06 04:37] LABS: Calcium 9.1 mg/dL (8.5-10.1); Carbon Dioxide 29.8 meq/L (21.0-32.0); Magnesium 1.2 mg/dL (1.5-2.5); Potassium 4.4 meq/L (3.5-5.1)
[2018-08-06 04:38] LABS: Phosphorus 2.7 mg/dL (2.5-4.9)
[2018-08-06] MEDS ORDERED: Levothyroxine 75 MCG Tablet PO SCH (06:00)
[2018-08-06] MEDS: Insulin NovoLOG Aspart Correctional Sugar Inj SQ SCH ×2 (07:13→11:24)
[2018-08-06] MEDS: Magnesium Oxide 400 MG Tablet PO SCH (08:18)
[2018-08-06] MEDS: Metoprolol Tartrate 25 MG Tablet PO SCH (08:19)
[2018-08-06] MEDS: Gabapentin 100 MG Capsule PO SCH ×2 (08:19→12:43)
[2018-08-06 08:44] VITALS: RESP 16
[2018-08-06] MEDS ORDERED: Metoprolol Tartrate 25 MG Tablet PO SCH ×2 (09:24→21:00)
--- NOTE | 2018-08-06 09:29 | P.PNCA ---
Subjective Interval history: No complaints Medications and Allergies Active Medications: Active Medications Acetaminophen (Tylenol) 650 mg PO Q4H PRN PRN Reason: Temp > 100.4 Last Admin: 08/04/18 09:02 Dose: 650 mg Al Hydroxide/Mg Hydroxide (Milk Of Magnjaleesa Liq) 30 ml PO Q12H PRN PRN Reason: Mild Constipation Last Admin: 08/04/18 11:48 Dose: 30 ml Albuterol (Duoneb Neb (Prn)) 1 ampul NEB Q4HR NEB PRN PRN Reason: WHEEZING Last Admin: 08/06/18 05:40 Dose: 1 ampul Apixaban (Eliquis) 5 mg PO BID [facility] Last Admin: 08/06/18 08:18 Dose: 5 mg Atorvastatin Calcium (Lipitor) 10 mg PO DAILY [facility] Last Admin: 08/06/18 08:18 Dose: 10 mg Dextrose (D50w Vial) 50 ml IV.PUSH UNSCH PRN PRN Reason: PER HYPOGLYCEMIA PROTOCOL Diltiazem HCl (Cardizem Cd 24hr) 240 mg PO DAILY [facility] Last Admin: 08/04/18 09:02 Dose: 240 mg Enalaprilat (Vasotec Inj) 1.25 mg IV.PUSH Q6H PRN PRN Reason: sbp>170 or dbp>100 Gabapentin (Neurontin) 300 mg PO TID [facility] Last Admin: 08/06/18 08:19 Dose: 300 mg Glucagon (Glucagon Inj) 1 mg OTHER PRN PRN PRN Reason: for Hypoglycemia Protocol Sodium Chloride (Ns Inj) 1,000 mls @ 0 mls/hr IV.SIG BOLUS [facility] Last Infusion: 08/03/18 23:50 Dose: Infused Sodium Chloride (Ns Inj) 1,000 mls @ 0 mls/hr IV.SIG BOLUS [facility] Insulin Aspart (Novolog Insulin Correctional Sugar Inj) 0 unit SQ AC [facility]; Protocol Last Admin: 08/06/18 07:13 Dose: Not Given Latanoprost (Xalatan 0.005% Opth Drops) 1 drop EACH EYE QPM [facility] Last Admin: 08/05/18 17:41 Dose: 1 drop Levothyroxine Sodium (Synthroid) 75 mcg PO DAILY@0600 [facility] Last Admin: 08/06/18 05:05 Dose: 75 mcg Magnesium Oxide (Mag-Ox) 400 mg PO BID [facility] Last Admin: 08/06/18 08:18 Dose: 400 mg Metoprolol Tartrate (Lopressor) 25 mg PO BID [facility] Miscellaneous (Pill Splitter) 1 each OTHER ONCE [facility] Nitroglycerin (Nitrostat Sl) 0.4 mg SL Q5M PRN PRN Reason: CHEST PAIN Ondansetron HCl (Zofran Inj) 4 mg IV.PUSH Q6H PRN PRN Reason: NAUSEA OR VOMITING Prednisone (Deltasone) 20 mg PO Q24H [facility]; Taper Stop: 08/09/18 16:59 Last Admin: 08/05/18 17:40 Dose: 20 mg Allergies Allergy/AdvReac Type Severity Reaction Status Date / Time Cephalosporins Allergy Intermediate Rash Verified 08/03/18 10:27 penicillin G Allergy Intermediate Rash Verified 08/03/18 10:27 Home Medications Medication Instructions Recorded Confirmed Type aspirin [Aspir-81] 81 mg PO DAILY 07/14/18 08/03/18 History atorvastatin 10 mg PO DAILY 07/14/18 08/03/18 History calcium carbonate [Calcium 500] 1,000 mg PO DAILY 07/14/18 08/03/18 History cholecalciferol (vitamin D3) See Label Instructions .ROUTE 07/14/18 08/03/18 History [Vitamin D3] .COMPLEX cyanocobalamin (vitamin B-12) 500 mcg PO DAILY 07/14/18 08/03/18 History [Vitamin B-12] docusate sodium [Stool Softener] 50 mg PO DAILY 07/14/18 08/03/18 History enalapril maleate 20 mg PO BID 07/14/18 08/03/18 History ferrous sulfate, dried [iron] 65 mg PO DAILY 07/14/18 08/03/18 History gabapentin 100 mg PO TID 07/14/18 08/05/18 History lactobacillus combination no.4 3,000 mmu cells PO DAILY 07/14/18 08/03/18 History [Probiotic] latanoprost 1 drp OPHTHALMIC (EYE) QPM 07/14/18 08/03/18 History levothyroxine 88 mcg PO DAILY 07/14/18 08/03/18 History magnesium 600 mg PO BID 07/14/18 08/03/18 History metoprolol tartrate 50 mg PO BID 07/14/18 08/03/18 History multivitamin See Label Instructions .ROUTE 07/14/18 08/03/18 History .COMPLEX omega [id number] oil [Fish Oil] See Label Instructions .ROUTE 07/14/1808/03 History .COMPLEX polyethylene glycol 3350 [Miralax] 17 g PO DAILY PRN 07/14/18 08/03/18 History psyllium seed (with dextrose) 1.7 g PO DAILY 07/14/18 08/03/18 History [fiber] Physical Exam Vital signs: Vital Signs 08/05/18 10:00 08/05/18 11:00 08/05/18 12:00 Temperature 97.6 F Pulse Rate 76 77 76 Respiratory Rate 16 Blood Pressure 150/68 H Pulse Oximetry 99 08/05/18 13:00 08/05/18 14:00 08/05/18 15:00 Temperature 97.5 F L Pulse Rate 74 72 69 Respiratory Rate 18 Blood Pressure 149/72 H Pulse Oximetry 100 08/05/18 16:00 08/05/18 17:00 08/05/18 18:00 Temperature Pulse Rate 70 68 72 Respiratory Rate Blood Pressure Pulse Oximetry 08/05/18 19:00 08/05/18 20:00 08/05/18 20:21 Temperature 97.8 F Pulse Rate 69 72 Respiratory Rate 20 Blood Pressure 153/69 H Pulse Oximetry 100 99 08/05/18 21:00 08/05/18 22:00 08/05/18 23:00 Temperature 97.9 F Pulse Rate 70 74 70 Respiratory Rate 20 Blood Pressure 169/74 H Pulse Oximetry 100 08/06/18 00:00 08/06/18 02:00 08/06/18 03:00 Temperature 97.9 F Pulse Rate 68 68 71 Respiratory Rate 20 Blood Pressure 144/68 H Pulse Oximetry 97 08/06/18 04:00 08/06/18 05:00 08/06/18 05:40 Temperature Pulse Rate 68 65 86 Respiratory Rate 13 Blood Pressure Pulse Oximetry 08/06/18 06:00 08/06/18 07:00 08/06/18 08:00 Temperature 98.0 F Pulse Rate 68 70 76 Respiratory Rate 16 Blood Pressure 173/74 H Pulse Oximetry 97 08/06/18 09:00 Temperature Pulse Rate 78 Respiratory Rate Blood Pressure Pulse Oximetry Intake & Output 10/03/18 10/04/18 10/04/18 18:59 06:59 18:59 Intake Total 720 / 720 Output Total 1000 / 1000 1400 / 1400 Balance -1000 / -1000 -680 / -680 Weight 72.3 kg Intake: Oral 720 / 720 Output: Urine 1000 / 1000 1400 / 1400 Other: Date of Last Bowel Movement 08/05/18 08/04/18 Narrative: Alert Tele: no further natalia Chest: diminished BS CV S1S2 RRR Abd soft No edema - Urinary Catheter Management Indwelling Urethral Catheter Cath placed during this visit: yes, but has since been removed by the nurse Reason for continuing: Continue criteria not met Insertion date: 08/03/18 Insertion time: 11:00 Removal date: 08/04/18 Removal time: 11:49 Results 08/03/18 10:35 08/06/18 03:15 Comprehensive Metabolic Panel 08/05/18 08/06/18 Range/Units 05:18 03:15 Sodium 132 L 137 (136-145) meq/L Potassium 4.0 4.4 (3.5-5.1) meq/L Chloride 101 99 (98-107) meq/L Carbon Dioxide 25.6 29.8 (21.0-32.0) meq/L BUN 13 13 (7-18) mg/dL Creatinine 0.96 0.84 (0.50-1.00) mg/dL Calcium 8.9 9.1 (8.5-10.1) mg/dL Intake and Output 08/05/18 08/06/18 08/06/18 22:59 06:59 14:59 Intake Total 720 / 720 Output Total 700 / 700 1400 / 1400 Balance -700 / -700 -680 / -680 Intake: Oral 720 / 720 Output: Urine 700 / 700 1400 / 1400 Other: Date of Last Bowel Movement 08/04/18 08/04/18 Weight 72.3 kg Assessment and Plan - Assessment (1) Paroxysmal atrial fibrillation with rapid ventricular response Code(s): I48.0 - Paroxysmal atrial fibrillation Status: Acute Plan: Add Eliquis. Stop lovenox. Home tomorrow if stable (2) Hypomagnesemia Code(s): E83.42 - Hypomagnesemia Status: Acute Plan: Will give 2gram IVPB before discharge (3) COPD (chronic obstructive pulmonary disease) Code(s): J44.9 - Chronic obstructive pulmonary disease, unspecified Status: Acute Plan: HR OK. Sinus rhythm. Change metoprolol to 25mg bid. OK to DC home.
[2018-08-06] MEDS ORDERED: Metoprolol Tartrate 25 MG Tablet PO PRN (09:39)
[2018-08-06] MEDS: Mag Sulf 1 gm/100 ml Premix 100 ML IV.SIG SCH ×2 (10:01→11:24)
--- NOTE | 2018-08-06 10:43 | P.DCO ---
- Physical Therapy Order: Evaluate and treat - Home Health Nursing Order: Medical education, Nursing assessment with vital signs Instructions: Patient will need home health nurse for medication management. - Case Management Consult Yes - Certification I have seen patient Ana Zepeda on 08/06/18. My clinical findings support the need for the requested home health care services because: Limited ability to care for self I certify that my clinical findings support that this patient is homebound because: Unsafe to leave home unassisted
[2018-08-06 15:18] VITALS: BP 137/66; PULSE 65; TEMP 98.1; O2SAT 100
--- NOTE | 2018-08-06 16:23 | P.DS ---
Date of admission: 08/03/18 16:11 Primary care physician: Valentino Ellis MD Brief History from admission: 83-year-old female with history of hypertension, hypothyroidism, type 2 diabetes presents to the ER with onset of generalized weakness and malaise. In the ER she was found to be in atrial fibrillation with RVR and does not had a history of this previously. She reports that she was recently taken off of all blood pressure medicines due to bradycardia and hypotension. She apparently had a heart rate of 38 bpm on an office visit 1 week ago and was taken off of her metoprolol. 2 days later she began to have periodic episodes of weakness and dizziness, today the symptoms became persistent and her family was concerned and called EMS. I asked if she is having any active chest pain and she says though it is not painful she does have a sensation of pressure in the central part of her chest without radiation to the jaw or arms. She denies any recent fever, denies dysuria, denies any change to the appearance or smell of her urine. She denies any recent nausea, vomiting, or diarrhea. She does have a history of COPD and was admitted on July 14 and discharged a few days later after being treated for COPD exacerbation, she did go home on Levaquin but has not taken that medicine since approximately July 17. DS: Diagnosis - Discharge Diagnosis (1) COPD (chronic obstructive pulmonary disease) Status: Acute (2) Paroxysmal atrial fibrillation with rapid ventricular response Status: Acute DS: Medications - Discharge Medications Prescriptions: levothyroxine [Synthroid] 75 mcg PO DAILY@0600 30 Days tab magnesium 600 mg PO BID 30 Days #144 tab metoprolol tartrate 25 mg PO BID 30 Days #60 tab DS: Summary Hospital Course: atrial fibrillation with RVR on admission. patient found to have markedly low TSH of 0.05 on admission and the levothyroxine will be decreased. Patient had stopped metoprolol for several days prior to admission. Metoprolol was restarted here with controlled heart rate, however slightly decreased due to bradycardia. She'll be discharged home on metoprolol 25 mg by mouth twice daily. Follow with cardiology, primary care as outpatient. For problem-based summary from most recent progress note, please see below. New onset atrial fibrillation Patient was recently taken off of metoprolol. Echo with normal EF. Cardiology consult appreciated. Converted to normal sinus rhythm following resumption of metoprolol twice daily. -Cardiology recommends Eliqumiladis Lovenox discontinued. -Lopressor halved and Cardizem on hold s/t bradycardia. Follow up with cardiology. -telemetry. = Rate controlled. Discharge home on metoprolol 25 mg twice daily. Patient had not been taking metoprolol for several days prior to admission as per physician directions. Advised patient the importance of continuing on the metoprolol. Hyperthyroidism TSH low. -decrease levothyroxine and monitor. = Decrease levothyroxine to 75 mcg daily. Advised patient that she will need to follow-up with primary care to have this checked. Type 2 diabetes -Accu-Cheks with sliding scale insulin coverage. -Diabetic diet. Hypomagnesemia Patient presented with magnesium level of 1.2, orally replaced. Chronic. -Recheck magnesium level with a.m. labs. = Magnesium low at 1.2 this morning. Replaced IV. Patient was not taking magnesium for several days prior to admission. Will discharge home on increased dose magnesium. 500-600 mg twice daily Hypertension Patient was discontinued from her hypertensive medications after she had hypotension with bradycardia a week ago. -monitor and adjust meds per cardiology. Weakness -PT eval. DVT Prophylaxis: Nataliia Discussed Condition With: Patient, nurse Discharge Planning: Discharge home with home health - Time Spent with Patient Total time spent providing and/or coordinating discharge services: Greater than 30 minutes Exam Vital signs: Vital Signs 08/05/18 17:00 08/05/18 18:00 08/05/18 19:00 Temperature 97.8 F Pulse Rate 68 72 69 Respiratory Rate 20 Blood Pressure 153/69 H Pulse Oximetry 100 08/05/18 20:00 08/05/18 20:21 08/05/18 21:00 Temperature Pulse Rate 72 70 Respiratory Rate Blood Pressure Pulse Oximetry 99 08/05/18 22:00 08/05/18 23:00 08/06/18 00:00 Temperature 97.9 F Pulse Rate 74 70 68 Respiratory Rate 20 Blood Pressure 169/74 H Pulse Oximetry 100 08/06/18 02:00 08/06/18 03:00 08/06/18 04:00 Temperature 97.9 F Pulse Rate 68 71 68 Respiratory Rate 20 Blood Pressure 144/68 H Pulse Oximetry 97 08/06/18 05:00 08/06/18 05:40 08/06/18 06:00 Temperature Pulse Rate 65 86 68 Respiratory Rate 13 Blood Pressure Pulse Oximetry 08/06/18 07:00 08/06/18 08:00 08/06/18 09:00 Temperature 98.0 F Pulse Rate 70 76 78 Respiratory Rate 16 Blood Pressure 173/74 H Pulse Oximetry 97 08/06/18 10:00 08/06/18 11:00 08/06/18 12:00 Temperature 98.2 F Pulse Rate 72 66 70 Respiratory Rate 16 Blood Pressure 177/83 H Pulse Oximetry 99 08/06/18 13:00 08/06/18 14:00 08/06/18 15:00 Temperature 98.1 F Pulse Rate 62 63 65 Respiratory Rate 16 Blood Pressure 137/66 Pulse Oximetry 100 08/06/18 16:00 Temperature Pulse Rate 65 Respiratory Rate Blood Pressure Pulse Oximetry Intake & Output 08/05/18 08/06/18 08/06/18 18:59 06:59 18:59 Intake Total 720 / 720 200 / 200 Output Total 1000 / 1000 1400 / 1400 Balance -1000 / -1000 -680 / -680 200 / 200 Weight 72.3 kg Intake: IV 200 / 200 Magnesium Sulfate 1 gm/D5W 100 200 / 200 ml Premix 100 ML @ 100 mls/hr IV.SIG Q1H [facility] Rx#:[id number] Oral 720 / 720 Output: Urine 1000 / 1000 1400 / 1400 Other: Date of Last Bowel Movement 08/05/18 08/04/18 Results Procedures completed during hospitalization: no invasive procedures. Labs on day of discharge: Labs from last 24 hours 08/06/18 08/06/18 08/05/18 10:51 03:15 19:28 Sodium 137 Potassium 4.4 Chloride 99 Carbon Dioxide 29.8 Anion Gap 8 BUN 13 Creatinine 0.84 Estimated GFR 65 L POC Glucose 202 H 118 H Random Glucose 126 H Calcium 9.1 Phosphorus 2.7 Magnesium 1.2 L 08/05/18 17:39 Sodium Potassium Chloride Carbon Dioxide Anion Gap BUN Creatinine Estimated GFR POC Glucose 91 Random Glucose Calcium Phosphorus Magnesium Preliminary micro results at discharge 08/03/18 10:40 Aerobic Blood Culture - Preliminary Blood - Peripheral No growth in 3 days Anaerobic Blood Culture - Preliminary No growth in 3 days 08/03/18 10:35 Aerobic Blood Culture - Preliminary Blood - Peripheral No growth in 3 days Anaerobic Blood Culture - Preliminary No growth in 3 days - Impressions ITS Impressions Head CT 08/03/18 10:26 CONCLUSION: 1. Negative for an acute process. . Chest X-Ray 08/03/18 10:27 CONCLUSION: Prominent right hilum otherwise negative. CT scan with contrast may be of benefit. Discharge Plan - Discharge Disposition Patient Disposition: 06 Disch W/Home Health Service - Discharge Condition Condition: Good - Discharge Order Discharge Orders: Discharge Order (Routine); Ordered 08/06/18 Ordered By: Surendra Coates - Discharge Details Anticipated Discharge Date: 08/06/18 - Physicians Team Primary Care Provider: Valentino Ellis Attending Provider: Surendra Coates Other Providers: Ap Khan MD
--- NOTE | 2018-08-06 16:23 | P.PNIM ---
Subjective Interval history: Patient says he is feeling well. Denies any chest pain. Reports shortness of breath is improved Physical Exam Vital signs: Vital Signs 08/05/18 17:00 08/05/18 18:00 08/05/18 19:00 Temperature 97.8 F Pulse Rate 68 72 69 Respiratory Rate 20 Blood Pressure 153/69 H Pulse Oximetry 100 08/05/18 20:00 08/05/18 20:21 08/05/18 21:00 Temperature Pulse Rate 72 70 Respiratory Rate Blood Pressure Pulse Oximetry 99 08/05/18 22:00 08/05/18 23:00 08/06/18 00:00 Temperature 97.9 F Pulse Rate 74 70 68 Respiratory Rate 20 Blood Pressure 169/74 H Pulse Oximetry 100 08/06/18 02:00 08/06/18 03:00 08/06/18 04:00 Temperature 97.9 F Pulse Rate 68 71 68 Respiratory Rate 20 Blood Pressure 144/68 H Pulse Oximetry 97 08/06/18 05:00 08/06/18 05:40 08/06/18 06:00 Temperature Pulse Rate 65 86 68 Respiratory Rate 13 Blood Pressure Pulse Oximetry 08/06/18 07:00 08/06/18 08:00 08/06/18 09:00 Temperature 98.0 F Pulse Rate 70 76 78 Respiratory Rate 16 Blood Pressure 173/74 H Pulse Oximetry 97 08/06/18 10:00 08/06/18 11:00 08/06/18 12:00 Temperature 98.2 F Pulse Rate 72 66 70 Respiratory Rate 16 Blood Pressure 177/83 H Pulse Oximetry 99 08/06/18 13:00 08/06/18 14:00 08/06/18 15:00 Temperature 98.1 F Pulse Rate 62 63 65 Respiratory Rate 16 Blood Pressure 137/66 Pulse Oximetry 100 08/06/18 16:00 Temperature Pulse Rate 65 Respiratory Rate Blood Pressure Pulse Oximetry Intake & Output 08/05/18 08/06/18 08/06/18 18:59 06:59 18:59 Intake Total 720 / 720 200 / 200 Output Total 1000 / 1000 1400 / 1400 Balance -1000 / -1000 -680 / -680 200 / 200 Weight 72.3 kg Intake: IV 200 / 200 Magnesium Sulfate 1 gm/D5W 100 200 / 200 ml Premix 100 ML @ 100 mls/hr IV.SIG Q1H [facility] Rx#:[id number] Oral 720 / 720 Output: Urine 1000 / 1000 1400 / 1400 Other: Date of Last Bowel Movement 08/05/18 08/04/18 Narrative: GENERAL: Patient sitting up in bed. Appears comfortable. Alert and oriented x3. SKIN: Warm and dry. HEAD: Normocephalic. EYES: No scleral icterus. No injection or drainage. NECK: Supple, trachea midline. No JVD or lymphadenopathy. CARDIOVASCULAR: Regular rate and rhythm without murmurs, gallops, or rubs. RESPIRATORY: Breath sounds equal bilaterally. No accessory muscle use. GASTROINTESTINAL: Abdomen soft, non-tender, nondistended. MUSCULOSKELETAL: No cyanosis, or edema. BACK: Nontender without obvious deformity. No CVA tenderness. - Urinary Catheter Management Indwelling Urethral Catheter Cath placed during this visit: yes, but has since been removed by the nurse Reason for continuing: Continue criteria not met Insertion date: 08/03/18 Insertion time: 11:00 Removal date: 08/04/18 Removal time: 11:49 Results - Labs CBC & Chem 7: 08/03/18 10:35 08/06/18 03:15 Laboratory Results - last 24 hr 08/05/18 08/05/18 08/06/18 17:39 19:28 03:15 Sodium 137 Potassium 4.4 Chloride 99 Carbon Dioxide 29.8 Anion Gap 8 BUN 13 Creatinine 0.84 Estimated GFR 65 L POC Glucose 91 118 H Random Glucose 126 H Calcium 9.1 Phosphorus 2.7 Magnesium 1.2 L 08/06/18 10:51 Sodium Potassium Chloride Carbon Dioxide Anion Gap BUN Creatinine Estimated GFR POC Glucose 202 H Random Glucose Calcium Phosphorus Magnesium Microbiology 08/03/18 10:40 Blood - Peripheral Aerobic Blood Culture - Preliminary No growth in 3 days 08/03/18 10:40 Blood - Peripheral Anaerobic Blood Culture - Preliminary No growth in 3 days 08/03/18 10:35 Blood - Peripheral Aerobic Blood Culture - Preliminary No growth in 3 days 08/03/18 10:35 Blood - Peripheral Anaerobic Blood Culture - Preliminary No growth in 3 days Assessment and Plan - Assessment (1) COPD (chronic obstructive pulmonary disease) Code(s): J44.9 - Chronic obstructive pulmonary disease, unspecified Status: Acute (2) Paroxysmal atrial fibrillation with rapid ventricular response Code(s): I48.0 - Paroxysmal atrial fibrillation Status: Acute - Plan New onset atrial fibrillation Patient was recently taken off of metoprolol. Echo with normal EF. Cardiology consult appreciated. Converted to normal sinus rhythm following resumption of metoprolol twice daily. -Cardiology recommends Ankita William discontinued. -Lopressor halved and Cardizem on hold s/t bradycardia. Follow up with cardiology. -telemetry. = Rate controlled. Discharge home on metoprolol 25 mg twice daily. Patient had not been taking metoprolol for several days prior to admission as per physician directions. Advised patient the importance of continuing on the metoprolol. Hyperthyroidism TSH low. -decrease levothyroxine and monitor. = Decrease levothyroxine to 75 mcg daily. Advised patient that she will need to follow-up with primary care to have this checked. Type 2 diabetes -Accu-Cheks with sliding scale insulin coverage. -Diabetic diet. Hypomagnesemia Patient presented with magnesium level of 1.2, orally replaced. Chronic. -Recheck magnesium level with a.m. labs. = Magnesium low at 1.2 this morning. Replaced IV. Patient was not taking magnesium for several days prior to admission. Will discharge home on increased dose magnesium. 500-600 mg twice daily Hypertension Patient was discontinued from her hypertensive medications after she had hypotension with bradycardia a week ago. -monitor and adjust meds per cardiology. Weakness -PT eval. DVT Prophylaxis: Nataliia Discussed Condition With: Patient, nurse Discharge Planning: Discharge home with home health
== END 2018-08-06 16:57 | disposition home health service (06) ==
LOC: NEPE 10:16 → HSDI 16:11 → NEDA 16:40 → HCPC 17:20
PROVIDERS: ADMIT Internal Medicine; ATTEND Internal Medicine